=== PATIENT | male | born 1940 | race Caucasian/White ===

== ENCOUNTER → 2016-10-07 | Day surgery (SDC) | payer OTHER, BC ==
[2016-10-05 08:12] VITALS: BMI 27.0
[~2016-10-07] VITALS: Ht 182.9 cm; Wt 90.9 kg
[~2016-10-07] MED LIST: CARB25TA12 PO; ENTA200T PO; LIDOCAINE HCL 2% 2 ML VIAL (20MG/ML) ONE; MIDAZOLAM HCL 1 MG/ML 2ML VIAL ONE; ONDANSETRON INJ 2 MG/ML 2 ML VIAL ONE; PRAM3TAB PO; PROB1TAB16 PO; PROPOFOL IV EMULSION 10 MG/ML 20 ML VIAL IV ONE; RASA1TAB PO; SODIUM CHLORIDE 0.9% 500ML 500 ML IV ONE; TPRSR50 PO; WARF2.5T8 PO
[2016-10-07 12:29] VITALS: Ht 182.9 cm; Wt 90.9 kg
--- NOTE | 2016-10-07 13:06 | Endo History and Physical ---
History & Physical Date of Service: Oct 07, 2016. Chief Complaint: Hx polyps Referring Physician: Dr. Lan Nolasco History of Present Illness 76 yo CM who presents for colonoscopy secondary to history of polyps. Past Surgical History Hx Cardiac Surgery: No Hx Internal Defibrillator: No Hx Pacemaker: No Hx Abdominal Surgery: Yes (HERNIA REPAIR) Hx of Implantable Prosthesis: No Hx Post-Op Nausea and Vomiting: No Hx Cancer Surgery: Yes (BCC(MULTI) SCC(X1) REMOVALS) Hx Thoracic Surgery: No Hx Orthopedic: No Hx Urinary Tract Surgery: No Family History Colon CA Social History Smoking Status: Former Smoker Hx Substance Use: No Hx Alcohol Use: No Allergies Coded Allergies: No Known Allergies (Verified , 10/07/16) Current Medications Reported Home Medications Medications Dose Route/Sig Max Daily Dose Days Date Category Probiotic (Probiotic Product) 1 Tab Tab 2 Tabs PO QAM 10/05/16 Reported Metoprolol Succinate ER (Metoprolol Succinate) 50 Mg Tabcr 1 Tab PO DAILY PRN 10/05/16 Reported Mirapex Er (Pramipexole Dihydrochloride) 3 Mg Tab 1 Tab PO HS 10/05/16 Reported Azilect (Rasagiline Mesylate) 1 Mg Tab 1 Mg PO QAM 10/05/16 Reported Sinemet 25MG/100MG (Carbidopa/Levodopa) Tab 2.5 Tabs PO Q6H 10/05/16 Reported Comtan (Entacapone) 200 Mg Tab 200 Mg PO TID 10/05/16 Reported Jantoven (Warfarin Sodium) 2.5 Mg Tab 2.5 Mg PO QAM 10/05/16 Reported Vital Signs Weight (Kilograms): 90.91 Height (Feet): 6 Height (Inches): 0 Date Time Temp Pulse Resp B/P Pulse Ox O2 Delivery O2 Flow Rate FiO2 10/07/16 12:34 36.3 73 20 100/55 94 Room Air Physical Exam General Appearance: WD/WN, no apparent distress Respiratory/Chest: Auscultation: breath sounds normal Cardiovascular: Heart Auscultation: RRR Abdomen: Bowel Sounds: normal Inspection & Palpation: soft, non-distended, no tenderness, guarding & rebound Assessment and Plan Assessment: 76 yo CM who presents for colonoscopy secondary to history of polyps. Plan: Proceed with colonoscopy.
--- NOTE | 2016-10-07 13:34 | Discharge Instructions ---
Endoscopy Patient Instructions Date / Procedure(s) Performed Oct 07, 2016. Colonoscopy Allergy Information Coded Allergies: No Known Allergies (Verified , 10/07/16) Discharge Date / Findings Oct 07, 2016. Colon polyps Diverticulosis Internal hemorrhoids Medication Instructions Stopped Medication(s): Warfarin Restart Stopped Medication(s): OK to resume all medications today as prescribed. Reported Home Medications Medications Dose Route/Sig Max Daily Dose Days Date Category Probiotic (Probiotic Product) 1 Tab Tab 2 Tabs PO QAM 10/05/16 Reported Metoprolol Succinate ER (Metoprolol Succinate) 50 Mg Tabcr 1 Tab PO DAILY PRN 10/05/16 Reported Mirapex Er (Pramipexole Dihydrochloride) 3 Mg Tab 1 Tab PO HS 10/05/16 Reported Azilect (Rasagiline Mesylate) 1 Mg Tab 1 Mg PO QAM 10/05/16 Reported Sinemet 25MG/100MG (Carbidopa/Levodopa) Tab 2.5 Tabs PO Q6H 10/05/16 Reported Comtan (Entacapone) 200 Mg Tab 200 Mg PO TID 10/05/16 Reported Jantoven (Warfarin Sodium) 2.5 Mg Tab 2.5 Mg PO QAM 10/05/16 Reported Provider Instructions Activity Restrictions - No exercising or heavy lifting for 24 hours. - Do not drink alcohol the day of the procedure. - Do not drive a car or operate machinery until the day after the procedure. - Do not make any important decisions or sign important papers in 24 hours after the procedure. Following Day: - Return to full activity which may include returning to work/school. Diet Start your diet with liquids and light foods (jello, soup, juice, toast). Then eat your usual diet if not nauseated. Treatment For Common After Affects For mild abdominal pain, bloating, or excessive gas: - Rest - Eat lightly - Lie on right side Follow-Up Information Follow-up with Dr. Lan Nolasco as scheduled Anesthesia Information What You Should Know You have had a procedure that required some medicine to reduce anxiety and discomfort. This treatment is called moderate sedation. After receiving the treatment, you may be sleepy, but you will be able to breathe on your own. The effects of the treatment may last for several hours. Follow these instructions along with Activity/Diet recommendations noted above: * Do NOT do anything where dizziness or clumsiness would be dangerous. * Rest quietly at home today, then you can be up and about tomorrow. * Have a responsible person stay with you the rest of today. * You may have had an I.V. today. If so, you may take the dressing off later today. Recommendations Call your doctor if: * Trouble breathing * Continuous vomiting for more than 24 hours * Temperature above 101 degrees * Severe abdominal pain or bloating * Pain not relieved by pain medicine ordered * There is increased drainage or redness from any incision * A large amount of rectal bleeding greater than 2-3 tablespoons. (If you had a polyp/s removed or have hemorrhoids, a small amount of blood - from the rectum is to be expected.) * You have any unanswered questions or concerns. IN THE EVENT OF A SERIOUS EMERGENCY, GO TO THE NEAREST EMERGENCY ROOM Your discharge instructions were prepared by provider Elvin Neri. Patient Instructions Signature Page Efrem Perea Patient (or Guardian) Signature/Date: I have read and understand the instructions given to me by my caregivers. Caregiver/RN/Doctor Signature/Date: The above-named patient and/or guardian has received patient instructions on this date. + Original Patient Signature Page (only) stays with chart. Please make copy for patient.
--- NOTE | 2016-10-07 13:38 | GI REPORT ---
Procedure Date: 10/07/2016 1:03 PM Procedure: Colonoscopy Indications: High risk colon cancer surveillance: Personal history of colonic polyps, Family history of colon cancer in a first-degree relative Medicines: Monitored Anesthesia Care Complications: No immediate complications. Estimated Blood Loss: Estimated blood loss: none. Procedure: Pre-Anesthesia Assessment: - Prior to the procedure, a History and Physical was performed, and patient medications and allergies were reviewed. The patient's tolerance of previous anesthesia was also reviewed. The risks and benefits of the procedure and the sedation options and risks were discussed with the patient. All questions were answered, and informed consent was obtained. Prior Anticoagulants: The patient has taken Coumadin (warfarin), last dose was 1 day prior to procedure. ASA Grade Assessment: III - A patient with severe systemic disease. After reviewing the risks and benefits, the patient was deemed in satisfactory condition to undergo the procedure. After I obtained informed consent, the scope was passed under direct vision. Throughout the procedure, the patient's blood pressure, pulse, and oxygen saturations were monitored continuously. The scope was introduced through the anus and advanced to the cecum, identified by appendiceal orifice and ileocecal valve. The colonoscopy was performed without difficulty. The patient tolerated the procedure well. The quality of the bowel preparation was poor. The terminal ileum, ileocecal valve, appendiceal orifice, and rectum were photographed. Findings: Two sessile polyps were found in the ascending colon. The polyps were 4 to 6 mm in size. These polyps were removed with a hot snare. Resection was complete, but the polyp tissue was not retrieved. Multiple small-mouthed diverticula were found in the sigmoid colon. Non-bleeding internal hemorrhoids were found during retroflexion. The hemorrhoids were small. Impression: - Preparation of the colon was poor. - Two 4 to 6 mm polyps in the ascending colon, removed with a hot snare. Complete resection. Polyp tissue not retrieved. - Diverticulosis in the sigmoid colon. - Non-bleeding internal hemorrhoids. Recommendation: - Resume previous diet. - Continue present medications. - Repeat colonoscopy in 6 months because the bowel preparation was poor. - Return to primary care physician as previously scheduled. Elvin Neri DO 10/07/2016 1:36:50 PM This report has been signed electronically. Note Initiated On: 10/07/2016 1:03 PM
[2016-10-07 14:06] VITALS: BP 117/67; PULSE 78; O2SAT 95
--- NOTE | 2016-10-07 14:20 | Anesthesiology Progress Note ---
Anesthesia Post Op Note Date & Time Oct 07, 2016 at 14:20 Vital Signs Pain Intensity: 0 Vital Signs Past 12 Hours Date Time Temp Pulse Resp B/P Pulse Ox O2 Delivery O2 Flow Rate FiO2 10/07/16 14:06 78 20 117/67 95 Room Air 10/07/16 13:51 78 20 99/69 96 Room Air 10/07/16 13:36 86 20 112/77 96 Nasal Cannula 5 10/07/16 12:34 36.3 73 20 100/55 94 Room Air Notes Mental Status: alert / awake / arousable, participated in evaluation Pt Amnestic to Procedure: Yes Nausea / Vomiting: adequately controlled Pain: adequately controlled Airway Patency, RR, SpO2: stable & adequate BP & HR: stable & adequate Hydration State: stable & adequate Anesthetic Complications: no major complications apparent
== END | disposition home or self-care (01) ==
LOC: C.GI 12:05
PROVIDERS: ATTEND Internal Medicine
DX: Z12.11 Encounter for screening for malignant neoplasm of colon (principal); D12.2 Benign neoplasm of ascending colon; K57.30 Diverticulosis of large intestine without perforation or abscess without bleeding; K64.8 Other hemorrhoids; Z86.010 Personal history of colon polyps; G20 Parkinson's disease; I48.91 Unspecified atrial fibrillation; Z98.890 Other specified postprocedural states; Z87.891 Personal history of nicotine dependence; Z68.27 Body mass index [BMI] 27.0-27.9, adult; Z79.01 Long term (current) use of anticoagulants; Z80.0 Family history of malignant neoplasm of digestive organs; Z85.828 Personal history of other malignant neoplasm of skin

== ENCOUNTER → 2016-11-05 | Outpatient (CLI) | payer OTHER, BC ==
[~2016-11-05] MED LIST changes: -LIDOCAINE HCL 2% 2 ML VIAL (20MG/ML) ONE; -MIDAZOLAM HCL 1 MG/ML 2ML VIAL ONE; -ONDANSETRON INJ 2 MG/ML 2 ML VIAL ONE; -PROPOFOL IV EMULSION 10 MG/ML 20 ML VIAL IV ONE; -SODIUM CHLORIDE 0.9% 500ML 500 ML IV ONE
[2016-11-05 16:01] LABS: CREATININE 1.2 mg/dl (0.6-1.4)
--- NOTE | 2016-11-13 08:46 | CODING QUERY NO DIAGNOSIS ---
: 1940 TREATMENT RENDERED WITHOUT A DIAGNOSIS To promote full compliance with coding requirements relating to patient care, physician participation is requested in all cases of clinical information systems director uncertainty. Please assist us with providing a diagnosis/symptom for the test(s) below: A diagnosis/symptom was not documented on your Order. A valid diagnosis/symptom is required to bill all insurances. Please remember that we are unable to code a diagnosis of rule out, probable, possible, questionable, or suspected. Tests that require a diagnosis: DOS: 11/05/16 * UA DIAGNOSIS: * Creatinine DIAGNOSIS: Provider Signature: Date: Thank you Cierra Zamora Health Information Management Once completed, please kindly fax back to [phone] For questions please call [phone]
== END | disposition home or self-care (01) ==
LOC: C.LAB1850 13:33
PROVIDERS: ATTEND Internal Medicine Nephrology
DX: Z52.4 Kidney donor (principal)

== ENCOUNTER 2017-10-19 12:58 | Emergency (ER) | payer OTHER, BC ==
[~2017-10-19] VITALS: Ht 188 cm; Wt 95.2 kg
[2017-10-19 13:24] VITALS: TEMP 36.7; Ht 188 cm; Wt 95.2 kg
[2017-10-19] MEDS ORDERED: AMOXICILLIN/CLAVULANATE TAB 875 MG TAB PO ONE (14:15)
--- NOTE | 2017-10-19 14:21 | EMERGENCY ROOM VISIT NOTE ---
History Report prepared by Ebenezer: Elly Ross Under the Supervision of: Dr. Luis Cadena M.D. First contact with patient: 14:05 Chief Complaint: INFECTION Stated Complaint: INFECTED LACERATION LEFT LEG Nursing Triage Summary: Pt reports laceration LLE that he is concerned is infected. States lac 4 weeks ago. Increased redness and swelling. States was seen in [place] for it and it was sutured. History of Present Illness The patient is a 77 year old male who presents to the Emergency Room with complaints of a left lower extremity infection beginning today. The patient states that four weeks ago, he ran into the side of a table which caused a laceration of his left lower leg. The patient states that he got it sutured in [place]. He reports that today he has had swelling and drainage of his left lower extremity, but no odor or pain. The patient also denies having fevers and chills. He states that he is on Coumadin, and reports that he is not diabetic. Source of History: patient Onset: today Position: leg (left) Quality: other (infection ) Associated Symptoms: No fevers, No chills Note: additional symptoms: swelling and drainage of left lower extremity denies: odor and pain of the left lower extremity Review of Systems See HPI for pertinent positives & negatives. A total of 10 systems reviewed and were otherwise negative. Past Medical & Surgical Medical Problems: (1) Abdominal hernia Family History FH: colon cancer Social History Smoking Status: Former Smoker Marital Status: Current/Historical Medications Scheduled Amoxicillin & Pot Clavulanate (Augmentin 875-125 mg), 875 MG PO BID Carbidopa/Levodopa (Sinemet 25MG/100MG), 2.5 TABS PO Q6H Entacapone (Comtan), 200 MG PO TID Pramipexole Dihydrochloride (Mirapex Er), 1 TAB PO HS Probiotic Product (Probiotic), 2 TABS PO QAM Rasagiline Mesylate (Azilect), 1 MG PO QAM Warfarin Sod (Jantoven), 2.5 MG PO QAM Scheduled PRN Metoprolol Succinate (Metoprolol Succinate ER), 1 TAB PO DAILY PRN for TACHY Allergies Coded Allergies: No Known Allergies (Verified , 10/07/16) Physical Exam Vital Signs Date Time Temp Pulse Resp B/P (MAP) Pulse Ox O2 Delivery O2 Flow Rate FiO2 10/19/17 14:27 75 18 143/92 96 10/19/17 13:24 36.7 89 16 122/60 93 Room Air Physical Exam GENERAL: Patient is in no acute distress. HEENT: No acute trauma, normocephalic atraumatic, mucous membranes moist, no nasal congestion, no scleral icterus. NECK: No stridor, no adenopathy, no meningismus, trachea is midline. LUNGS: Clear to auscultation bilaterally, no wheeze, no rhonchi, breath sounds equal. HEART: Irregular with a normal rate, no murmurs. ABDOMEN: Soft, nontender, bowel sounds positive, no hernias, no peritonitis. EXTREMITIES: Mild bilateral pedal edema. Left lower extremity has healing laceration with some mild surrounding erythema. No warmth. Clear drainage noted. No evidence clinically for fluctuance. No signs of ascending infection. NEUROLOGIC: Oriented x 3, no acute motor or sensory deficits, no focal weakness. SKIN: No rash, no jaundice, no diaphoresis. Medical Decision & Procedures Medications Administered Medications (Trade) Dose Ordered Sig/Tasha Route Start Time Stop Time Status Last Admin Dose Admin Amoxicillin/ Clavulanate Potassium (Augmentin Tab) 875 mg ONE ONCE PO 10/19/17 14:15 10/19/17 14:16 DC 10/19/17 14:26 875 MG ED Course 1405: The patient was evaluated in room A12B. A complete history and physical exam was performed. 1415: Ordered Augmentin Tab 875 mg PO. 1420: Discussed discharge instructions: He verbalized understanding and agreement. The patient is ready for discharge. Medical Decision The patient is a 77 year old male who presents to the ED with complaints of a left lower extremity infection. Differential diagnoses considered include cellulitis, wound infection, abscess, and hematoma. The patient presents with some clear drainage and some mild erythema to a wound that he suffered about 4 weeks ago. He was concerned about the start of infection. He has not had fever or chills. He has no pain in the area. The patient has some mild erythema around the laceration, there is no pus like drainage. No warmth. No signs of abscess. The patient is not febrile or toxic. A culture of the clear drainage was sent, the results are pending. Given my concerns for the start of cellulitis, the patient was given oral Augmentin. He' ll be discharged on this twice a day. He will follow with his doctor this week. If he has fever, chills, if there is increasing redness or purulent drainage, he will return to the ER for reassessment. Medication Reconcilliation Current Medication List: was personally reviewed by me Blood Pressure Screening Patient's blood pressure: Normal blood pressure Impression Primary Impression: Left leg cellulitis Scribe Attestation The scribe's documentation has been prepared under my direction and personally reviewed by me in its entirety. I confirm that the note above accurately reflects all work, treatment, procedures, and medical decision making performed by me. Departure Information Dispostion Home / Self-Care Prescriptions Amoxicillin & Pot Clavulanate (Augmentin 875-125 mg) 1 Tab Tab 875 MG PO BID for 10 Days, #20 TAB Prov: Luis Cadean M.D. 10/19/17 Referrals Corwin Nolasco D.ORuth (PCP) Forms HOME CARE DOCUMENTATION FORM, IMPORTANT VISIT INFORMATION, WORK / SCHOOL INSTRUCTIONS Patient Instructions My [facility] Additional Instructions augmentin 2x per day for 10 days keep the area dressed and clean with soap and water return for worsening redness, fever, chills, worsening drainage see harrison waters this week for a recheck be sure to have the INR closely followed while on the antibiotics
[2017-10-19] MEDS ORDERED: AMOX875T PO (14:24)
[2017-10-19 14:27] VITALS: BP 143/92; PULSE 75; O2SAT 96
== END 2017-10-19 14:39 | disposition home or self-care (01) ==
LOC: C.EDB 13:00 → C.EDA 14:39
DX: L03.116 Cellulitis of left lower limb (principal); Z79.01 Long term (current) use of anticoagulants; S81.812D Laceration without foreign body, left lower leg, subsequent encounter; W22.8XXD Striking against or struck by other objects, subsequent encounter; Z79.899 Other long term (current) drug therapy

== ENCOUNTER → 2017-12-10 | Outpatient (CLI) | payer OTHER, BC ==
[~2017-12-10] MED LIST changes: -TPRSR50 PO
[2017-12-10 10:20] LABS: BASO % 0.3 %; BASO ABS # 0.02 K/uL (0-0.2); EOS % 2.6 %; EOS ABS # 0.16 K/uL (0-0.5); HEMATOCRIT 49.7 % (42-52); HEMOGLOBIN 16.5 g/dL (14.0-18.0); IG# 0.01 K/uL (0.00-0.02); LYMPH % 27.3 %; MEAN CELL VOLUME 93.2 fL (80-100); MEAN CORPUSCULAR HGB CONC 33.2 g/dl (32-36); MONO % 6.1 %; MONO ABS # 0.38 K/uL (0.11-0.59); NEUT % 63.5 %; NEUT ABS # 3.95 K/uL (1.4-6.5); PLATELET COUNT 168 K/uL (130-400); RED CELL DISTRIBUTION WIDTH CV 14.1 % (11.5-14.5); WHITE BLOOD COUNT 6.22 K/uL (4.8-10.8)
[2017-12-10 10:33] LABS: ALBUMIN 3.8 gm/dl (3.4-5.0); ALT/SGPT 8 U/L (12-78); AST/SGOT 17 U/L (15-37); BLOOD UREA NITROGEN 22 mg/dl (7-18); CALCIUM 8.5 mg/dl (8.5-10.1); CARBON DIOXIDE 30 mmol/L (21-32); CREATININE 1.15 mg/dl (0.60-1.40); GLUCOSE 87 mg/dl (70-99); POTASSIUM 4.2 mmol/L (3.5-5.1); SODIUM 142 mmol/L (136-145)
[2017-12-10 10:44] LABS: ALKALINE PHOSPHATASE 92 U/L (45-117); CHOLESTEROL 152 mg/dl (0-200); LDL CHOLESTEROL CALCULATED 93 mg/dl; TOTAL PROTEIN 7.2 gm/dl (6.4-8.2)
== END | disposition home or self-care (01) ==
LOC: C.LAB 09:13
PROVIDERS: ATTEND Internal Medicine
DX: I48.91 Unspecified atrial fibrillation (principal); W57.XXXA Bitten or stung by nonvenomous insect and other nonvenomous arthropods, initial encounter; G20 Parkinson's disease; R16.1 Splenomegaly, not elsewhere classified; N40.0 Benign prostatic hyperplasia without lower urinary tract symptoms; H91.90 Unspecified hearing loss, unspecified ear; S81.802A Unspecified open wound, left lower leg, initial encounter

== ENCOUNTER → 2018-01-20 | Outpatient (CLI) | payer OTHER, BC ==
[2018-01-20 17:50] LABS: URIC ACID 4.7 mg/dl (2.6-7.2)
--- NOTE | 2018-01-20 18:02 | DIAGNOSTIC IMAGING REPORT ---
CHEST 2 VIEWS ROUTINE CLINICAL HISTORY: 77 years-old Male presenting with R06.09 Dyspnea on [id number]. TECHNIQUE: PA and lateral views of the chest were obtained. COMPARISON: 03/02/2016. FINDINGS: Atherosclerosis of aortic arch. Cardiac silhouette enlarged. Lungs and pleural spaces clear. Osseous structures normal. Upper abdomen normal. IMPRESSION: 1. Cardiomegaly. No other convincing evidence of acute cardiopulmonary disease. Electronically signed by: Jeffery Werner M.D. 01/20/2018 6:01 PM Dictated Date/Time: 01/20/2018 6:00 PM
== END | disposition home or self-care (01) ==
LOC: C.RADBC 15:32
PROVIDERS: ATTEND Internal Medicine
DX: R06.09 Other forms of dyspnea (principal); M25.50 Pain in unspecified joint; M79.1 Myalgia; I73.00 Raynaud's syndrome without gangrene

== ENCOUNTER 2019-08-23 14:44 | Inpatient (IN) ==
[2019-08-23] MEDS ORDERED: SODIUM CHLORIDE 0.9% 1000ML 1,000 ML IV ONE (16:47)
--- NOTE | 2019-08-23 17:13 | Emergency Department Note ---
ED Visit Note Was seen with Dr. Ambrocio, please see his note for details. Resident Activity Tracking Resident Involvement: Resident Care Provided Care Provided: [facility]
[2019-08-23 17:14] LABS: Basophils # (auto) 0.01 K/uL (0-0.2); Basophils % (auto) 0.1 %; Eosinophils # (auto) 0.16 K/uL (0-0.5); Eosinophils % (auto) 2.3 %; Hematocrit (blood only) 46.2 % (42-52); Hemoglobin 15.5 g/dL (14.0-18.0); Immature Granulocytes # (auto) 0.02 K/uL (0.00-0.02); Immature Granulocytes % (auto) 0.3 %; Lymphocytes # (auto) 1.36 K/uL (1.2-3.4); Lymphocytes % (auto) 19.8 %; Mean Corpuscular Hemoglobin 31.3 pg (25-34); Mean Corpuscular Hgb Conc 33.5 g/dL (32-36); Mean Corpuscular Volume 93.3 fL (80-100); Mean Platelet Volume 10.3 fL (7.4-10.4); Monocytes # (auto) 0.52 K/uL (0.11-0.59); Monocytes % (auto) 7.6 %; Neutrophils % (auto) 69.9 %; Platelet Count 153 K/uL (130-400); RDW Coefficient of Variation 14.2 % (11.5-14.5); RDW Standard Deviation 48.1 fL (36.4-46.3); Red Blood Count 4.95 M/uL (4.7-6.1); White Blood Count 6.87 K/uL (4.8-10.8)
--- NOTE | 2019-08-23 17:16 | XRay Report ---
XR chest 1V portable CLINICAL HISTORY: weakness dyspnea COMPARISON STUDY: 08/18/2019 FINDINGS: Minimal parenchymal infiltrative process left lung base. This is combined with platelike at electasis. Mild cardiac enlargement. Lungs otherwise appear clear. IMPRESSION: Minimal interstitial infiltrate left lung base. Stable cardiac enlargement. The above report was generated using voice recognition software. It may contain grammatical, syntax or spelling errors. Electronically signed by: Jose Juan Lemus M.D. 08/23/2019 5:15 PM
[2019-08-23] MEDS ORDERED: PIPERACILLIN/TAZOBACTAM 4.5 GM/120 ML BAG IV ONE (17:24)
[2019-08-23] MEDS ORDERED: PIPERACILL/TAZOBAC CONSULT ACTIVE PRN ×2 (17:24→22:16)
--- NOTE | 2019-08-23 17:24 | Emergency Department Note ---
Entered by Batsheva Moreno acting as a scribe for History of Present Illness General Chief complaint: Hypotension Stated complaint: FAINT, BP LOW Time Seen by Provider: 08/23/19 16:07 Source: patient History of Present Illness Provider complaint: Near Syncope Onset (ago): day(s) 5 Pain Consistency: + other (Episodic) Maximum Pain Intensity: 0 Relieved By: + none Exacerbated By: + movement Associated symptoms: + denies other symptoms (Melena or hematochezia) and + weakness; no chest pain and no shortness of breath The patient is a 79 year old male who presents to the Emergency Room with complaints of episodic near syncope that began 5 days ago. The patient notes that he was at the ED on Wednesday for the same symptoms and was given a halter monitor. The patient states the symptoms are exacerbated by exertion, specifi nicanor going up stairs, and is not relieved by anything specific. The patient reports experiencing weakness but denies any chest pain or shortness of breath. The patient denies experiencing melena or hematochezia. Home Medications Home Medications Medication Instructions Recorded Confirmed Type pramipexole 3 mg tablet,extended 3 mg PO HS #90 tab 04/10/19 08/23/19 History release 24 hr levothyroxine 25 mcg tablet 25 mcg PO QAM #90 tab 05/02/19 08/23/19 History rasagiline 1 mg tablet 1 mg PO QAM #90 tab 05/02/19 08/23/19 History entacapone 200 mg tablet 200 mg PO TID #270 tab 06/29/19 08/23/19 History carbidopa-levodopa 1 tab PO TID 08/18/19 08/23/19 History ergocalciferol (vitamin D2) 50,000 units PO TU 08/18/19 08/23/19 History naproxen sodium [Aleve] 220 mg PO Q8H PRN 08/18/19 08/23/19 History rivaroxaban [Xarelto] 20 mg PO HS 08/18/19 08/23/19 History Allergies Allergy/AdvReac Type Severity Reaction Status Date / Time No Known Drug Allergies Allergy Verified 08/23/19 16:49 Past Med/Surg History Medical History Arthralgia of multiple joints (Acute) Atrial fibrillation (Chronic) BPH (benign prostatic hyperplasia) (Acute) Dyspnea on exertion (Acute) Elevated PSA (Chronic) Hypertension (Chronic) Hypothyroidism, adult (Chronic) Idiopathic polyneuropathy (Acute) Lymphedema (Acute) Moderate mitral regurgitation (Acute) Moderate tricuspid regurgitation (Acute) Parkinson's disease (Chronic) Peripheral edema (Acute) Raynaud's disease (Acute) Splenomegaly (Acute) Venous insufficiency (chronic) (peripheral) (Acute) Visual hallucination (Acute) Vitamin D deficiency (Acute) Family History Unknown Myocardial infarction Father Cardiac disorder Mother Colon cancer Social History Preferred Language: [place] marital status: Current Living Situation: Spouse current occupational status: retired Feels Safe at Home: Yes Smoking Status: Never smoker Review of Systems See HPI for pertinent positives & negatives. and A total of 10 systems reviewed and were otherwise negative Physical Exam Vital Signs Vital Signs - 24 hr 08/23/19 14:55 08/23/19 16:08 08/23/19 16:20 Temperature 36.6 C Temperature Source Oral Pulse Rate 86 77 78 Pulse Rate from SpO2 Sensor Respiratory Rate 16 19 24 Respiratory Effort / Characteristics Non-Labored Spontaneous Respiratory Depth Normal Respiratory Pattern Regular Blood Pressure 131/89 145/119 H Blood Pressure Mean 103 125 Blood Pressure Position Sitting Pulse Oximetry 93 94 Oxygen Delivery Method Room Air Room Air Sepsis Recent Fever Within 48 Hours No Sepsis New/Unexplained Change in Mental Status No Sepsis Action Taken by Nursing No Action Required 08/23/19 16:30 08/23/19 17:00 08/23/19 17:30 Temperature Temperature Source Pulse Rate 84 82 90 Pulse Rate from SpO2 Sensor 92 H Respiratory Rate 24 21 14 Respiratory Effort / Characteristics Respiratory Depth Respiratory Pattern Blood Pressure 160/115 H 152/93 H Blood Pressure Mean 124 107 Blood Pressure Position Pulse Oximetry 93 100 Oxygen Delivery Method Room Air Room Air Sepsis Recent Fever Within 48 Hours Sepsis New/Unexplained Change in Mental Status Sepsis Action Taken by Nursing 08/23/19 17:31 08/23/19 18:30 08/23/19 18:35 Temperature Temperature Source Pulse Rate 83 94 H 81 Pulse Rate from SpO2 Sensor 90 87 Respiratory Rate 16 24 16 Respiratory Effort / Characteristics Respiratory Depth Respiratory Pattern Blood Pressure 162/86 H 180/97 H Blood Pressure Mean 123 124 Blood Pressure Position Pulse Oximetry 95 99 Oxygen Delivery Method Room Air Room Air Sepsis Recent Fever Within 48 Hours Sepsis New/Unexplained Change in Mental Status Sepsis Action Taken by Nursing 08/23/19 18:36 08/23/19 18:37 08/23/19 19:00 Temperature Temperature Source Pulse Rate 87 84 85 Pulse Rate from SpO2 Sensor 87 86 92 H Respiratory Rate 17 12 21 Respiratory Effort / Characteristics Respiratory Depth Respiratory Pattern Blood Pressure 180/97 H Blood Pressure Mean 130 Blood Pressure Position Pulse Oximetry 100 99 97 Oxygen Delivery Method Room Air Room Air Room Air Sepsis Recent Fever Within 48 Hours Sepsis New/Unexplained Change in Mental Status Sepsis Action Taken by Nursing 08/23/19 19:01 08/23/19 19:04 08/23/19 19:08 Temperature Temperature Source Pulse Rate 97 H 89 92 H Pulse Rate from SpO2 Sensor 99 H 88 98 H Respiratory Rate 25 H 26 H 21 Respiratory Effort / Characteristics Respiratory Depth Respiratory Pattern Blood Pressure 219/129 H 203/127 H 193/130 H Blood Pressure Mean 151 150 153 Blood Pressure Position Pulse Oximetry 95 97 96 Oxygen Delivery Method Room Air Room Air Room Air Sepsis Recent Fever Within 48 Hours Sepsis New/Unexplained Change in Mental Status Sepsis Action Taken by Nursing 08/23/19 19:11 08/23/19 19:30 Temperature Temperature Source Pulse Rate 115 H 100 H Pulse Rate from SpO2 Sensor 101 H Respiratory Rate 22 24 Respiratory Effort / Characteristics Respiratory Depth Respiratory Pattern Blood Pressure 218/129 H 204/120 H Blood Pressure Mean 160 174 Blood Pressure Position Pulse Oximetry 97 Oxygen Delivery Method Room Air Sepsis Recent Fever Within 48 Hours Sepsis New/Unexplained Change in Mental Status Sepsis Action Taken by Nursing GENERAL: Awake, alert, cachexia in appearance, in no acute distress HENT: Normocephalic, atraumatic. Oropharynx unremarkable. EYES: Normal conjunctiva. Sclera non-icteric. NECK: Supple. No nuchal rigidity. FROM. No JVD. RESPIRATORY: Bilateral wheezing. CARDIAC: Regular rate, normal rhythm. Extremities warm and well perfused. Pulses equal. ABDOMEN: Soft, non-distended. No tenderness to palpation. No rebound or guarding. No masses. RECTAL: Deferred. MUSCULOSKELETAL: Chest examination reveals no tenderness. The back is symmetrical on inspection without obvious abnormality. There is no CVA tenderness to palpation. No joint edema. LOWER EXTREMITIES: Calves are equal size bilaterally and non-tender. No edema. No discoloration. NEURO: Normal sensorium. No sensory or motor deficits noted. SKIN: No rash or jaundice noted. Course Course 1600: Past medical records reviewed. The patient was evaluated in room B11B. A complete history and physical exam was performed. Administered Medications Ioversol (Optiray 320 125ml) 118 ml IV ONCE PRN PRN Reason: Interaction Checking Stop: 08/27/19 17:58 Last Admin: 08/23/19 18:02 Dose: 118 ml Documented by: [id number] Discontinued Medications Sodium Chloride (Nss 1000ml) 1,000 mls @ 999 mls/hr IV .Q1H1M ONE Stop: 08/23/19 17:47 Last Infusion: 08/23/19 18:12 Dose: 0 mls/hr Documented by: [id number] Admin: 08/23/19 17:11 Dose: 999 mls/hr Documented by: [id number] Piperacillin Sod/Tazobactam Sod (Zosyn) 4.5 gm in 120 mls @ 240 mls/hr IV NOW ONE Stop: 08/23/19 17:53 Last Infusion: 08/23/19 19:07 Dose: 0 mls/hr Documented by: [id number] Admin: 08/23/19 18:37 Dose: 240 mls/hr Documented by: [id number] Medical Decision Making Differential Diagnosis Differential Diagnosis includes but is not limited to dehydration, stroke, anemia, hypoglycemia, hyponatremia, hypernatremia, urinary tract infection, pneumonia, bronchitis, sepsis, gastroenteritis, additional abdominal pathology, metabolic abnormalities and infections. Medical Records Attestation: I reviewed the patient's medical records. Home Medications Current Medication List: was personally reviewed by me Laboratory Data Attestation: I reviewed the patient's lab results. Result diagrams: 08/23/19 17:04 08/23/19 17:04 Lab Results 08/23/19 08/23/19 08/23/19 Range/Units 17:04 17:04 17:08 WBC 6.87 (4.8-10.8) K/uL RBC 4.95 (4.7-6.1) M/uL Hgb 15.5 (14.0-18.0) g/dL Hct 46.2 (42-52) % MCV 93.3 (80-100) fL MCH 31.3 (25-34) pg MCHC 33.5 (32-36) g/dL RDW Std Deviation 48.1 H (36.4-46.3) fL RDW Coeff of Marcia 14.2 (11.5-14.5) % Plt Count 153 (130-400) K/uL MPV 10.3 (7.4-10.4) fL Immature Gran % (Auto) 0.3 % Neut % (Auto) 69.9 % Lymph % (Auto) 19.8 % [place] % (Auto) 7.6 % Eos % (Auto) 2.3 % Baso % (Auto) 0.1 % Immature Gran # (Auto) 0.02 (0.00-0.02) K/uL Neut # (Auto) 4.80 (1.4-6.5) K/uL Lymph # (Auto) 1.36 (1.2-3.4) K/uL [place] # (Auto) 0.52 (0.11-0.59) K/uL Eos # (Auto) 0.16 (0-0.5) K/uL Baso # (Auto) 0.01 (0-0.2) K/uL POC D-Dimer > 450 H* (0-450) ng/mlFEU Sodium 140 (136-145) mmol/L Potassium 4.1 (3.5-5.1) mmol/L Chloride 108 H (98-107) mmol/L Carbon Dioxide 28 (21-32) mmol/L Anion Gap 4.0 (3-11) BUN 22 H (7-18) mg/dl Creatinine 1.02 (0.6-1.4) mg/dl Est Cr Clr Drug Dosing 68.5 ml/min Est GFR ( Amer) 81.8 Est GFR (Non-Af Amer) 70.6 BUN/Creatinine Ratio 21.9 H (10-20) Glucose 85 (70-99) mg/dl Calcium 8.5 (8.5-10.1) mg/dl Total Bilirubin 1.0 (0.2-1) mg/dl AST 18 (15-37) U/L ALT 8 L (12-78) U/L Alkaline Phosphatase 88 (45-117) U/L NT-Pro-B Natriuret Pep 1385 (0-1800) pg/ml Total Protein 6.7 (6.4-8.2) gm/dl Albumin 3.5 (3.4-5.0) gm/dl Globulin 3.2 (2.5-4.0) gm/dl Albumin/Globulin Ratio 1.1 (0.9-2) Urine Color Urine Appearance (Clear) Urine pH (4.5-7.5) Ur Specific [place] (1.000-1.030) Urine Protein (Negative) Urine Glucose (UA) (Negative) Urine Ketones (Negative) Urine Blood (Negative) Urine Nitrite (Negative) Urine Bilirubin (Negative) Urine Urobilinogen (Negative) Ur Leukocyte Esterase (Negative) 08/23/19 Range/Units 18:55 WBC (4.8-10.8) K/uL RBC (4.7-6.1) M/uL Hgb (14.0-18.0) g/dL Hct (42-52) % MCV (80-100) fL MCH (25-34) pg MCHC (32-36) g/dL RDW Std Deviation (36.4-46.3) fL RDW Coeff of Marcia (11.5-14.5) % Plt Count (130-400) K/uL MPV (7.4-10.4) fL Immature Gran % (Auto) % Neut % (Auto) % Lymph % (Auto) % [place] % (Auto) % Eos % (Auto) % Baso % (Auto) % Immature Gran # (Auto) (0.00-0.02) K/uL Neut # (Auto) (1.4-6.5) K/uL Lymph # (Auto) (1.2-3.4) K/uL [place] # (Auto) (0.11-0.59) K/uL Eos # (Auto) (0-0.5) K/uL Baso # (Auto) (0-0.2) K/uL POC D-Dimer (0-450) ng/mlFEU Sodium (136-145) mmol/L Potassium (3.5-5.1) mmol/L Chloride (98-107) mmol/L Carbon Dioxide (21-32) mmol/L Anion Gap (3-11) BUN (7-18) mg/dl Creatinine (0.6-1.4) mg/dl Est Cr Clr Drug Dosing ml/min Est GFR ( Amer) Est GFR (Non-Af Amer) BUN/Creatinine Ratio (10-20) Glucose (70-99) mg/dl Calcium (8.5-10.1) mg/dl Total Bilirubin (0.2-1) mg/dl AST (15-37) U/L ALT (12-78) U/L Alkaline Phosphatase (45-117) U/L NT-Pro-B Natriuret Pep (0-1800) pg/ml Total Protein (6.4-8.2) gm/dl Albumin (3.4-5.0) gm/dl Globulin (2.5-4.0) gm/dl Albumin/Globulin Ratio (0.9-2) Urine Color Yellow Urine Appearance Clear (Clear) Urine pH 7.0 (4.5-7.5) Ur Specific [place] 1.021 (1.000-1.030) Urine Protein Negative (Negative) Urine Glucose (UA) Negative (Negative) Urine Ketones Negative (Negative) Urine Blood Negative (Negative) Urine Nitrite Negative (Negative) Urine Bilirubin Negative (Negative) Urine Urobilinogen Negative (Negative) Ur Leukocyte Esterase Negative (Negative) Imaging Data Radiologist's Impression: Radiology results as stated below per my review and the radiologist's interpretation: XR chest 1V portable CLINICAL HISTORY: weakness dyspnea COMPARISON STUDY: 08/18/2019 FINDINGS: Minimal parenchymal infiltrative process left lung base. This is combined with platelike atelectasis. Mild cardiac enlargement. Lungs otherwise appear clear. IMPRESSION: Minimal interstitial infiltrate left lung base. Stable cardiac enlargement. The above report was generated using voice recognition software. It may contain grammatical, syntax or spelling errors. Electronically signed by: Jose Juan Lemus M.D. 08/23/2019 5:[address] angio chest PE protocol CT DOSE: 542.30 mGy.cm HISTORY: Chest pain PE TECHNIQUE: Multiaxial CT images of the chest were performed following the intravenous administration of contrast to evaluate the pulmonary arteries. Maximal intensity projection images were also obtained. A dose lowering technique was utilized adhering to the principles of ALARA. COMPARISON STUDY: None. FINDINGS: Moderate atherosclerotic change and ectasia of the thoracic aorta. Moderate cardiac enlargement. Minimal pericardial effusion. Pulmonary vasculature enhances appropriately. No significant mediastinal or hilar adenopathy Mid and upper lungs are considered clear. There are interstitial infiltrates at the left and to a lesser extent right base. IMPRESSION: 1. No evidence of pulmonary embolus. 2. Minimal interstitial infiltrative change left and to a lesser extent right base. 3. Minimal pericardial effusion. The above report was generated using voice recognition software. It may contain grammatical, syntax or spelling errors. Electronically signed by: Jose Juan Lemus M.D. 08/23/2019 6:24 PM ECG Data Attestation: I personally reviewed and interpreted this ECG as follows: Indication: + syncope (Near) Rate (beats per minute): 81 Rhythm: + atrial fibrillation ECG Intervals/blocks: + Normal QT-c (QTC 455) ECG [place]: + Right axis deviation ECG ST segments: + Normal ST segments Blood Pressure Blood Pressure Findings: Elevated blood pressure Blood Pressure Disposition: further management by hospitalist [facility] Narrative This is a 79-year-old male who presents emergency department over concerns that the patient is hypotensive and has passed out twice in the past week. Using shared medical decision making with the patient decision was made to send the patient for chest x-ray which was concerning for pneumonia. He does have an elevation in his d-dimer therefore he was sent for CAT scan of the chest which confirmed the pneumonia. Change worsened as the patient's blood pressure here is very labile I did discuss the case with the hospitalist service who did agree to meet the patient. In the meantime the patient started on Zosyn as well as Levaquin. Impression & Plan Syncope, Hypoglycemia, Pneumonia Discharge Plan Visit Data Chief Complaint: Hypotension Stated Complaint: FAINT, BP LOW ED Provider: Tigre Ambrocio ED Midlevel Provider: Dudley Peters Discharge Problem: Syncope, Hypoglycemia, Pneumonia Forms Stand Alone Forms: My [facility] CodeEval Prescriptions Prescriptions: No Action pramipexole 3 mg tablet extended release 24 hr 3 mg PO HS Qty: 90 RF: 0 entacapone 200 mg tablet 200 mg PO TID Qty: 270 RF: 0 levothyroxine 25 mcg tablet 25 mcg PO QAM Qty: 90 RF: 0 rasagiline 1 mg tablet 1 mg PO QAM Qty: 90 RF: 0 naproxen sodium [Aleve] 220 mg Tablet 220 mg PO Q8H PRN (Reason: Pain) RF: 0 carbidopa-levodopa 25-250 mg tablet 1 tab PO TID RF: 0 ergocalciferol (vitamin D2) 50,000 unit capsule 50,000 units PO TU RF: 0 Xarelto 20 mg tablet 20 mg PO HS RF: 0 Discharge Problem: Syncope Qualifiers: Syncope type: unspecified Qualified Code(s): R55 - Syncope and collapse Pneumonia Qualifiers: Pneumonia type: due to unspecified organism Laterality: unspecified laterality Lung location: unspecified part of lung Qualified Code(s): J18.9 - Pneumonia, unspecified organism The scribe's documentation has been prepared under my direction and personally reviewed by me in its entirety. I confirm that the note above accurately reflects all work, treatment, procedures, and medical decision making performed by me.
[2019-08-23 17:33] LABS: Albumin Level 3.5 gm/dl (3.4-5.0); BUN Creatinine Ratio 21.9 (10-20); Calcium 8.5 mg/dl (8.5-10.1); Creatinine Clr Calc Pharmacy 68.5 ml/min; Est GFR (African American) 81.8; Est GFR (Non-African American) 70.6; Potassium 4.1 mmol/L (3.5-5.1)
[2019-08-23 17:38] LABS: Albumin Globulin Ratio 1.1 (0.9-2); Globulin 3.2 gm/dl (2.5-4.0); Total Protein 6.7 gm/dl (6.4-8.2)
[2019-08-23] MEDS ORDERED: OPTIRAY 320 125ml IV PRN (17:59)
--- NOTE | 2019-08-23 18:26 | CT Scan Report ---
CT angio chest PE protocol CT DOSE: 542.30 mGy.cm HISTORY: Chest pain PE TECHNIQUE: Multiaxial CT images of the chest were performed following the intravenous administration of contrast to evaluate the pulmonary arteries. Maximal intensity projection images were also obtaine d. A dose lowering technique was utilized adhering to the principles of ALARA. COMPARISON STUDY: None. FINDINGS: Moderate atherosclerotic change and ectasia of the thoracic aorta. Moderate cardiac enlarge ment. Minimal pericardial effusion. Pulmonary vasculature enhances appropriately. No significant mediastinal or hilar adenopathy Mid and upper lungs are considered clear. There are interstitial infiltrates at the left and to a les ser extent right base. IMPRESSION: 1. No evidence of pulmonary embolus. 2. Minimal interstitial infiltrative change left and to a lesser extent right base. 3. Minimal pericardial effusion. The above report was generated using voice recognition software. It may contain grammatical, syntax or spelling errors. Electronically signed by: Jose Juan Lemus M.D. 08/23/2019 6:24 PM
[2019-08-23 19:19] LABS: Appearance Urine Clear (Clear); Bilirubin Urine Negative (Negative); Blood Urine Negative (Negative); Color Urine Yellow; Glucose Urine UA Negative (Negative); Ketones Urine Negative (Negative); Leukocyte Esterase Urine Negative (Negative); Nitrite Urine Negative (Negative); Protein Urine Negative (Negative); Specific Gravity Urine 1.021 (1.000-1.030); Urobilinogen Urine Negative (Negative)
--- NOTE | 2019-08-23 20:53 | History & Physical Report ---
Date of Service August 23, 2019 Assessment & Plan (1) Syncope: Pt is a 79yo M PMH Parkinson disease, hypothyroid, BPH, HTN, permanent afib, chronic venous insufficiency, Raynaud's, who presents for evaluation after worsening symptoms of lightheadedness and syncope. Syncope Concern for autonomic insufficiency from Parkinson's disease versus early Parkinson's plus. Will order repeat echocardiogram, per outpatient cardiology recommendations. Await results from Holter monitor. Consider consulting cardiology. requested we place cardiology consult; will defer to day team. Will place neurology consult; appreciate recs. Patient follows with Dr. Correia. Consider head/neck MRA. Measure orthostatics. Consider further interventions such as tilt table testing, midodrine supplementation, etc. -Complete neurogenic syncope work-up. Abnormal CT/CXR finding -Symptoms not consistent with acute pneumonia. Patient is not coughing is afebrile, not acutely dyspneic, not hypoxic Blood cultures sent IV fluid hydration. We will convert Zosyn initiated in the ER to p.o. azithromycin. Continue to monitor symptoms. Parkinson's disease Continue home regimen of Carbidopa/levodopa, pramipexole, rasagiline, entacapone. Neurology consulted as above. reports things are overall going okay aside from mild bradykinesia and occasional drooling. PT OT eval and treat Hypothyroidism Continue home medication. TSH normal on arrival. Atrial fibrillation Chronic, permanent Continue Xarelto therapy Rate controlled. Raynauds disease Amlodipine DC'd several months ago due to lightheadedness. Code: Full Dispo: Admit to [facility] DVTP: Xarelto (2) Venous insufficiency (chronic) (peripheral): (3) Raynaud's disease: (4) Parkinson's disease: (5) Hypothyroidism, adult: (6) Elevated PSA: (7) Atrial fibrillation: History of Present Illness Chief Complaint: Near syncope Primary Care Provider: LAURA Willoughby Pt is a 79yo M PMH Parkinson disease, hypothyroid, BPH, HTN, permanent afib, chronic venous insufficiency, Raynaud's who presents with acute worsening of lightheadedness and near-syncopal episodes which have been worsening over the past few months. Patient had a syncopal episode 5 days ago and was evaluated in the ER. [place] it coming on, no injury noted. He followed up with his paper box maker, who recommended Holter monitor, which was turned in yesterday, per , and echocardiogram, which has not been performed yet. Patient notes these episodes seem to be worse with exertion as a compared to orthostatic in nature. Notes that he has been more fatigued in the last few days as well. Denies fever, chills, nausea, vomiting, chest pain. While patient does have ventricula r and valvular dysfunction (noted on echo 2018), concern for symptoms related to autonomic insufficiency and parkinson's vs early parkinson's plus. Patient has been off of his amlodipine for several months now, originally given for raynauds, secondary to these episodes of lightheadedness. Patient denies any signs of acute GI bleed. Work-up in the ER revealed a normal CBC, normal BMP, normal BNP of 1385, d-dimer greater than 450. CT angio was negative for acute pulmonary emboli. Chest x- ray revealed minimal interstitial infiltrate in the left lower lobe. Patient and myself not concerned for aspiration despite patient's occasional drooling from Parkinson's. Patient was afebrile and his vital signs were stable. Please note his blood pressure was relatively higher than his baseline. Allergies Allergy/AdvReac Type Severity Reaction Status Date / Time No Known Drug Allergies Allergy Verified 08/23/19 16:49 Home Medications Home Medications Medication Instructions Recorded Confirmed Type pramipexole 3 mg tablet,extended 3 mg PO HS #90 tab 04/10/19 08/23/19 History release 24 hr levothyroxine 25 mcg tablet 25 mcg PO QAM #90 tab 05/02/19 08/23/19 History rasagiline 1 mg tablet 1 mg PO QAM #90 tab 05/02/19 08/23/19 History entacapone 200 mg tablet 200 mg PO TID #270 tab 06/29/19 08/23/19 History Xarelto 20 mg PO HS 08/18/19 08/23/19 History carbidopa-levodopa 1 tab PO TID 08/18/19 08/23/19 History ergocalciferol (vitamin D2) 50,000 units PO TU 08/18/19 08/23/19 History naproxen sodium [Aleve] 220 mg PO Q8H PRN 12/06/19 12/11/19 History azithromycin [Zithromax] 250 mg PO QAM 4 Days #4 tab 08/24/19 Rx Past Med/Surg History Medical History Arthralgia of multiple joints (Acute) Atrial fibrillation (Chronic) BPH (benign prostatic hyperplasia) (Acute) Dyspnea on exertion (Acute) Elevated PSA (Chronic) Hypertension (Chronic) Hypothyroidism, adult (Chronic) Idiopathic polyneuropathy (Acute) Lymphedema (Acute) Moderate mitral regurgitation (Acute) Moderate tricuspid regurgitation (Acute) Parkinson's disease (Chronic) Peripheral edema (Acute) Raynaud's disease (Acute) Splenomegaly (Acute) Venous insufficiency (chronic) (peripheral) (Acute) Visual hallucination (Acute) Vitamin D deficiency (Acute) Family History Unknown Myocardial infarction Father Cardiac disorder Mother Colon cancer Social History Preferred Language: Fijian Communication Ability: Effective Hospice Rn Required: No Beliefs That Will Affect Care: None marital status: Current Living Situation: Spouse current occupational status: retired Feels Safe at Home: Yes Smoking Status: Never smoker Second Hand Exposure: No ; Hx Alcohol Use: Yes Alcohol type: beer Hx Substance Use: No Review of Systems Review of Systems: All systems reviewed & are unremarkable except as noted in HPI & below Constitutional: + fatigue, + weakness and + daytime sleepiness; no fever and no chills Eyes: no blind spots and no diplopia Respiratory: no cough and no dyspnea Cardiovascular: + lightheadedness, + syncope, + edema (chronic) and + Raynauds symptoms; no chest pain, no radiating jaw, neck or arm pain and no palpitations Gastrointestinal: no abdominal pain, no nausea, no vomiting and no change in bowel habits Genitourinary: + difficulty urinating, + urinary hesitancy and + post-void dribbling Neurologic: + gait abnormality, + falls, + generalized weakness and + abnormal movements Physical Exam Physical Exam: General: chronically ill-appearing male, in no significant distress. HEENT: No scleral icterus, PERRLA, neck supple. Atraumatic. Cardiovascular: Regular rate and irreg/irreg rhythm, faint holosystolic murmur. 1- 2+ pitting edema to shins bilaterally Pulmonary: Clear to auscultation bilaterally, normal work of breathing. Abdomen: Soft, nontender, nondistended, positive bowel sounds. Musculoskeletal: Atraumatic, no peripheral edema. Neurologic: Patient awake alert and oriented x 3, full strength in all 4 extremities. Cranial nerves 2 through 12 grossly intact. Skin: Warm, dry, no rash Results & Data Vital Signs (Past 12 Hours) Vital Signs Temp Pulse Resp BP Pulse Ox 08/23/19 20:47 91 H 15 142/86 H 95 08/23/19 20:30 91 H 18 92 08/23/19 20:01 112 H 17 230/217 H 96 08/23/19 20:00 110 H 17 96 08/23/19 19:30 100 H 24 204/120 H 97 08/23/19 19:11 115 H 22 218/129 H 08/23/19 19:08 92 H 21 193/130 H 96 08/23/19 19:04 89 26 H 203/127 H 97 08/23/19 19:01 97 H 25 H 219/129 H 95 08/23/19 19:00 85 21 97 08/23/19 18:37 84 12 180/97 H 99 08/23/19 18:36 87 17 100 08/23/19 18:35 81 16 180/97 H 99 08/23/19 18:30 94 H 24 08/23/19 17:31 83 16 162/86 H 95 08/23/19 17:30 90 14 100 08/23/19 17:00 82 21 152/93 H 08/23/19 16:30 84 24 160/115 H 93 08/23/19 16:20 78 24 08/23/19 16:08 77 19 145/119 H 94 08/23/19 14:55 97.9 F 86 16 131/89 93 Laboratory Results 08/23/19 08/23/19 08/23/19 Range/Units 18:55 17:08 17:04 WBC (4.8-10.8) K/uL RBC (4.7-6.1) M/uL Hgb (14.0-18.0) g/dL Hct (42-52) % MCV (80-100) fL MCH (25-34) pg MCHC (32-36) g/dL RDW Std Deviation (36.4-46.3) fL RDW Coeff of Marcia (11.5-14.5) % Plt Count (130-400) K/uL MPV (7.4-10.4) fL Immature Gran % (Auto) % Neut % (Auto) % Lymph % (Auto) % Brooks % (Auto) % Eos % (Auto) % Baso % (Auto) % Immature Gran # (Auto) (0.00-0.02) K/uL Neut # (Auto) (1.4-6.5) K/uL Lymph # (Auto) (1.2-3.4) K/uL Brooks # (Auto) (0.11-0.59) K/uL Eos # (Auto) (0-0.5) K/uL Baso # (Auto) (0-0.2) K/uL POC D-Dimer > 450 H* (0-450) ng/mlFEU Sodium 140 (136-145) mmol/L Potassium 4.1 (3.5-5.1) mmol/L Chloride 108 H (98-107) mmol/L Carbon Dioxide 28 (21-32) mmol/L Anion Gap 4.0 (3-11) BUN 22 H (7-18) mg/dl Creatinine 1.02 (0.6-1.4) mg/dl Est Cr Clr Drug Dosing 68.5 ml/min Est GFR ( Amer) 81.8 Est GFR (Non-Af Amer) 70.6 BUN/Creatinine Ratio 21.9 H (10-20) Glucose 85 (70-99) mg/dl Calcium 8.5 (8.5-10.1) mg/dl Total Bilirubin 1.0 (0.2-1) mg/dl AST 18 (15-37) U/L ALT 8 L (12-78) U/L Alkaline Phosphatase 88 (45-117) U/L NT-Pro-B Natriuret Pep 1385 (0-1800) pg/ml Total Protein 6.7 (6.4-8.2) gm/dl Albumin 3.5 (3.4-5.0) gm/dl Globulin 3.2 (2.5-4.0) gm/dl Albumin/Globulin Ratio 1.1 (0.9-2) Urine Color Yellow Urine Appearance Clear (Clear) Urine pH 7.0 (4.5-7.5) Ur Specific [place] 1.021 (1.000-1.030) Urine Protein Negative (Negative) Urine Glucose (UA) Negative (Negative) Urine Ketones Negative (Negative) Urine Blood Negative (Negative) Urine Nitrite Negative (Negative) Urine Bilirubin Negative (Negative) Urine Urobilinogen Negative (Negative) Ur Leukocyte Esterase Negative (Negative) 08/23/19 Range/Units 17:04 WBC 6.87 (4.8-10.8) K/uL RBC 4.95 (4.7-6.1) M/uL Hgb 15.5 (14.0-18.0) g/dL Hct 46.2 (42-52) % MCV 93.3 (80-100) fL MCH 31.3 (25-34) pg MCHC 33.5 (32-36) g/dL RDW Std Deviation 48.1 H (36.4-46.3) fL RDW Coeff of Marcia 14.2 (11.5-14.5) % Plt Count 153 (130-400) K/uL MPV 10.3 (7.4-10.4) fL Immature Gran % (Auto) 0.3 % Neut % (Auto) 69.9 % Lymph % (Auto) 19.8 % Brooks % (Auto) 7.6 % Eos % (Auto) 2.3 % Baso % (Auto) 0.1 % Immature Gran # (Auto) 0.02 (0.00-0.02) K/uL Neut # (Auto) 4.80 (1.4-6.5) K/uL Lymph # (Auto) 1.36 (1.2-3.4) K/uL Brooks # (Auto) 0.52 (0.11-0.59) K/uL Eos # (Auto) 0.16 (0-0.5) K/uL Baso # (Auto) 0.01 (0-0.2) K/uL POC D-Dimer (0-450) ng/mlFEU Sodium (136-145) mmol/L Potassium (3.5-5.1) mmol/L Chloride (98-107) mmol/L Carbon Dioxide (21-32) mmol/L Anion Gap (3-11) BUN (7-18) mg/dl Creatinine (0.6-1.4) mg/dl Est Cr Clr Drug Dosing ml/min Est GFR ( Amer) Est GFR (Non-Af Amer) BUN/Creatinine Ratio (10-20) Glucose (70-99) mg/dl Calcium (8.5-10.1) mg/dl Total Bilirubin (0.2-1) mg/dl AST (15-37) U/L ALT (12-78) U/L Alkaline Phosphatase (45-117) U/L NT-Pro-B Natriuret Pep (0-1800) pg/ml Total Protein (6.4-8.2) gm/dl Albumin (3.4-5.0) gm/dl Globulin (2.5-4.0) gm/dl Albumin/Globulin Ratio (0.9-2) Urine Color Urine Appearance (Clear) Urine pH (4.5-7.5) Ur Specific [place] (1.000-1.030) Urine Protein (Negative) Urine Glucose (UA) (Negative) Urine Ketones (Negative) Urine Blood (Negative) Urine Nitrite (Negative) Urine Bilirubin (Negative) Urine Urobilinogen (Negative) Ur Leukocyte Esterase (Negative) Diagnostic Findings CT angio chest PE protocol CT DOSE: 542.30 mGy.cm HISTORY: Chest pain PE TECHNIQUE: Multiaxial CT images of the chest were performed following the intravenous administration of contrast to evaluate the pulmonary arteries. Maximal intensity projection images were also obtained. A dose lowering technique was utilized adhering to the principles of ALARA. COMPARISON STUDY: None. FINDINGS: Moderate atherosclerotic change and ectasia of the thoracic aorta. Moderate cardiac enlargement. Minimal pericardial effusion. Pulmonary vasculature enhances appropriately. No significant mediastinal or hilar adenopathy Mid and upper lungs are considered clear. There are interstitial infiltrates at the left and to a lesser extent right base. IMPRESSION: 1. No evidence of pulmonary embolus. 2. Minimal interstitial infiltrative change left and to a lesser extent right base. 3. Minimal pericardial effusion. XR chest 1V portable CLINICAL HISTORY: weakness dyspnea COMPARISON STUDY: 08/18/2019 FINDINGS: Minimal parenchymal infiltrative process left lung base. This is combined with platelike atelectasis. Mild cardiac enlargement. Lungs otherwise appear clear. IMPRESSION: Minimal interstitial infiltrate left lung base. Stable cardiac enlargement. Code Status & VTE Plan Code Status Full VTE Prophylaxis Plan VTE Prophylaxis will be ordered: Yes Supervising Physician Co-Signing Physician Notes Attending addendum: I have physically seen this patient, have supervised the medical residents activities, and agree with the H&P unless as otherwise noted. Assessment and Plan: Syncope- The patient will be admitted to telemetry for serial cardiac enzymes, serial EKG's, cardiac rhythm monitoring and a 2-D echocardiogram with Dopplers. Consult cardiology. Results of Holter monitor. Consult neurology. Differential includes Parkinson related autonomic dysfunction, orthostatic hypotension, arrhythmia, seizure disorder, others. Consult PT/OT. Remainder of orders and notations as noted. Resident Activity Tracking Resident Involvement: Resident Care Provided Care Provided: Adult Hospital Medicine (1) Atrial fibrillation Atrial fibrillation type: permanent Qualified Code(s): I48.2 - Chronic atrial fibrillation (2) Syncope Syncope type: unspecified Qualified Code(s): R55 - Syncope and collapse
[2019-08-23] MEDS ORDERED: PRAMIPEXOLE DIHYDROCHLO 0.5 MG TAB PO SCH (22:00)
[2019-08-23] MEDS ORDERED: ALUMINUM/MAGNESIUM SUSP 30 ML UDC PO PRN (22:16)
[2019-08-23] MEDS ORDERED: MAGNESIUM HYDROXIDE SUSP 30 ML UDC PO PRN (22:16)
[2019-08-23] MEDS ORDERED: POLYETHYLENE (MIRALAX) 17 GM PACK PO PRN (22:16)
[2019-08-23] MEDS ORDERED: ACETAMINOPHEN 325 MG TAB PO PRN (22:16)
[2019-08-23] MEDS ORDERED: ONDANSETRON INJ 2 MG/ML 2 ML VIAL IV PRN (22:16)
[2019-08-23] MEDS: CARBIDOPA/LEVODOPA 25-250 1 EA TAB PO SCH (23:06)
[2019-08-23] MEDS: RIVAROXABAN 20 MG TAB PO SCH (23:07)
[2019-08-23] MEDS: ENTACAPONE 200 MG TAB PO SCH (23:07)
[2019-08-23] MEDS: SODIUM CHLORIDE 0.9% 1000ML 1,000 ML IV SCH (23:16)
[2019-08-24] MEDS ORDERED: PIPERACILLIN/TAZOBACTAM 3.375 GM in DEXTROSE 5% 100 ML IV SCH
[2019-08-24] MEDS ORDERED: LEVOTHYROXINE SODIUM 25 MCG TABLET PO SCH (06:30)
[2019-08-24 06:57] LABS: Basophils # (auto) 0.02 K/uL (0-0.2); Basophils % (auto) 0.3 %; Eosinophils # (auto) 0.19 K/uL (0-0.5); Eosinophils % (auto) 2.9 %; Hematocrit (blood only) 45.9 % (42-52); Immature Granulocytes # (auto) 0.01 K/uL (0.00-0.02); Immature Granulocytes % (auto) 0.2 %; Lymphocytes # (auto) 1.49 K/uL (1.2-3.4); Lymphocytes % (auto) 23.1 %; Mean Corpuscular Hemoglobin 30.7 pg (25-34); Mean Corpuscular Hgb Conc 32.7 g/dL (32-36); Mean Corpuscular Volume 93.9 fL (80-100); Monocytes # (auto) 0.41 K/uL (0.11-0.59); Monocytes % (auto) 6.3 %; Neutrophils # (auto) 4.34 K/uL (1.4-6.5); Neutrophils % (auto) 67.2 %; Platelet Count 164 K/uL (130-400); RDW Coefficient of Variation 14.1 % (11.5-14.5); RDW Standard Deviation 47.8 fL (36.4-46.3); Red Blood Count 4.89 M/uL (4.7-6.1); White Blood Count 6.46 K/uL (4.8-10.8)
[2019-08-24 07:35] LABS: BUN Creatinine Ratio 14.1 (10-20); Calcium 8.7 mg/dl (8.5-10.1); Creatinine Clr Calc Pharmacy 60.3 ml/min; Est GFR (Non-African American) 60.4; Potassium 4.2 mmol/L (3.5-5.1)
[2019-08-24] MEDS: CARBIDOPA/LEVODOPA 25-250 1 EA TAB PO SCH ×2 (08:14→14:55)
[2019-08-24] MEDS: ENTACAPONE 200 MG TAB PO SCH ×2 (08:14→14:55)
[2019-08-24] MEDS ORDERED: AZITHROMYCIN 250 MG TAB PO SCH (09:00)
--- NOTE | 2019-08-24 10:10 | Discharge Summary ---
Date of Service August 24, 2019 Admission HPI Per Admitting Provider Pt is a 79yo M PMH Parkinson disease, hypothyroid, BPH, HTN, permanent afib, chronic venous insufficiency, Raynaud's who presents with acute worsening of lightheadedness and near-syncopal episodes which have been worsening over the past few months. Patient had a syncopal episode 5 days ago and was evaluated in the ER. [place] it coming on, no injury noted. He followed up with his corporate licensed broker, who recommended Holter monitor, which was turned in yesterday, per , and echocardiogram, which has not been performed yet. Patient notes these episodes seem to be worse with exertion as a compared to orthostatic in nature. Notes that he has been more fatigued in the last few days as well. Denies fever, chills, nausea, vomiting, chest pain. While patient does have ventricular and valvular dysfunction (noted on echo 2018), concern for symptoms related to autonomic insufficiency and parkinson's vs early parkinson's plus. Patient has been off of his amlodipine for several months now, originally given for raynauds, secondary to these episodes of lightheadedness. Patient denies any signs of acute GI bleed. Work-up in the ER revealed a normal CBC, normal BMP, normal BNP of 1385, d-dimer greater than 450. CT angio was negative for acute pulmonary emboli. Chest x- ray revealed minimal interstitial infiltrate in the left lower lobe. Patient and myself not concerned for aspiration despite patient's occasional drooling from Parkinson's. Patient was afebrile and his vital signs were stable. Please note his blood pressure was relatively higher than his baseline. Principal Diagnosis Syncope; Pneumonia Discharge Exam Constitutional WD/WN, vitals as above cooperative and comfortable; no acute distress Eyes + anicteric sclerae and EOM intact bilaterally ENMT external ear and nose normal, oropharynx normal Neck normal visual inspection and trachea midline Respiratory no respiratory distress Auscultation: + crackles (mild bilateral bases; otherwise lungs clear to auscultation) Cardiovascular Rate/Rhythm: regular rate and + irregularly irregular Gastrointestinal (Abdomen) Percussion/Palpation: abdomen soft; abdomen nontender, no guarding and abdomen not rigid Musculoskeletal Head/Neck/Chest: normocephalic and head atraumatic Skin no rashes, warm and dry Neurologic moves all extremities and awake Psychiatric Orientation: alert and oriented x 3 Discharge Data Allergies Allergy/AdvReac Type Severity Reaction Status Date / Time No Known Drug Allergies Allergy Verified 08/23/19 16:49 Consultations 08/23/19 19:10 ED Decision to Admit Stat 08/23/19 22:16 Consult Case Management - Discharge Planning Routine 08/24/19 01:35 Consult Neurology Routine 08/24/19 08:08 Consult Cardiology Routine Ordered Studies 08/23/19 17:24 CT angio chest PE protocol Stat IMPRESSION: 1. No evidence of pulmonary embolus. 2. Minimal interstitial infiltrative change left and to a lesser extent right base. 3. Minimal pericardial effusion. 08/24/19 10:30 FL video swallow Routine 1. No aspiration identified. Hospital Course (1) Syncope: Pt is a 79yo M PMH Parkinson disease, hypothyroid, BPH, HTN, permanent afib, chronic venous insufficiency, Raynaud's, who presents for evaluation after worsening symptoms of lightheadedness and syncope on exertion. Syncope Concern for dysautonomia from Parkinson's disease versus not maintaining adequate hydration vs. pneumonia vs. poor cardiac output vs. orthostatic Repeat echocardiogram, mostly unchanged from prior except for improved EF 50- 55%. Await results from Holter monitor. Follows with [facility] Cardiology who will continue to work up patient as outpatient with possible stress echo. Neurology consulted. Patient follows with Dr. Correia. Had no recent medication changes for his Parkinsons. Orthostatic levels unremarkable. Was able to ambulate with PT without return of symptoms. -ED workup showed Minimal left lower infiltrate, received Zosyn in ED before being changed to Zithromax 250mg PO on admission, received one dose here and will continue 4 more days as outpatient. Possibly could improve with this treatment. -Recommended staying well hydrated, noted to only having a cup of milk for PO intake prior to events yesterday. Discussed keeping diary to stay hydrated with 60 ounces or maintaining clear urine, along with symptoms, which he noted his and him were going to start doing. He ate well AM and with IV fluids didn't have return of symptoms. Most likely multifactorial. (2) Near syncope: (3) Venous insufficiency (chronic) (peripheral): (4) Raynaud's disease: Amlodipine DC'd several months ago due to lightheadedness (5) Parkinson's disease: Continue home regimen of Carbidopa/levodopa, pramipexole, rasagiline, entacapone. There have been no new medication changes. Consideration for arrhythmias from Parkinson's medication and possible orthostatic hypotension. Also consideration that Parkinson's disease is causing autonomic dysfunction. Neurology consulted as above. reports things are overall going okay aside from mild bradykinesia and occasional drooling. He notes that his Parkinson's is localized to oral/lingual. He notes last swallow eval was about 11 years ago that was normal. - RESPITE PROVIDER eval ordered as pneumonia could be aspiration related from Parkinson's. PT OT eval and treat (6) Hypothyroidism, adult: Continue home medication. TSH normal on arrival. (7) Elevated PSA: (8) Atrial fibrillation: Chronic, permanent Continue Xarelto therapy Rate controlled. Code: Full Dispo: Admit to [facility] DVTP: Xarelto Total Time Total Time Spent Total Time Spent (In Minutes): 35 Total Time Includes: Examination of the Patient, Discharge Planning, Medication Reconciliation and Communication With Other Providers Discharge Plan Discharge Items Patient Disposition: Home - Self-Care Reason For Visit: NEAR SYNCOPE, DYSPNEA Discharge Diagnosis: Near Syncope, Pneumonia Activity: Resume your previous activity Non-emergency contact: Primary Care Provider Call non-emergency contact if: you have any medication questions and your symptoms worsen Follow-up/Referrals: Jeffery Daniel MD [Physician] - 08/30/19 11:00 am (Please, follow up at Dr. Jeffery Daniel's office with his associate, Roxanne Damico PA-C, on WednesdayAugust 30 at 11:00 am. *If you need to change this appointment, call the office at [phone].) Diet: Regular Addtl Attending Provider Instructions: There were signs of a pneumonia on your imaging with Minimal interstitial infiltrate left lung base on CXR; also on CT Chest with findings of Minimal interstitial infiltrative change left and to a lesser extent right base. You were started on an antibiotic to treat this called Azithromycin. This is a total treatment course of 5 days with a dose of 250mg. You were given one dose here, and we sent a prescription for the remainder, 4 days, take one pill = 250mg, for the next 4 days. The drug stays in your body for five additional days after last dose to give you a total treatment time of 10 days. Hopefully, treating this may help your symptoms. This prescription was sent electronically to your pharmacy and should be ready to pick pulling machine tender. We recommend staying well hydrated with clear fluids to help with your dizziness. Recommend drinking about 60 ounces of water per day. Also, you can use your urine as a tool for hydration. The darker your urine, the more dehydrated you are and the more you need to drink. Your urine should be clear when you urinate. This is an easy and inexpensive way to help with your dehydration. You can also try to keep a daily diary to record your fluid intake with return of any symptoms. Your swallowing study here was negative for aspiration. If you have return of symptoms that are concerning, call your Primary Care Physician's office or return to [facility] ED for evaluation or call 911 if you pass out/sustain injury. Please be careful going up/down steps. Take your time when going from sitting to standing or from laying down in bed to sitting to standing, to give your body time to compensate to send blood from your lower body to your brain to prevent possibly passing out. It was a pleasure taking care of you, I will make sure your Manager [employer] Database and Neurologist get copies of your discharge summary. Gentry Dey D.O. Pending Studies at Discharge: No Stand-Alone Forms: My [facility] Medications and DC Order Prescriptions: New azithromycin [Zithromax] 250 mg Tablet 250 mg PO QAM 4 Days Qty: 4 RF: 0 Continued pramipexole 3 mg tablet extended release 24 hr 3 mg PO HS Qty: 90 RF: 0 entacapone 200 mg tablet 200 mg PO TID Qty: 270 RF: 0 levothyroxine 25 mcg tablet 25 mcg PO QAM Qty: 90 RF: 0 rasagiline 1 mg tablet 1 mg PO QAM Qty: 90 RF: 0 naproxen sodium [Aleve] 220 mg Tablet 220 mg PO Q8H PRN (Reason: Pain) RF: 0 carbidopa-levodopa 25-250 mg tablet 1 tab PO TID RF: 0 ergocalciferol (vitamin D2) 50,000 unit capsule 50,000 units PO TU RF: 0 Xarelto 20 mg tablet 20 mg PO HS RF: 0 Discharge Orders: Discharge Order (Routine); Ordered 08/24/19 Ordered By: Reese Denson Admission Data Admit Date/Time: 08/23/19 20:38 Attending Provider: Preston Cortés Admit Provider: Maryann Verdugo Primary Care Provider: Gena Daniel I Other Providers: Lcuian Salas ; Valeria Durham ; Nikos Garsia Other Interventions: Discharge Summary Assessment (RN) Last Done: 08/24/19 16:06 Resident Activity Tracking Resident Involvement: Resident Care Provided Care Provided: Adult Hospital Medicine
--- NOTE | 2019-08-24 11:49 | Fluoroscopy Report ---
FL video swallow HISTORY: Aspiration r/o aspiration; Parkinson's disease TECHNIQUE: Video fluoroscopic evaluation of swallowing was performed in the AP and lateral projection s by the speech pathology staff. The patient is fed nectar-thick and thin liquid barium, a barium coa makeda wafer, and barium pudding. FLUOROSCOPY TIME: 1.3 minutes NUMBER OF FLUOROSCOPIC IMAGES: 467 COMPARISON STUDY: None. FINDINGS: There is normal hyoid excursion and epiglottic deflection. No significant penetration or as piration identified. Swallowing function is within normal limits. IMPRESSION: 1. No aspiration identified. 2. Please see the speech pathologist report for detailed findings and recommendations. The above report was generated using voice recognition software. It may contain grammatical, syntax or spelling errors. Electronically signed by: Jose Juan Lemus M.D. 08/24/2019 11:48 AM
[2019-08-24] MEDS: SODIUM CHLORIDE 0.9% 1000ML 1,000 ML IV SCH (12:00)
--- NOTE | 2019-08-24 15:23 | Neurology Consultation ---
Date of Consultation August 24, 2019 Assessment & Plan (1) Syncope: Efrem Perea is a 79 yo man w/ PMH of HTN, hypothyroidism, idiopathic polyneuropathy, Raynaud's phenomenon, Afib on xarelto, and Parkinson's disease whom neurology is consulted on to weigh in on possible dysautonomia. # Syncopal events in setting of Parkinson's disease: most likely multifactorial though believe that cardiac origin to be most likely given he reports events are only present with exertion and not just from sitting to standing (less likely pure dysautonomia from PD). He also noted that he has gone into RVR in the past and not felt any different, hence arrhythmia is still on the differential. Discussed with him wearing compression stockings and increased PO fluid intake to prevent orthostasis and continuining his workup with cardiology. - recommend keeping PD meds at their current doses (sinemet, entacapone, pramipexole, rasagiline) - could consider droxidopa or other medication for orthostatic hypotension if no cardiac cause identified, but will defer this to the outpatient setting when he sees Dr Correia again Thank you for this interesting consult. Please call or text with questions. (2) Parkinson's disease: History of Present Illness Attending Physician: Preston Cortés, History of Present Illness Efrem Perea is a 79 yo man w/ PMH of HTN, hypothyroidism, idiopathic polyneuropathy, Raynaud's phenomenon, Afib on xarelto, and Parkinson's disease whom neurology is consulted on to weigh in on possible dysautonomia. He follows with Dr Correia in outpatient neurology for his PD. He recently saw Dr Correia on 08/14/19 for his PD. At that time, he reported that he was doing well. He had minimal tremor and bradykinesia. He did report drooling that has been bothersome, occasional freezing episodes, wearing off phenomenon, Raynaud's and occasional lightheadedness without falls. No changes to medications were made at that time. He was seen in cardiology on 08/21/19 for a syncopal event that occurred on 08/18/19 when he was carrying [employer] decorations from his basement to his kitchen. He felt lightheaded and began to lower himself to the ground before passing out. No injuries and he quickly came to without any observed seizure activity. He reported recurrent lightheaded episodes in the setting of physical exertion. Of note, he had an echo in 2018 that was notable for EF 40-45%. He is also in chronic Afib. When in the ED for the above syncopal event, he was noted to be in Afib with rates in the 90s and to have hypotension (systolics in the 90s). CTH did not show any hemorrhage or new hypodensity. He reportedly noticed worsening of his presyncopal events after starting on amlodipine a few weeks ago for Raynaud's; norvasc was discontinued ~08/14 given this increase in lightheadedness. Cardiology recommended a 48 hr Holter monitor to r/o arrhythmia and repeat TTE. He was also advised to wear compression stockings and increased PO hydration. He re-presented to the ED on 08/23 for the same 08/18 episode, reporting ongoing generalized weakness. CXR showed questionable pneumonia. CTA chest showed no PE. He was started on antibiotics for possible pneumonia and admitted. He had repeat TTE performed that showed EF 50-55%, moderate LVH, severe biatrial dilation, moderate MR, moderate TR, mild pulmonary HTN, and mildly dilated RV. On examination this afternoon, he reports that he has only ever had 3 syncopal events, all in the setting of exertion. He denies having presyncope symptoms when going from sitting to standing, endorses only having them with exertion. He reports associated palpitations on some occurrences of symptoms but not consistently, and loss of vision with all episodes. He was not able to describe event further. Allergies Allergy/AdvReac Type Severity Reaction Status Date / Time No Known Drug Allergies Allergy Verified 08/23/19 16:49 Home Medications Home Medications Medication Instructions Recorded Confirmed Type pramipexole 3 mg tablet,extended 3 mg PO HS #90 tab 04/10/19 08/23/19 History release 24 hr levothyroxine 25 mcg tablet 25 mcg PO QAM #90 tab 05/02/19 08/23/19 History rasagiline 1 mg tablet 1 mg PO QAM #90 tab 05/02/19 08/23/19 History entacapone 200 mg tablet 200 mg PO TID #270 tab 06/29/19 08/23/19 History Xarelto 20 mg PO HS 08/18/19 08/23/19 History carbidopa-levodopa 1 tab PO TID 08/18/19 08/23/19 History ergocalciferol (vitamin D2) 50,000 units PO TU 08/18/19 08/23/19 History naproxen sodium [Aleve] 220 mg PO Q8H PRN 08/18/19 08/23/19 History azithromycin [Zithromax] 250 mg PO QAM 4 Days #4 tab 08/24/19 Rx Patient History Medical History Arthralgia of multiple joints (Acute) Atrial fibrillation (Chronic) BPH (benign prostatic hyperplasia) (Acute) Dyspnea on exertion (Acute) Elevated PSA (Chronic) Hypertension (Chronic) Hypothyroidism, adult (Chronic) Idiopathic polyneuropathy (Acute) Lymphedema (Acute) Moderate mitral regurgitation (Acute) Moderate tricuspid regurgitation (Acute) Parkinson's disease (Chronic) Peripheral edema (Acute) Raynaud's disease (Acute) Splenomegaly (Acute) Venous insufficiency (chronic) (peripheral) (Acute) Visual hallucination (Acute) Vitamin D deficiency (Acute) Family History Unknown Myocardial infarction Father Cardiac disorder Mother Colon cancer Social History Preferred Language: Montenegrin Communication Ability: Effective Protein Specialist Required: No Beliefs That Will Affect Care: None marital status: Current Living Situation: Spouse current occupational status: retired Feels Safe at Home: Yes Smoking Status: Never smoker Second Hand Exposure: No ; Hx Alcohol Use: Yes Alcohol type: beer Hx Substance Use: No Review of Systems Review of Systems: 14 point review of systems completed and negative except as in HPI. Physical Exam Physical Exam: General Exam: GEN: NAD, sitting in chair. HEENT: No conjunctival injection, no rhinorrhea. CV: RRR, no peripheral edema PULM: Nonlabored respirations on room air. Neuro Exam: MS: Awake and Alert. Oriented to person, place, and date. Speech fluent and appropriate, mild dysarthria, no paraphasic errors. Language intact including naming, comprehension, repetition. Cognition and memory grossly intact. Attention intact. No neglect. CN: Visual mccurdy full. No extinction to double simultaneous stimuli. Unable to visualize fundi on fundoscopic exam. PERRLA OU. EOMI without nystagmus. Facial sensation intact to LT. Facial muscles full and symmetric. Hearing intact to conversation. Uvula midline with symmetric palatal elevation. Shoulder shrug normal. Tongue midline. Minimal hypomimia. MOTOR: Normal bulk and tone. No pronator drift. BUE strength 5/5 at deltoids, biceps, triceps, wrist flexors and extensors, and hand grasp bilaterally. BLE strength 5/5 at iliopsoas, hamstrings, quadriceps, tibialis anterior, and gastrocnemius bilaterally. Mild right handed resting tremor. REFLEXES: 1+ at biceps, triceps, brachioradialis, trace patella and absent Achilles bilaterally. Toes mute bilaterally. SENSORY: Intact to LT without extinction to double simultaneous stimuli. Vibration and temperature intact throughout. COORDINATION: No dysmetria or ataxia on [id number] and [id number] bilaterally. Normal Andrew bilaterally. GAIT: Slightly stooped gait with normal arm swing. Normal Romberg. Results & Data Vital Signs (Past 12 Hours) Vital Signs Temp Pulse Resp BP Pulse Ox 08/24/19 15:11 36.7 C 87 16 113/74 97 08/24/19 07:37 36.6 C 67 16 145/98 H 94 PG Care Time/CCT Total # of Minutes Spent Total Time Spent with Patient: Total time spent is greater than 50% in coordination of care (as documented) at patient's floor/unit and/or counseling patient: (1) Syncope Syncope type: unspecified Qualified Code(s): R55 - Syncope and collapse
[2019-08-24] MEDS: RIVAROXABAN 20 MG TAB PO SCH (18:02)
--- NOTE | 2019-08-24 18:06 | Billing Data ---
Date of Service August 24, 2019 Coding Level of Care Code D/C Day Management <30 mins
--- NOTE | 2019-08-25 08:01 | Cardiology Consultation ---
Date of Consultation August 24, 2019 Assessment & Plan (1) Near syncope: The etiology of the patient's symptoms are unclear. The fact that there exertional is curious. Curiously, he has not been on telemetry recently to see if he has some associated bradycardia or high rates. I think the best evaluation could be performed with ambulation or exercise testing since this seems to trigger his symptoms. His possible that he has chronotropic incompetence or possibly even rapid ventricular rates contributing to his symptoms. There is also some concern regarding autonomic dysfunction in the setting of parkinsonism. I would recommend ambulation or exercise testing in order to evaluate his symptoms. This needs to be performed on telemetry or monitoring. (2) Atrial fibrillation: Permanent. Not currently on telemetry. On appropriate anticoagulation. History of Present Illness Reason for Consultation: syncope Requesting Physician: Jarett Attending Physician: Preston Cortés DO History of Present Illness This is a late entry for consult performed on 08/24/2019. The patient is a 79-year-old gentleman with a history of permanent atrial fibrillation and prior history of reduced LV systolic function who has been e xperiencing symptoms of exertional intolerance, dizziness and syncope. Patient was evaluated in the outpatient setting on 08/21/2019. At that time he did report syncopal episode associated with exertion. More recently she has been experiencing symptoms of presyncope with activity such as at ascending stairs. At rest he feels generally well. His symptoms are not exclusively related to changes in position such as getting up from I seated position. He has not been aware of significant palpitations. He denies any associated chest pain. Does have some element of mild dyspnea with activity. Allergies Allergy/AdvReac Type Severity Reaction Status Date / Time No Known Drug Allergies Allergy Verified 08/23/19 16:49 Home Medications Home Medications Medication Instructions Recorded Confirmed Type pramipexole 3 mg tablet,extended 3 mg PO HS #90 tab 04/10/19 08/23/19 History release 24 hr levothyroxine 25 mcg tablet 25 mcg PO QAM #90 tab 05/02/19 08/23/19 History rasagiline 1 mg tablet 1 mg PO QAM #90 tab 05/02/19 08/23/19 History entacapone 200 mg tablet 200 mg PO TID #270 tab 06/29/19 08/23/19 History Xarelto 20 mg PO HS 08/18/19 08/23/19 History carbidopa-levodopa 1 tab PO TID 08/18/19 08/23/19 History ergocalciferol (vitamin D2) 50,000 units PO TU 08/18/19 08/23/19 History naproxen sodium [Aleve] 220 mg PO Q8H PRN 08/18/19 08/23/19 History Patient History Medical History Arthralgia of multiple joints (Acute) Atrial fibrillation (Chronic) BPH (benign prostatic hyperplasia) (Acute) Dyspnea on exertion (Acute) Elevated PSA (Chronic) Hypertension (Chronic) Hypothyroidism, adult (Chronic) Idiopathic polyneuropathy (Acute) Lymphedema (Acute) Moderate mitral regurgitation (Acute) Moderate tricuspid regurgitation (Acute) Parkinson's disease (Chronic) Peripheral edema (Acute) Raynaud's disease (Acute) Splenomegaly (Acute) Venous insufficiency (chronic) (peripheral) (Acute) Visual hallucination (Acute) Vitamin D deficiency (Acute) Family History Unknown Myocardial infarction Father Cardiac disorder Mother Colon cancer Social History Preferred Language: Malaysian Communication Ability: Effective Medical Record Specialist Required: No Beliefs That Will Affect Care: None marital status: Current Living Situation: Spouse current occupational status: retired Feels Safe at Home: Yes Smoking Status: Never smoker Second Hand Exposure: No ; Hx Alcohol Use: Yes Alcohol type: beer Hx Substance Use: No Review of Systems Review of Systems: All systems reviewed & are unremarkable except as noted in HPI & below Physical Exam Physical Exam: Repeat BP is 164/100 left arm sitting, no decrease with standing. GENERAL: Patient in no acute distress. HEENT: Head is atraumatic, normocephalic. EOM's intact. Facies symmetric. No perioral cyanosis. NECK: No JVD. JVP is at the level of the clavicle sitting upright. Carotid upstrokes are + 2 bilaterally. No bruits are noted. CHEST/LUNGS: Clear to auscultation throughout all lung mccurdy. No wheezes, rales, or crackles. CVS: S1 and S2 are irregularly irregular with an apical rate of 84 bpm and a grade 1/6 apical holosystolic murmur. No obvious diastolic murmurs, gallops, or rubs. PMI is nondisplaced. No lifts, heaves, or thrills. No abdominal aortic or renal bruits. ABDOMINAL EXAM: Bowel sounds are present. No masses, organomegaly, or tenderness. EXTREMITIES: No clubbing or cyanosis. +1 Pretibial edema bilaterally. Intact radial pulses bilaterally. NEUROLOGIC EXAM: Patient is awake, alert, and oriented. Pleasant and cooperative. Answers questions appropriately. Mild resting tremor noted. Generalized bradykinesis. Results & Data Diagnostic Findings Echocardiogram performed 08/24/2019 revealed normal LV systolic function. No regional wall motion abnormalities. Moderate concentric LVH. Severe biatrial dilation. Moderate mitral regurgitation. Mild pulmonary hypertension. ECG Additional Comments: EKG obtained at the time admission revealed atrial fibrillation with controlled ventricular rate PG Care Time/CCT Total # of Minutes Spent Total Time Spent with Patient: Total time spent is greater than 50% in coordination of care (as documented) at patient's floor/unit and/or counseling patient: (1) Atrial fibrillation Atrial fibrillation type: permanent Qualified Code(s): I48.2 - Chronic atrial fibrillation
[2019-08-25] MEDS ORDERED: AZITHROMYCIN 250 MG TAB PO SCH (09:00)
--- NOTE | 2019-08-26 05:29 | Billing Data ---
Date of Service August 26, 2019 Coding Level of Care Code 44852 Initial Inpt Care Lvl 3
== END 2019-08-24 18:05 | disposition home or self-care (01) | DRG 300 ==
LOC: ED 14:44 → SUATTDRO 20:38 → 2N 20:38

== ENCOUNTER 2020-03-05 20:39 | Inpatient (IN) ==
[2020-03-05] MEDS: SODIUM CHLORIDE 0.9% 1000ML 1,000 ML IV SCH (23:42)
[2020-03-05 23:50] LABS: Basophils # (auto) 0.01 K/uL (0-0.2); Basophils % (auto) 0.1 %; Eosinophils # (auto) 0.11 K/uL (0-0.5); Hematocrit (blood only) 42.8 % (42-52); Immature Granulocytes # (auto) 0.01 K/uL (0.00-0.02); Immature Granulocytes % (auto) 0.1 %; Lymphocytes # (auto) 1.46 K/uL (1.2-3.4); Lymphocytes % (auto) 12.6 %; Mean Corpuscular Hemoglobin 30.8 pg (25-34); Mean Corpuscular Hgb Conc 32.7 g/dL (32-36); Mean Corpuscular Volume 94.3 fL (80-100); Mean Platelet Volume 10.5 fL (7.4-10.4); Monocytes # (auto) 0.67 K/uL (0.11-0.59); Monocytes % (auto) 5.8 %; Neutrophils # (auto) 9.29 K/uL (1.4-6.5); Neutrophils % (auto) 80.4 %; Platelet Count 160 K/uL (130-400); RDW Coefficient of Variation 14.5 % (11.5-14.5); RDW Standard Deviation 50.1 fL (36.4-46.3); Red Blood Count 4.54 M/uL (4.7-6.1); White Blood Count 11.55 K/uL (4.8-10.8)
[2020-03-06 00:08] LABS: Alanine Aminotransferase 12 U/L (12-78); Aspartate Aminotransferase 12 U/L (15-37); BUN Creatinine Ratio 26.8 (10-20); Blood Urea Nitrogen 36 mg/dl (7-18); Calcium 8.3 mg/dl (8.5-10.1); Carbon Dioxide 30 mmol/L (21-32); Chloride 107 mmol/L (98-107); Est GFR (African American) 59.3; Est GFR (Non-African American) 51.2; Glucose 99 mg/dl (70-99); Sodium 142 mmol/L (136-145)
[2020-03-06 00:13] LABS: Albumin Globulin Ratio 0.9 (0.9-2); Alkaline Phosphatase 140 U/L (45-117); Creatine Kinase 100 U/L (39-308); Globulin 3.4 gm/dl (2.5-4.0); Total Protein 6.4 gm/dl (6.4-8.2); Troponin I < 0.015 ng/ml (0-0.045)
[2020-03-06 00:17] LABS: Appearance Urine Clear (Clear); Bilirubin Urine Negative (Negative); Blood Urine Negative (Negative); Color Urine Dark Yellow; Glucose Urine UA Negative (Negative); Ketones Urine Trace (Negative); Leukocyte Esterase Urine Negative (Negative); Nitrite Urine Negative (Negative); Protein Urine 1+ (Negative); RBC Urine Automated 0-4 /hpf (0-4); Specific Gravity Urine 1.027 (1.000-1.030); Urobilinogen Urine Negative (Negative)
[2020-03-06 00:33] LABS: Cast Urine Automated >30 /lpf (0-5); Mucus Urine Present (None Prsent)
[2020-03-06 00:35] LABS: Bacteria Urine Automated 1+ (Negative)
--- NOTE | 2020-03-06 02:20 | Emergency Department Note ---
History of Present Illness General Chief complaint: Weakness Stated complaint: WEAK,FAINT,SOB Source: patient Mode of arrival: ambulatory Limitations: no limitations History of Present Illness Provider complaint: Recurrent near syncopal episodes This patient is a 79-year-old male who presents to the emergency department with complaints of recurrent near syncopal events. Patient states this has been going on for several weeks to months. He has been evaluated by cardiology and does suffer from Parkinson's disease. The patient follows with Dr. Correia. Patient states he was in [place], [place] at their summer home. He had significant weakness and recurrent near syncope/falls and presented to the emergency department. Patient states he was there for "most of the day" and did receive IV hydration. He states he does not believe anything else was found. Patient has a history of atrial fibrillation and is on chronic anticoagulation. He does not believe he had a recent head CT. He currently denies any fevers, chills, chest pain or shortness of breath. He states this is "not orthostasis." Home Medications Home Medications Medication Instructions Recorded Confirmed Type pramipexole 3 mg tablet,extended 3 mg PO HS #90 tab 09/04/19 03/06/20 Rx release 24 hr rasagiline 1 mg tablet 1 mg PO DAILY #90 tab 09/04/19 03/06/20 Rx entacapone 200 mg tablet 200 mg PO Q8H #270 tab 10/25/19 03/06/20 Rx digoxin 125 mcg (0.125 mg) tablet 125 mcg PO DAILY #90 tab 11/15/19 03/06/20 Rx levothyroxine 25 mcg tablet 25 mcg PO QAM #90 tab 01/30/20 03/06/20 Rx rivaroxaban 20 mg tablet 20 mg PO HS #90 tab 02/13/20 03/06/20 Rx sertraline 50 mg tablet 50 mg PO DAILY #30 tab 02/13/20 03/06/20 Rx atenolol 25 mg PO HS 03/06/20 03/06/20 History carbidopa-levodopa 1 tab PO QID 03/06/20 03/06/20 History cholecalciferol (vitamin D3) 50 mcg PO DAILY 03/06/20 03/06/20 History [Vitamin D3] Allergies Allergy/AdvReac Type Severity Reaction Status Date / Time No Known Allergies Allergy Verified 03/06/20 00:17 Past Med/Surg History Medical History (Updated 03/07/20 @ 21:43 by Britney Estrada MD) Arthralgia of multiple joints (Acute) Atrial fibrillation (Chronic) BPH (benign prostatic hyperplasia) (Acute) Delusion Dyspnea on exertion (Acute) Elevated PSA (Chronic) Hypertension (Chronic) Hypothyroidism, adult (Chronic) Idiopathic polyneuropathy (Acute) Lymphedema (Acute) Moderate mitral regurgitation (Acute) Moderate tricuspid regurgitation (Acute) Near syncope Parkinson's disease (Chronic) Parkinson's disease dementia Peripheral edema (Acute) Pneumonia (Inactive) Pseudobulbar affect Rapid atrial fibrillation (Resolved) Raynaud's disease (Acute) Septic bursitis of elbow Splenomegaly (Acute) Syncope (Inactive) Venous insufficiency (chronic) (peripheral) (Acute) Visual hallucination (Acute) Vitamin D deficiency (Acute) Surgical History H/O inguinal hernia repair History of surgical removal of skin lesion 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 S/P tonsillectomy and adenoidectomy Family History Unknown Myocardial infarction Father Cardiac disorder Mother Colon cancer Denies family history of Ovarian cancer Prostate cancer Breast cancer Social History Preferred Language: [place] Communication Ability: Effective 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 and A total of 10 systems reviewed and were otherwise negative Physical Exam Vital Signs Vital Signs - 24 hr 03/06/20 22:09 03/06/20 23:46 03/07/20 03:57 Temperature 36.8 C 36.6 C Temperature Source Oral Oral Pulse Rate [Left Finger] 76 79 Respiratory Rate 18 17 Respiratory Effort / Characteristics Non-Labored Spontaneous Respiratory Depth Normal Respiratory Pattern Regular Blood Pressure [Left Arm] 147/102 H 110/72 Blood Pressure [Right Arm] Blood Pressure Mean [Left Arm] 117 84 Blood Pressure Mean [Right Arm] Blood Pressure Position [Left Arm] Sitting Lying Blood Pressure Position [Right Arm] Pulse Oximetry 98 97 Oxygen Delivery Method Room Air Room Air Room Air 03/07/20 07:15 03/07/20 10:00 03/07/20 10:58 Temperature 36.5 C 36.6 C Temperature Source Oral Oral Pulse Rate [Left Finger] 79 80 Respiratory Rate 20 20 Respiratory Effort / Characteristics Non-Labored Respiratory Depth Normal Respiratory Pattern Regular Blood Pressure [Left Arm] Blood Pressure [Right Arm] 130/85 157/82 H Blood Pressure Mean [Left Arm] Blood Pressure Mean [Right Arm] 100 107 Blood Pressure Position [Left Arm] Blood Pressure Position [Right Arm] Lying Pulse Oximetry 98 91 Oxygen Delivery Method Room Air Room Air 03/07/20 15:04 Temperature 36.9 C Temperature Source Oral Pulse Rate [Left Finger] 82 Respiratory Rate 20 Respiratory Effort / Characteristics Respiratory Depth Respiratory Pattern Blood Pressure [Left Arm] Blood Pressure [Right Arm] 166/97 H Blood Pressure Mean [Left Arm] Blood Pressure Mean [Right Arm] 120 Blood Pressure Position [Left Arm] Blood Pressure Position [Right Arm] Pulse Oximetry 94 Oxygen Delivery Method Course Administered Medications Amiodarone HCl (Cordarone) 400 mg PO BIDM [facility] Stop: 04/06/20 07:59 Last Admin: 03/07/20 16:37 Dose: 400 mg Documented by: [id number] Admin: 03/07/20 08:33 Dose: 400 mg Documented by: [id number] Carbidopa/Levodopa (Sinemet 25/250mg) 1 tab PO QID [facility] Stop: 04/05/20 08:59 Last Admin: 03/07/20 21:18 Dose: 1 tab Documented by: [id number] Admin: 03/07/20 16:37 Dose: 1 tab Documented by: [id number] Admin: 03/07/20 14:21 Dose: 1 tab Documented by: [id number] Admin: 03/07/20 08:34 Dose: 1 tab Documented by: [id number] Admin: 03/06/20 21:56 Dose: 1 tab Documented by: [id number] Admin: 03/06/20 17:16 Dose: 1 tab Documented by: [id number] Admin: 03/06/20 13:22 Dose: 1 tab Documented by: [id number] Admin: 03/06/20 08:35 Dose: 1 tab Documented by: [id number] Entacapone (Comtan) 200 mg PO Q8 [facility] Stop: 04/05/20 07:59 Last Admin: 03/07/20 21:18 Dose: 200 mg Documented by: [id number] Admin: 03/07/20 14:21 Dose: 200 mg Documented by: [id number] Admin: 03/07/20 06:38 Dose: 200 mg Documented by: [id number] Admin: 03/06/20 21:56 Dose: 200 mg Documented by: [id number] Admin: 03/06/20 13:22 Dose: 200 mg Documented by: [id number] Admin: 03/06/20 08:34 Dose: 200 mg Documented by: [id number] Sodium Chloride (Nss 1000ml) 1,000 mls @ 125 mls/hr IV .Q8H [facility] Stop: 04/04/20 22:44 Last Admin: 03/07/20 14:42 Dose: 125 mls/hr Documented by: [id number] Infusion: 03/07/20 14:39 Dose: 125 mls/hr Documented by: [id number] Admin: 03/07/20 06:39 Dose: 125 mls/hr Documented by: [id number] Infusion: 03/07/20 06:39 Dose: 125 mls/hr Documented by: [id number] Admin: 03/07/20 00:23 Dose: 125 mls/hr Documented by: [id number] Infusion: 03/07/20 00:23 Dose: 125 mls/hr Documented by: [id number] Admin: 03/06/20 16:26 Dose: 125 mls/hr Documented by: [id number] Infusion: 03/06/20 16:26 Dose: 0 mls/hr Documented by: [id number] Admin: 03/06/20 08:33 Dose: 125 mls/hr Documented by: [id number] Infusion: 03/06/20 07:42 Dose: 125 mls/hr Documented by: [id number] Admin: 03/05/20 23:42 Dose: 125 mls/hr Documented by: [id number] Ceftriaxone Sodium 2,000 mg/ (Dextrose) 70 mls @ 100 mls/hr IV DAILY@1600 [facility]; Protocol Stop: 03/13/20 15:59 Last Infusion: 03/07/20 17:17 Dose: 0 mls/hr Documented by: [id number] Admin: 03/07/20 16:35 Dose: 100 mls/hr Documented by: [id number] Infusion: 03/06/20 17:15 Dose: 0 mls/hr Documented by: [id number] Admin: 03/06/20 16:23 Dose: 100 mls/hr Documented by: [id number] Levothyroxine Sodium (Synthroid) 25 mcg PO DAILYBB [facility] Stop: 04/05/20 06:44 Last Admin: 03/07/20 06:38 Dose: 25 mcg Documented by: [id number] Admin: 03/06/20 08:33 Dose: 25 mcg Documented by: [id number] Miscellaneous (Order Awaiting Action) 1 ea N/A QS [facility] Stop: 04/05/20 07:59 Last Admin: 03/07/20 16:31 Dose: Not Given Documented by: [id number] Admin: 03/07/20 08:34 Dose: Not Given Documented by: [id number] Admin: 03/06/20 20:51 Dose: Not Given Documented by: [id number] Admin: 03/06/20 16:32 Dose: Not Given Documented by: [id number] Admin: 03/06/20 08:36 Dose: Not Given Documented by: [id number] Pramipexole Dihydrochloride (Mirapex) 3 mg PO [facility] Stop: 04/05/20 20:59 Last Admin: 03/07/20 21:18 Dose: 3 mg Documented by: [id number] Admin: 03/06/20 23:03 Dose: 3 mg Documented by: [id number] Rivaroxaban (Xarelto) 20 mg PO QDD [facility] Stop: 04/05/20 16:29 Last Admin: 03/07/20 16:37 Dose: 20 mg Documented by: [id number] Admin: 03/06/20 16:23 Dose: 20 mg Documented by: [id number] Vitamin D (Vitamin D3) 2,000 units PO DAILY [facility] Stop: 04/05/20 08:59 Last Admin: 03/07/20 08:33 Dose: 2,000 units Documented by: [id number] Admin: 03/06/20 08:35 Dose: 2,000 units Documented by: [id number] Discontinued Medications Amiodarone HCl (Cordarone) 400 mg PO NOW ONE Stop: 03/06/20 18:18 Last Admin: 03/06/20 19:20 Dose: 400 mg Documented by: [id number] Digoxin (Lanoxin) 0.125 mg PO DAILY@1600 [facility] Stop: 04/05/20 15:59 Last Admin: 03/06/20 16:00 Dose: Not Given Documented by: [id number] Piperacillin Sod/Tazobactam (Sod 3.375 gm/ Dextrose) 100 ml in 115 mls @ 230 mls/hr IV ONE ONE Stop: 03/06/20 07:59 Last Infusion: 03/06/20 09:09 Dose: 0 mls/hr Documented by: [id number] Admin: 03/06/20 08:39 Dose: 230 mls/hr Documented by: [id number] Lactated Ringer's (Lr) 1,000 mls @ 125 mls/hr IV .Q8H [facility] Stop: 03/06/20 22:34 Last Admin: 03/06/20 15:12 Dose: Not Given Documented by: [id number] Vancomycin HCl 2,000 mg/ (Sodium Chloride) 540 mls @ 200 mls/hr IV ONE ONE Stop: 03/06/20 10:11 Last Infusion: 03/06/20 11:15 Dose: 0 mls/hr Documented by: [id number] Admin: 03/06/20 08:33 Dose: 200 mls/hr Documented by: [id number] Potassium Phosphate 21 mmol/ (Sodium Chloride) 507 mls @ 88 mls/hr IV ONE ONE Stop: 03/06/20 17:30 Last Infusion: 03/06/20 20:12 Dose: 0 mls/hr Documented by: [id number] Infusion: 03/06/20 17:15 Dose: 88 mls/hr Documented by: [id number] Infusion: 03/06/20 16:25 Dose: 0 mls/hr Documented by: [id number] Admin: 03/06/20 11:45 Dose: 88 mls/hr Documented by: [id number] Pramipexole Dihydrochloride (Mirapex) 3 mg PO HS [facility] Stop: 04/05/20 20:59 Last Admin: 03/06/20 22:57 Dose: Not Given Documented by: [id number] Medical Decision Making Differential Diagnosis Differential includes Parkinson's decline, medication adverse effect, acute coronary syndrome, myocardial infarction, CVA, TIA, anemia, infection, pneumonia, UTI, pyelonephritis, poor nutrition, dehydration, electrolyte disturbance,hypoglycemia. Medical Records Attestation: I reviewed the patient's medical records. Home Medications Current Medication List: was personally reviewed by me Laboratory Data Attestation: I reviewed the patient's lab results. Result diagrams: 03/07/20 06:24 03/07/20 06:24 Lab Results 03/05/20 03/05/20 03/05/20 Range/Units 23:40 23:40 23:40 WBC 11.55 H (4.8-10.8) K/uL RBC 4.54 L (4.7-6.1) M/uL Hgb 14.0 (14.0-18.0) g/dL Hct 42.8 (42-52) % MCV 94.3 (80-100) fL MCH 30.8 (25-34) pg MCHC 32.7 (32-36) g/dL RDW Std Deviation 50.1 H (36.4-46.3) fL RDW Coeff of Marcia 14.5 (11.5-14.5) % Plt Count 160 (130-400) K/uL MPV 10.5 H (7.4-10.4) fL Immature Gran % (Auto) 0.1 % Neut % (Auto) 80.4 % Lymph % (Auto) 12.6 % Towns % (Auto) 5.8 % Eos % (Auto) 1.0 % Baso % (Auto) 0.1 % Neut # (Auto) 9.29 H (1.4-6.5) K/uL Lymph # (Auto) 1.46 (1.2-3.4) K/uL Towns # (Auto) 0.67 H (0.11-0.59) K/uL Eos # (Auto) 0.11 (0-0.5) K/uL Baso # (Auto) 0.01 (0-0.2) K/uL Immature Gran # (Auto) 0.01 (0.00-0.02) K/uL Sodium 142 (136-145) mmol/L Potassium 4.0 (3.5-5.1) mmol/L Chloride 107 (98-107) mmol/L Carbon Dioxide 30 (21-32) mmol/L Anion Gap 5.0 (3-11) BUN 36 H (7-18) mg/dl Creatinine 1.33 (0.6-1.4) mg/dl Est Cr Clr Drug Dosing Not Reportable Est GFR ( Amer) 59.3 Est GFR (Non-Af Amer) 51.2 BUN/Creatinine Ratio 26.8 H (10-20) Glucose 99 (70-99) mg/dl POC Glucose (70-99) mg/dl Calcium 8.3 L (8.5-10.1) mg/dl Phosphorus (2.5-4.9) mg/dl Magnesium (1.8-2.4) mg/dl Total Bilirubin 1.0 (0.2-1) mg/dl AST 12 L (15-37) U/L ALT 12 (12-78) U/L Alkaline Phosphatase 140 H (45-117) U/L Total Creatine Kinase 100 (39-308) U/L Troponin I < 0.015 (0-0.045) ng/ml Total Protein 6.4 (6.4-8.2) gm/dl Albumin 3.0 L (3.4-5.0) gm/dl Globulin 3.4 (2.5-4.0) gm/dl Albumin/Globulin Ratio 0.9 (0.9-2) Urine Color Dark Yellow Urine Appearance Clear (Clear) Urine pH 5.0 (4.5-7.5) Ur Specific [place] 1.027 (1.000-1.030) Urine Protein 1+ H (Negative) Urine Glucose (UA) Negative (Negative) Urine Ketones Trace H (Negative) Urine Blood Negative (Negative) Urine Nitrite Negative (Negative) Urine Bilirubin Negative (Negative) Urine Urobilinogen Negative (Negative) Ur Leukocyte Esterase Negative (Negative) Urine WBC (Auto) 1-5 (0-5) /hpf Urine RBC (Auto) 0-4 (0-4) /hpf U Hyaline Cast (Auto) >30 H (0-5) /lpf U Epithel Cells (Auto) 10-20 H (0-5) /lpf Urine Bacteria (Auto) 1+ H (Negative) Urine Mucus Present A (None Prsent) Digoxin (0.8-2.0) ng/ml 03/05/20 03/06/20 03/06/20 Range/Units 23:48 10:38 10:38 WBC (4.8-10.8) K/uL RBC (4.7-6.1) M/uL Hgb (14.0-18.0) g/dL Hct (42-52) % MCV (80-100) fL MCH (25-34) pg MCHC (32-36) g/dL RDW Std Deviation (36.4-46.3) fL RDW Coeff of Marcia (11.5-14.5) % Plt Count (130-400) K/uL MPV (7.4-10.4) fL Immature Gran % (Auto) % Neut % (Auto) % Lymph % (Auto) % Towns % (Auto) % Eos % (Auto) % Baso % (Auto) % Neut # (Auto) (1.4-6.5) K/uL Lymph # (Auto) (1.2-3.4) K/uL Towns # (Auto) (0.11-0.59) K/uL Eos # (Auto) (0-0.5) K/uL Baso # (Auto) (0-0.2) K/uL Immature Gran # (Auto) (0.00-0.02) K/uL Sodium 141 (136-145) mmol/L Potassium 4.6 (3.5-5.1) mmol/L Chloride 109 H (98-107) mmol/L Carbon Dioxide 30 (21-32) mmol/L Anion Gap 2.0 L (3-11) BUN 28 H (7-18) mg/dl Creatinine 1.09 (0.6-1.4) mg/dl Est Cr Clr Drug Dosing 62.3 Est GFR ( Amer) 75.5 Est GFR (Non-Af Amer) 65.1 BUN/Creatinine Ratio 25.5 H (10-20) Glucose 79 (70-99) mg/dl POC Glucose 121 H (70-99) mg/dl Calcium 8.6 (8.5-10.1) mg/dl Phosphorus 1.9 L (2.5-4.9) mg/dl Magnesium 2.1 (1.8-2.4) mg/dl Total Bilirubin (0.2-1) mg/dl AST (15-37) U/L ALT (12-78) U/L Alkaline Phosphatase (45-117) U/L Total Creatine Kinase (39-308) U/L Troponin I (0-0.045) ng/ml Total Protein (6.4-8.2) gm/dl Albumin (3.4-5.0) gm/dl Globulin (2.5-4.0) gm/dl Albumin/Globulin Ratio (0.9-2) Urine Color Urine Appearance (Clear) Urine pH (4.5-7.5) Ur Specific [place] (1.000-1.030) Urine Protein (Negative) Urine Glucose (UA) (Negative) Urine Ketones (Negative) Urine Blood (Negative) Urine Nitrite (Negative) Urine Bilirubin (Negative) Urine Urobilinogen (Negative) Ur Leukocyte Esterase (Negative) Urine WBC (Auto) (0-5) /hpf Urine RBC (Auto) (0-4) /hpf U Hyaline Cast (Auto) (0-5) /lpf U Epithel Cells (Auto) (0-5) /lpf Urine Bacteria (Auto) (Negative) Urine Mucus (None Prsent) Digoxin 0.5 L (0.8-2.0) ng/ml 03/06/20 03/06/20 03/07/20 Range/Units 10:38 10:38 06:24 WBC 10.00 7.55 (4.8-10.8) K/uL RBC 4.96 4.17 L (4.7-6.1) M/uL Hgb 15.5 12.8 L (14.0-18.0) g/dL Hct 47.2 39.3 L (42-52) % MCV 95.2 94.2 (80-100) fL MCH 31.3 30.7 (25-34) pg MCHC 32.8 32.6 (32-36) g/dL RDW Std Deviation 50.4 H 49.2 H (36.4-46.3) fL RDW Coeff of Marcia 14.4 14.4 (11.5-14.5) % Plt Count 161 133 (130-400) K/uL MPV 10.5 H 10.4 (7.4-10.4) fL Immature Gran % (Auto) 0.3 0.1 % Neut % (Auto) 82.3 75.4 % Lymph % (Auto) 10.3 16.0 % Towns % (Auto) 5.9 6.4 % Eos % (Auto) 1.0 2.0 % Baso % (Auto) 0.2 0.1 % Neut # (Auto) 8.23 H 5.69 (1.4-6.5) K/uL Lymph # (Auto) 1.03 L 1.21 (1.2-3.4) K/uL Towns # (Auto) 0.59 0.48 (0.11-0.59) K/uL Eos # (Auto) 0.10 0.15 (0-0.5) K/uL Baso # (Auto) 0.02 0.01 (0-0.2) K/uL Immature Gran # (Auto) 0.03 H 0.01 (0.00-0.02) K/uL Sodium (136-145) mmol/L Potassium (3.5-5.1) mmol/L Chloride (98-107) mmol/L Carbon Dioxide (21-32) mmol/L Anion Gap (3-11) BUN (7-18) mg/dl Creatinine (0.6-1.4) mg/dl Est Cr Clr Drug Dosing Est GFR ( Amer) Est GFR (Non-Af Amer) BUN/Creatinine Ratio (10-20) Glucose (70-99) mg/dl POC Glucose (70-99) mg/dl Calcium (8.5-10.1) mg/dl Phosphorus Cancelled (2.5-4.9) mg/dl Magnesium Cancelled (1.8-2.4) mg/dl Total Bilirubin (0.2-1) mg/dl AST (15-37) U/L ALT (12-78) U/L Alkaline Phosphatase (45-117) U/L Total Creatine Kinase (39-308) U/L Troponin I (0-0.045) ng/ml Total Protein (6.4-8.2) gm/dl Albumin (3.4-5.0) gm/dl Globulin (2.5-4.0) gm/dl Albumin/Globulin Ratio (0.9-2) Urine Color Urine Appearance (Clear) Urine pH (4.5-7.5) Ur Specific [place] (1.000-1.030) Urine Protein (Negative) Urine Glucose (UA) (Negative) Urine Ketones (Negative) Urine Blood (Negative) Urine Nitrite (Negative) Urine Bilirubin (Negative) Urine Urobilinogen (Negative) Ur Leukocyte Esterase (Negative) Urine WBC (Auto) (0-5) /hpf Urine RBC (Auto) (0-4) /hpf U Hyaline Cast (Auto) (0-5) /lpf U Epithel Cells (Auto) (0-5) /lpf Urine Bacteria (Auto) (Negative) Urine Mucus (None Prsent) Digoxin (0.8-2.0) ng/ml 03/07/ Range/Units 06:24 WBC (4.8-10.8) K/uL RBC (4.7-6.1) M/uL Hgb (14.0-18.0) g/dL Hct (42-52) % MCV (80-100) fL MCH (25-34) pg MCHC (32-36) g/dL RDW Std Deviation (36.4-46.3) fL RDW Coeff of Marcia (11.5-14.5) % Plt Count (130-400) K/uL MPV (7.4-10.4) fL Immature Gran % (Auto) % Neut % (Auto) % Lymph % (Auto) % Towns % (Auto) % Eos % (Auto) % Baso % (Auto) % Neut # (Auto) (1.4-6.5) K/uL Lymph # (Auto) (1.2-3.4) K/uL Towns # (Auto) (0.11-0.59) K/uL Eos # (Auto) (0-0.5) K/uL Baso # (Auto) (0-0.2) K/uL Immature Gran # (Auto) (0.00-0.02) K/uL Sodium 142 (136-145) mmol/L Potassium 4.4 (3.5-5.1) mmol/L Chloride 111 H (98-107) mmol/L Carbon Dioxide 29 (21-32) mmol/L Anion Gap 2.0 L (3-11) BUN 24 H (7-18) mg/dl Creatinine 0.98 (0.6-1.4) mg/dl Est Cr Clr Drug Dosing 69.3 Est GFR ( Amer) 85.8 Est GFR (Non-Af Amer) 74.1 BUN/Creatinine Ratio 24.8 H (10-20) Glucose 86 (70-99) mg/dl POC Glucose (70-99) mg/dl Calcium 8.0 L (8.5-10.1) mg/dl Phosphorus (2.5-4.9) mg/dl Magnesium (1.8-2.4) mg/dl Total Bilirubin (0.2-1) mg/dl AST (15-37) U/L ALT (12-78) U/L Alkaline Phosphatase (45-117) U/L Total Creatine Kinase (39-308) U/L Troponin I (0-0.045) ng/ml Total Protein (6.4-8.2) gm/dl Albumin (3.4-5.0) gm/dl Globulin (2.5-4.0) gm/dl Albumin/Globulin Ratio (0.9-2) Urine Color Urine Appearance (Clear) Urine pH (4.5-7.5) Ur Specific [place] (1.000-1.030) Urine Protein (Negative) Urine Glucose (UA) (Negative) Urine Ketones (Negative) Urine Blood (Negative) Urine Nitrite (Negative) Urine Bilirubin (Negative) Urine Urobilinogen (Negative) Ur Leukocyte Esterase (Negative) Urine WBC (Auto) (0-5) /hpf Urine RBC (Auto) (0-4) /hpf U Hyaline Cast (Auto) (0-5) /lpf U Epithel Cells (Auto) (0-5) /lpf Urine Bacteria (Auto) (Negative) Urine Mucus (None Prsent) Digoxin (0.8-2.0) ng/ml Imaging Data Attestation: I personally reviewed and interpreted this imaging study as follows: My Impression: Chest x-ray to my interpretation reveals mild cardiomegaly, no evidence of focal lung consolidation or failure. Radiologist's Impression: Head CT: No acute intracranial findings. No change from August 18, 2019. Radiologist Bob Knott MD ECG Data Attestation: I personally reviewed and interpreted this ECG as follows: Indication: + syncope Rate (beats per minute): 87 Rhythm: + atrial fibrillation ECG Intervals/blocks: + Normal QT-c ECG Coward: + Left axis deviation ECG ST segments: + Normal ST segments ECG Findings: no PACs and no PVCs Blood Pressure Blood Pressure Findings: Low blood pressure Blood Pressure Disposition: further management by hospitalist ROBERT Ocasio This patient was evaluated and appeared to be in no significant distress. IV access was obtained and laboratory work was drawn. An order for cardiac monitoring was placed and the patient is found to be in an atrial fibrillation at [address] is negative for acute intracranial pathology. Laboratory work is fairly reassuring with the exception of a mild leukocytosis. Patient's urinalysis is contaminated and likely negative for infection. He did receive IV hydration in the emergency department. The patient has now been in the emergency department twice within the last week and has had no signs of improvement. Patient will be evaluated by the hospitalist service for further evaluation and management. Patient is aware of this plan and agrees. Impression & Plan Parkinson disease, Weakness Discharge Plan Visit Data *Final* Discharge Date/Time: 03/06/20 05:38 Chief Complaint: Weakness Stated Complaint: WEAK,FAINT,SOB ED Provider: Britney Estarda Discharge Problem: Parkinson disease, Weakness Patient Disposition: Admitted As Inpatient Discharge Instructions Interventions: ED Discharge Assessment Last Done: 03/06/20 05:38
--- NOTE | 2020-03-06 03:46 | History & Physical Report ---
Date of Service March 06, 2020 Assessment & Plan Admission and Anticipated Discharge Date Admission Date: 79 yo M pMHx. of Parkinson's, Raynauds, HTN, BPH, A. fib presenting with 7-10 days of symptoms of worsening fainting, dizzy, weakness, fatigue and loss of appetite Syncope concerning for dysautonomia potentially due to Parkinson's vs. medication side effects. Shy Drager possible but unable to obtain MRI due to implantable device. Less likely Serotonin syndrome but will hold Sertraline for now. - nl. electrolytes - cardiology consulted - neurology consulted - ordered dig level - f/u environmental monitoring specialist results - held Sertraline - holding Atenolol due to concern for low BP - IVF 125 ml/hr Erythematous left leg w/ tracking up inner leg to the groin; concerning for cellulitis, lymphangitis and less likely DVT given pt. on anticoagulation - WBC 11.55, HR 100, BP 144/87 - ordered blood cultures - ordered Vancomycin and Zosyn - f/u doppler of lower extremity Atrial fibrillation - continue rivaroxaban - continue Digoxin Parkinson's - continue Carbidopa-levodopa, entacapone, pramipexol abnormal UA, contaminated - symptoms of difficulty urinating w/o dysuria (hx. 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 They include syncope, dizziness, weakness, confusion, increased sleep, fatigue and loss of appetite, and night sweats. He had gone to [facility] ER in [facility] Wednesday for fainting 2X. Mr. Perea was concerned that he may have Serotonin syndrome. Interrogation of his Medtronic LINQ 02/15 shows: -- A-Fib. -- Brief episodes of RVR at times with rates up to > 200 bpm. -- 396 episodes of tachycardia (HR >155 bpm) -- One cardiac pause lasting 3 seconds -- asymptomatic. -- Symptom of Lightheadedness on the one described occasion correlated with atrial fibrillation at a rate of 188 bpm. -- He has multiple episodes of RVR at similar rates that are completely asymptomatic. His Digoxin level was drawn 02/15/2020 and was subtherapeutic at 0.3 ng/ml -- he had only been taking 62.5 mcg. Patient was advised to increase Digoxin to 125 mcg daily which will hopefully improve his rate control. Neurology last saw him on 02/12 "Patient feels his balance has been getting a little bit worse over the last 6 months. He tries to be very cautious it is not falling. He denies any headaches or pain. His is present for this to way video visit and she helps add to the history. He will take naps during the day most days. He has occasional tremor in his left lower extremity. He has some lightheadedness with standing and walking but he is not fainting. His memory is slowly getting a little bit worse particularly with short-term memory. His long-term memory is more stable. He has hallucinations seeing small people, from time to time during the day. These do not bother him that much. He tried Nuplazid but this made the hallucinations worse. He then stop that 2 weeks ago and is back to his regular baseline. He also has a significant paranoia about things going on in the neighborhood particularly against him. He can't seem to shake this and the medication did not help this either." Allergies Allergy/AdvReac Type Severity Reaction Status Date / Time No Known Allergies Allergy Verified 03/06/20 00:17 Home Medications Home Medications Medication Instructions Recorded Confirmed Type pramipexole 3 mg tablet,extended 3 mg PO HS #90 tab 09/04/19 03/06/20 Rx release 24 hr rasagiline 1 mg tablet 1 mg PO DAILY #90 tab 09/04/19 03/06/20 Rx entacapone 200 mg tablet 200 mg PO Q8H #270 tab 10/25/19 03/06/20 Rx digoxin 125 mcg (0.125 mg) tablet 125 mcg PO DAILY #90 tab 11/15/19 03/06/20 Rx levothyroxine 25 mcg tablet 25 mcg PO QAM #90 tab 01/30/20 03/06/20 Rx rivaroxaban 20 mg tablet 20 mg PO HS #90 tab 02/13/20 03/06/20 Rx sertraline 50 mg tablet 50 mg PO DAILY #30 tab 02/13/20 03/06/20 Rx atenolol 25 mg PO HS 03/06/20 03/06/20 History carbidopa-levodopa 1 tab PO QID 03/06/20 03/06/20 History cholecalciferol (vitamin D3) 50 mcg PO DAILY 03/06/20 03/06/20 History [Vitamin D3] Past Med/Surg History Medical History (Updated 03/06/20 @ 13:25 by Bradley Michel MD) Arthralgia of multiple joints (Acute) Atrial fibrillation (Chronic) BPH (benign prostatic hyperplasia) (Acute) Delusion Dyspnea on exertion (Acute) Elevated PSA (Chronic) Hypertension (Chronic) Hypothyroidism, adult (Chronic) Idiopathic polyneuropathy (Acute) Lymphedema (Acute) Moderate mitral regurgitation (Acute) Moderate tricuspid regurgitation (Acute) Near syncope Parkinson's disease (Chronic) Parkinson's disease dementia Peripheral edema (Acute) Pneumonia (Inactive) Pseudobulbar affect Rapid atrial fibrillation (Resolved) Raynaud's disease (Acute) Septic bursitis of elbow Splenomegaly (Acute) Syncope (Inactive) Venous insufficiency (chronic) (peripheral) (Acute) Visual hallucination (Acute) Vitamin D deficiency (Acute) Surgical History H/O inguinal hernia repair History of surgical removal of skin lesion 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 S/P tonsillectomy and adenoidectomy Family History Unknown Myocardial infarction Father Cardiac disorder Mother Colon cancer Denies family history of Ovarian cancer Prostate cancer Breast cancer Social History Preferred Language: Hungarian Communication Ability: Effective 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 Beliefs That Will Affect Care: None marital status: Current Living Situation: Spouse current occupational status: retired Other Information That Helps Us Care for You: No Feels Safe at Home: Yes Safety Concerns: Feels Safe At This Time Smoking Status: Never smoker Second Hand Exposure: No ; Hx Alcohol Use: Yes Alcohol type: beer Hx Substance Use: No Review of Systems Review of Systems: Constitutional: deneis fevers or chills, weight change admits night sweats Head: admits fall on face 2 weeks prior, denies focal weakness Cardiac: denies chest pain, palpitations, PND, TATE Pulm: denies cough or shortness of breath GI: denies diarrhea admits constipation : denies dysuria, urgency, admits trouble urinating in the morning and evening Physical Exam Constitutional: no acute distress and not ill appearing Eyes: PERRL, conjunctivae normal, anicteric sclerae ENMT: external ear and nose normal, oropharynx normal Neck: normal visual inspection Respiratory: normal respiratory effort, lungs clear to auscultation Cardiovascular: RRR, no murmur, no edema Gastrointestinal (Abdomen): normal bowel sounds, soft, nontender, no hep atosplenomegaly Skin: - left lower leg with erythema, warmth, and tracking up the medial thigh to the groin Neurologic: CN's II-XI intact bilaterally (left sided eyelid and corner of the mouth droop, ) Psychiatric: A+Ox3, euthymic affect Results & Data Results & Data ([facility]) Vital Signs (Past 12 Hours) Vital Signs Temp Pulse Resp BP Pulse Ox 03/06/20 03:00 103 H 24 146/86 H 95 03/06/20 02:31 98 H 24 130/77 95 03/06/20 02:01 91 H 21 108/75 95 03/06/20 01:30 96 H 21 116/64 95 03/06/20 00:30 95 H 23 115/70 95 03/06/20 00:00 99 H 22 114/78 94 03/05/20 23:44 88 24 119/80 93 03/05/20 23:31 110 H 25 H 03/05/20 20:55 36.9 C 84 18 105/[address] head: no acute intracranial findings CBC Results Results Complete Blood Count Results: RBC 4.96 M/uL (4.7-6.1) 03/06/20 WBC 10.00 K/uL (4.8-10.8) 03/06/20 Hgb 15.5 g/dL (14.0-18.0) 03/06/20 Hct 47.2 % (42-52) 03/06/20 Plt Count 161 K/uL (130-400) 03/06/20 Chemistry (BMP) Results BMP Results: Sodium 141 mmol/L (136-145) 03/06/20 Potassium 4.6 mmol/L (3.5-5.1) 03/06/20 Chloride 109 mmol/L (98-107) H 03/06/20 BUN 28 mg/dl (7-18) H 03/06/20 Creatinine 1.09 mg/dl (0.6-1.4) 03/06/20 Glucose 79 mg/dl (70-99) 03/06/20 Code Status & VTE Plan VTE Prophylaxis Plan VTE Prophylaxis will be ordered: Yes Supervising Physician Co-Signing Physician Notes Attending addendum: I have physically seen this patient, have supervised the medical residents activities, and agree with the H&P unless as otherwise noted. Assessment and Plan: Multiple episodes of syncope- Has been worked up in the outpatient setting. He has had a permanent loop recorder placed. Concerns regarding dysautonomia associate with his Parkinson's. He has been holding his atenolol due to low blood pressure He and his feel he has been worsened since taking sertraline over the past 2 weeks, and will for now be held. NSS 25 mils per hour Consult neurology Consult cardiology Parkinson's- Continue carbidopa/levodopa, entacapone and pramipexole Atrial fibrillation- Continue Xarelto. Continue digoxin if level is normal Remaining orders and notations as noted
[2020-03-06] MEDS ORDERED: VANCOMYCIN HCL 1,250 MG in SODIUM CHLORIDE 0.9% 500 ML IV SCH (06:35)
[2020-03-06] MEDS ORDERED: ACETAMINOPHEN 325 MG TAB PO PRN (06:35)
[2020-03-06] MEDS ORDERED: ALUMINUM/MAGNESIUM SUSP 30 ML UDC PO PRN (06:35)
[2020-03-06] MEDS ORDERED: ONDANSETRON INJ 2 MG/ML 2 ML VIAL IV PRN (06:35)
[2020-03-06] MEDS ORDERED: MAGNESIUM HYDROXIDE SUSP 30 ML UDC PO PRN (06:35)
[2020-03-06] MEDS ORDERED: PIPERACILL/TAZOBAC CONSULT ACTIVE PRN (06:35)
[2020-03-06] MEDS ORDERED: LACTATED RINGER'S 1,000 ML IV SCH (06:35)
[2020-03-06] MEDS ORDERED: POLYETHYLENE (MIRALAX) 17 GM PACK PO PRN (06:35)
--- NOTE | 2020-03-06 07:17 | CT Scan Report ---
CT head/brain wo con CT DOSE: 691.05 mGy.cm HISTORY: Mental status change weakness, near syncope TECHNIQUE: Multiaxial CT images of the head were performed without the use of intravenous contrast. A dose lowering technique was utilized adhering to the principles of ALARA. Comparison: 08/18/2019 Findings: The paranasal sinuses and mastoid air cells are clear. The calvarium and skull base are int act. The ventricles and sulci are within normal limits. There is no mass, hematoma, midline shift, or acute infarct. Impression: No acute intracranial abnormality. ACT 112: Negative or not required by law. The above report was generated using voice recognition software. It may contain grammatical, syntax or spelling errors. Electronically signed by: Jose Juan Lemus M.D. 03/06/2020 7:16 AM
[2020-03-06] MEDS ORDERED: VANCOMYCIN CONSULT ACTIVE PRN (07:29)
[2020-03-06] MEDS ORDERED: PIPERACILLIN/TAZOBACTAM 3.375 GM in DEXTROSE 5% 100 ML/100 ML BAG IV ONE (07:30)
[2020-03-06] MEDS ORDERED: VANCOMYCIN HCL 2,000 MG in SODIUM CHLORIDE 0.9% 500 ML IV ONE (07:30)
--- NOTE | 2020-03-06 07:57 | XRay Report ---
XR chest 1V portable HISTORY: syncope COMPARISON: Chest 08/23/2019. FINDINGS: No pneumothorax. No pleural effusions. The cardiac silhouette remains mildly enlarged. No n ew focal lung consolidations to suggest pneumonia. No evidence for pulmonary edema. A few bibasilar l inear densities favor subsegmental atelectasis. Old, healed right lower rib fractures. IMPRESSION: Stable mild cardiomegaly. No acute process within the chest. ACT 112: Negative or not required by law. Electronically signed by: Stephan Peace M.D. 03/06/2020 7:55 AM
[2020-03-06] MEDS: SODIUM CHLORIDE 0.9% 1000ML 1,000 ML IV SCH ×2 (08:33→16:26)
[2020-03-06] MEDS: LEVOTHYROXINE SODIUM 25 MCG TABLET PO SCH (08:33)
[2020-03-06] MEDS: ENTACAPONE 200 MG TAB PO SCH ×3 (08:34→21:56)
[2020-03-06] MEDS: CHOLECALCIFEROL 1,000 UNITS 25 MCG TAB PO SCH (08:35)
[2020-03-06] MEDS: CARBIDOPA/LEVODOPA 25-250 1 EA TAB PO SCH ×4 (08:35→21:56)
[2020-03-06] MEDS: [UNRECOGNIZED DRUG - REMARK] SCH ×3 (08:36→20:51)
--- NOTE | 2020-03-06 09:54 | Ultrasound Report ---
US venous doppler LE BI CLINICAL HISTORY: Leg pain and redness. Bilateral leg swelling COMPARISON STUDY: 03/01/2018 FINDINGS: Real-time and color flow Doppler imaging were performed. Flow was seen within the femoral, popliteal and calf veins with no intraluminal thrombus demonstrated. The saphenous vein is patent. IMPRESSION: No evidence of lower extremity DVT. ACT 112: Negative or not required by law. Electronically signed by: Mustapha Blanc M.D. 03/06/2020 9:53 AM
--- NOTE | 2020-03-06 10:26 | Hospitalist Progress Note ---
Date of Service March 06, 2020 Assessment & Plan (1) Cellulitis: Efrem Garcia is a 79y/o M w/ PMH significant for Parkinson's, Raynauds, HTN, BPH, A. fib Cellulitis vs Lymphadenitis: - tracking erythema from LLE to inner thigh, no evidence of abscess; demarcated on admission - discontinued Vancomycin and Zosyn; started Ceftriaxone 2g daily - likely exacerbated known syncopal episodes with h/o of Parkinson's - Neurology consulted: recent weakness likely exacerbated by suspected cellulitis; resume home Sinemet, rasagiline, and pramipexole - Cardiology consulted: recommended addition of amiodarone for rate control, with elimination of atenolol for limited hypotensive effects - continue to observe cellulitis, if concerns for worsening infection then would re-escalate abx - continue to observe for retraction from original outlined infection A. fib: - permanent A. fib, was previously instructed to take a higher level of Digoxin given previously low Dig level, but stopped taking the higher dose after one dose - Digoxin level: 0.5 - Cardiology consulted: restart digoxin, hold atenolol, with addition of amiodarone to limit potential orthostatic effects Diet: regular DVT ppx: continue Xarelto Code: DNR/DNI Admission and Anticipated Discharge Date Admission Date: March 06, 2020 Supervising Physician Co-Signing Physician Notes I personally examined the patient and verified all monsivais points of history and exam, discussed case, and agree with decision making with Dr Michel. feeling better. leg doing better / less red and painful, and otherwise just generally feels better overall vitals noted nad heent nc at mmm breathing unlabored no accessory muscles good effort skin no rashes no pallor or icterus neuro somewhat shaky, slightly forced staccato voice. LLE distal venous stasis changes, streaking red/warm/tender up medial thigh no fluctuance cellulitis/lymphangitis - improved quickly - will try to streamline abx for now and follow -- can re-escalate if any worsening, but would facilitate easier transition to PO abx if continues to do well syncope - likely parkinsons mediated (autonomic insufficiency most likely) but really worsened/exacerbated by above -- hopefully treating above will help; outpt f/u on parkinsons afib - work on better rate control, anticoagulated w xarelto. doubt this played a role in his event otherwise as above Subjective Doing well this morning, thinks he has had a portion of the leg redness and swellling for a long period of time, but the tracking up his thigh is definitely new over the last several days. States that despite being started on a higher dose of digoxin when last seen by cardiology, he only took one dose of this higher amount, and when he didn't like how it made him feel went back to taking the lower dose, before actually stopping taking the medication over the last couple days as he continued to feel worse. Denies fevers, chills, sweats, changes in vision, changes in color of vision. Review of Systems Review of Systems: All systems reviewed & are unremarkable except as noted in Subjective Physical Exam Constitutional: WD/WN, vitals as above Eyes: PERRL, conjunctivae normal, anicteric sclerae ENMT: external ear and nose normal, oropharynx normal Respiratory: normal respiratory effort, lungs clear to auscultation Cardiovascular: Rate/Rhythm: regular rate and + irregularly irregular Heart Sounds: no gallop, no murmur and no cardiac rub Extremities: no pedal edema Gastrointestinal (Abdomen): normal bowel sounds, soft, nontender, no hepatosplenomegaly Musculoskeletal: no cyanosis or clubbing, extremities motor strength 5/5 Skin: + rash (predominant over LLE with tracking up into groin), + induration and + erythema (crossing line of demarcation over anterior knee) Neurologic: patellar DTR's 2+ bilat, sensation intact Psychiatric: A+Ox3, euthymic affect Lymphatic: no lymphadenopathy Results & Data Results & Data ([facility]) Vital Signs (Past 12 Hours) Vital Signs Temp Pulse Pulse Resp BP BP Pulse Ox 03/06/20 06:44 36.6 C 87 20 152/82 H 97 03/06/20 06:01 89 24 137/81 03/06/20 05:30 100 H 21 144/87 H 95 03/06/20 05:00 101 H 24 125/70 95 03/06/20 04:31 103 H 24 127/90 95 03/06/20 04:00 84 20 134/80 96 03/06/20 03:31 90 24 129/86 96 03/06/20 03:00 103 H 24 146/86 H 95 03/06/20 02:31 98 H 24 130/77 95 06/24/20 02:01 91 H 21 108/75 95 03/06/20 01:30 96 H 21 116/64 95 03/06/20 00:30 95 H 23 115/70 95 03/06/20 00:00 99 H 22 114/78 94 03/05/20 23:44 88 24 119/80 93 03/05/20 23:31 110 H 25 H Laboratory Results 03/06/20 03/06/20 03/06/20 Range/Units 10:38 10:38 10:38 WBC 10.00 (4.8-10.8) K/uL RBC 4.96 (4.7-6.1) M/uL Hgb 15.5 (14.0-18.0) g/dL Hct 47.2 (42-52) % MCV 95.2 (80-100) fL MCH 31.3 (25-34) pg MCHC 32.8 (32-36) g/dL RDW Std Deviation 50.4 H (36.4-46.3) fL RDW Coeff of Marcia 14.4 (11.5-14.5) % Plt Count 161 (130-400) K/uL MPV 10.5 H (7.4-10.4) fL Immature Gran % (Auto) 0.3 % Neut % (Auto) 82.3 % Lymph % (Auto) 10.3 % [place] % (Auto) 5.9 % Eos % (Auto) 1.0 % Baso % (Auto) 0.2 % Neut # (Auto) 8.23 H (1.4-6.5) K/uL Lymph # (Auto) 1.03 L (1.2-3.4) K/uL [place] # (Auto) 0.59 (0.11-0.59) K/uL Eos # (Auto) 0.10 (0-0.5) K/uL Baso # (Auto) 0.02 (0-0.2) K/uL Immature Gran # (Auto) 0.03 H (0.00-0.02) K/uL Sodium 141 (136-145) mmol/L Potassium 4.6 (3.5-5.1) mmol/L Chloride 109 H (98-107) mmol/L Carbon Dioxide 30 (21-32) mmol/L Anion Gap 2.0 L (3-11) BUN 28 H (7-18) mg/dl Creatinine 1.09 (0.6-1.4) mg/dl Est Cr Clr Drug Dosing 62.3 Est GFR ( Amer) 75.5 Est GFR (Non-Af Amer) 65.1 BUN/Creatinine Ratio 25.5 H (10-20) Glucose 79 (70-99) mg/dl POC Glucose (70-99) mg/dl Calcium 8.6 (8.5-10.1) mg/dl Phosphorus Cancelled 1.9 L (2.5-4.9) mg/dl Magnesium Cancelled 2.1 (1.8-2.4) mg/dl Total Bilirubin (0.2-1) mg/dl AST (15-37) U/L ALT (12-78) U/L Alkaline Phosphatase (45-117) U/L Total Creatine Kinase (39-308) U/L Troponin I (0-0.045) ng/ml Total Protein (6.4-8.2) gm/dl Albumin (3.4-5.0) gm/dl Globulin (2.5-4.0) gm/dl Albumin/Globulin Ratio (0.9-2) Urine Color Urine Appearance (Clear) Urine pH (4.5-7.5) Ur Specific Gans (1.000-1.030) Urine Protein (Negative) Urine Glucose (UA) (Negative) Urine Ketones (Negative) Urine Blood (Negative) Urine Nitrite (Negative) Urine Bilirubin (Negative) Urine Urobilinogen (Negative) Ur Leukocyte Esterase (Negative) Urine WBC (Auto) (0-5) /hpf Urine RBC (Auto) (0-4) /hpf U Hyaline Cast (Auto) (0-5) /lpf U Epithel Cells (Auto) (0-5) /lpf Urine Bacteria (Auto) (Negative) Urine Mucus (None Prsent) Digoxin 03/06/20 03/05/20 03/05/20 Range/Units 10:38 23:48 23:40 WBC (4.8-10.8) K/uL RBC (4.7-6.1) M/uL Hgb (14.0-18.0) g/dL Hct (42-52) % MCV (80-100) fL MCH (25-34) pg MCHC (32-36) g/dL RDW Std Deviation (36.4-46.3) fL RDW Coeff of Marcia (11.5-14.5) % Plt Count (130-400) K/uL MPV (7.4-10.4) fL Immature Gran % (Auto) % Neut % (Auto) % Lymph % (Auto) % [place] % (Auto) % Eos % (Auto) % Baso % (Auto) % Neut # (Auto) (1.4-6.5) K/uL Lymph # (Auto) (1.2-3.4) K/uL [place] # (Auto) (0.11-0.59) K/uL Eos # (Auto) (0-0.5) K/uL Baso # (Auto) (0-0.2) K/uL Immature Gran # (Auto) (0.00-0.02) K/uL Sodium (136-145) mmol/L Potassium (3.5-5.1) mmol/L Chloride (98-107) mmol/L Carbon Dioxide (21-32) mmol/L Anion Gap (3-11) BUN (7-18) mg/dl Creatinine (0.6-1.4) mg/dl Est Cr Clr Drug Dosing Est GFR ( Amer) Est GFR (Non-Af Amer) BUN/Creatinine Ratio (10-20) Glucose (70-99) mg/dl POC Glucose 121 H (70-99) mg/dl Calcium (8.5-10.1) mg/dl Phosphorus (2.5-4.9) mg/dl Magnesium (1.8-2.4) mg/dl Total Bilirubin (0.2-1) mg/dl AST (15-37) U/L ALT (12-78) U/L Alkaline Phosphatase (45-117) U/L Total Creatine Kinase (39-308) U/L Troponin I (0-0.045) ng/ml Total Protein (6.4-8.2) gm/dl Albumin (3.4-5.0) gm/dl Globulin (2.5-4.0) gm/dl Albumin/Globulin Ratio (0.9-2) Urine Color Dark Yellow Urine Appearance Clear (Clear) Urine pH 5.0 (4.5-7.5) Ur Specific Gans 1.027 (1.000-1.030) Urine Protein 1+ H (Negative) Urine Glucose (UA) Negative (Negative) Urine Ketones Trace H (Negative) Urine Blood Negative (Negative) Urine Nitrite Negative (Negative) Urine Bilirubin Negative (Negative) Urine Urobilinogen Negative (Negative) Ur Leukocyte Esterase Negative (Negative) Urine WBC (Auto) 1-5 (0-5) /hpf Urine RBC (Auto) 0-4 (0-4) /hpf U Hyaline Cast (Auto) >30 H (0-5) /lpf U Epithel Cells (Auto) 10-20 H (0-5) /lpf Urine Bacteria (Auto) 1+ H (Negative) Urine Mucus Present A (None Prsent) Digoxin Pending 03/05/20 03/05/20 Range/Units 23:40 23:40 WBC 11.55 H (4.8-10.8) K/uL RBC 4.54 L (4.7-6.1) M/uL Hgb 14.0 (14.0-18.0) g/dL Hct 42.8 (42-52) % MCV 94.3 (80-100) fL MCH 30.8 (25-34) pg MCHC 32.7 (32-36) g/dL RDW Std Deviation 50.1 H (36.4-46.3) fL RDW Coeff of Marcia 14.5 (11.5-14.5) % Plt Count 160 (130-400) K/uL MPV 10.5 H (7.4-10.4) fL Immature Gran % (Auto) 0.1 % Neut % (Auto) 80.4 % Lymph % (Auto) 12.6 % [place] % (Auto) 5.8 % Eos % (Auto) 1.0 % Baso % (Auto) 0.1 % Neut # (Auto) 9.29 H (1.4-6.5) K/uL Lymph # (Auto) 1.46 (1.2-3.4) K/uL [place] # (Auto) 0.67 H (0.11-0.59) K/uL Eos # (Auto) 0.11 (0-0.5) K/uL Baso # (Auto) 0.01 (0-0.2) K/uL Immature Gran # (Auto) 0.01 (0.00-0.02) K/uL Sodium 142 (136-145) mmol/L Potassium 4.0 (3.5-5.1) mmol/L Chloride 107 (98-107) mmol/L Carbon Dioxide 30 (21-32) mmol/L Anion Gap 5.0 (3-11) BUN 36 H (7-18) mg/dl Creatinine 1.33 (0.6-1.4) mg/dl Est Cr Clr Drug Dosing Not Reportable Est GFR ( Amer) 59.3 Est GFR (Non-Af Amer) 51.2 BUN/Creatinine Ratio 26.8 H (10-20) Glucose 99 (70-99) mg/dl POC Glucose (70-99) mg/dl Calcium 8.3 L (8.5-10.1) mg/dl Phosphorus (2.5-4.9) mg/dl Magnesium (1.8-2.4) mg/dl Total Bilirubin 1.0 (0.2-1) mg/dl AST 12 L (15-37) U/L ALT 12 (12-78) U/L Alkaline Phosphatase 140 H (45-117) U/L Total Creatine Kinase 100 (39-308) U/L Troponin I < 0.015 (0-0.045) ng/ml Total Protein 6.4 (6.4-8.2) gm/dl Albumin 3.0 L (3.4-5.0) gm/dl Globulin 3.4 (2.5-4.0) gm/dl Albumin/Globulin Ratio 0.9 (0.9-2) Urine Color Urine Appearance (Clear) Urine pH (4.5-7.5) Ur Specific Gans (1.000-1.030) Urine Protein (Negative) Urine Glucose (UA) (Negative) Urine Ketones (Negative) Urine Blood (Negative) Urine Nitrite (Negative) Urine Bilirubin (Negative) Urine Urobilinogen (Negative) Ur Leukocyte Esterase (Negative) Urine WBC (Auto) (0-5) /hpf Urine RBC (Auto) (0-4) /hpf U Hyaline Cast (Auto) (0-5) /lpf U Epithel Cells (Auto) (0-5) /lpf Urine Bacteria (Auto) (Negative) Urine Mucus (None Prsent) Digoxin Medications Administered Current Inpatient Medications Acetaminophen (Tylenol) 650 mg PO Q4H PRN PRN Reason: pain/fever Stop: 04/05/20 06:34 Al Hydrox/Mg Hydrox/Simethicone (Maalox) 30 ml PO Q6H PRN PRN Reason: Dyspepsia Stop: 04/05/20 06:34 Carbidopa/Levodopa (Sinemet 25/250mg) 1 tab PO QID [facility] Stop: 04/05/20 08:59 Last Admin: 03/06/20 08:35 Dose: 1 tab Documented by: Digoxin (Lanoxin) 0.125 mg PO DAILY@1600 [facility] Stop: 04/05/20 15:59 Entacapone (Comtan) 200 mg PO Q8 [facility] Stop: 04/05/20 07:59 Last Admin: 03/06/20 08:34 Dose: 200 mg Documented by: Sodium Chloride (Nss 1000ml) 1,000 mls @ 125 mls/hr IV .Q8H [facility] Stop: 04/04/20 22:44 Last Admin: 03/06/20 08:33 Dose: 125 mls/hr Documented by: Levothyroxine Sodium (Synthroid) 25 mcg PO DAILYBB [facility] Stop: 04/05/20 06:44 Last Admin: 03/06/20 08:33 Dose: 25 mcg Documented by: Magnesium Hydroxide (Milk Of Magnesia) 30 ml PO Q6H PRN PRN Reason: Constipation Stop: 04/05/20 06:34 Miscellaneous (Order Awaiting Action) 1 ea N/A QS [facility] Stop: 04/05/20 07:59 Last Admin: 03/06/20 08:36 Dose: Not Given Documented by: Miscellaneous Information (Consult) 1 ea N/A UD PRN PRN Reason: Consult Stop: 04/05/20 07:28 Ondansetron HCl (Zofran) 4 mg IV Q6H PRN PRN Reason: Nausea Stop: 04/05/20 06:34 Polyethylene Glycol (Miralax Powder Packet) 17 gm PO DAILY PRN PRN Reason: Constipation Stop: 04/05/20 06:34 Pramipexole Dihydrochloride (Mirapex) 3 mg PO HS [facility] Stop: 04/05/20 20:59 Rivaroxaban (Xarelto) 20 mg PO QDD [facility] Stop: 04/05/20 16:29 Vitamin D (Vitamin D3) 2,000 units PO DAILY [facility] Stop: 04/05/20 08:59 Last Admin: 03/06/20 08:35 Dose: 2,000 units Documented by: Resident Activity Tracking Resident Involvement: Resident Care Provided Care Provided: Adult Hospital Medicine
[2020-03-06 11:06] LABS: Basophils # (auto) 0.02 K/uL (0-0.2); Basophils % (auto) 0.2 %; Hematocrit (blood only) 47.2 % (42-52); Hemoglobin 15.5 g/dL (14.0-18.0); Immature Granulocytes # (auto) 0.03 K/uL (0.00-0.02); Immature Granulocytes % (auto) 0.3 %; Lymphocytes # (auto) 1.03 K/uL (1.2-3.4); Lymphocytes % (auto) 10.3 %; Mean Corpuscular Hemoglobin 31.3 pg (25-34); Mean Corpuscular Hgb Conc 32.8 g/dL (32-36); Mean Corpuscular Volume 95.2 fL (80-100); Mean Platelet Volume 10.5 fL (7.4-10.4); Monocytes # (auto) 0.59 K/uL (0.11-0.59); Monocytes % (auto) 5.9 %; Neutrophils # (auto) 8.23 K/uL (1.4-6.5); Neutrophils % (auto) 82.3 %; Platelet Count 161 K/uL (130-400); RDW Coefficient of Variation 14.4 % (11.5-14.5); RDW Standard Deviation 50.4 fL (36.4-46.3); Red Blood Count 4.96 M/uL (4.7-6.1)
[2020-03-06 11:23] LABS: BUN Creatinine Ratio 25.5 (10-20); Calcium 8.6 mg/dl (8.5-10.1); Creatinine Clr Calc Pharmacy 62.3 ml/min; Est GFR (African American) 75.5; Est GFR (Non-African American) 65.1; Magnesium 2.1 mg/dl (1.8-2.4); Phosphorus 1.9 mg/dl (2.5-4.9); Potassium 4.6 mmol/L (3.5-5.1)
--- NOTE | 2020-03-06 11:30 | Cardiology Consultation ---
Date of Consultation March 06, 2020 Assessment & Plan (1) Atrial fibrillation: He has permanent atrial fibrillation. He is on appropriate anticoagulation. He appears to have an adequate rate control currently. Prior outpatient monitoring suggested generally adequate rate control, and he was recently advised to increase digoxin. Reportedly he was taking atenolol but according to the patient he is actually not been taking this medication. There have been some concerns in the past regarding hypotension or orthostatic hypotension and standard rate control agents such as diltiazem and beta-blockers have been avoided. How his atrial fibrillation and associated high rates are related to his symptoms is unclear. He certainly has frequent high atrial rates even at rest. While he generally had good rate control throughout this hospitalization, simply sitting in his wheelchair during our conversation he had heart rates as high as 190 beats per minute. However, he did not report any symptoms of dizziness, lightheadedness or presyncope at this time. I think the best option for him in the immediate term is better rate control. This could be accomplished with amiodarone. On this is a less attractive agent for most patients, he would likely provide adequate rate control without any associated concerns of hypotension. I think it is at least worth trying to see if we can get adequate rate control and then reassessing that therapy once that has been accomplished. At that point we will be able to associate any improvement in his symptoms with better rate control. (2) Near syncope: Patient does not report actual loss of consciousness but clearly has paroxysmal weakness and loss of postural tone almost exclusively associated with activity. No specific arrhythmia has been correlated with these episodes. He does have frequent high ventricular rates associated with this atrial fibrillation, but these rates are high during periods of rest as well as activity. He does not report symptoms at rest. He does not report daily sym ptoms although clearly has elevated ventricular rates every day. It is possible that with activity and high ventricular rates in the setting of his underlying neurologic disease he develops significant weakness or poor cardiac output. As such, I think we need to simply concentrate on adequate rate control to see if this affects his symptoms. We can employ amiodarone as noted above in order to avoid any concerns regarding hypotension with other agents. If his symptoms are ameliorated with improved rate control we can consider alternative treatments such as ablate and pace if necessary. (3) Moderate mitral regurgitation: History of Present Illness Reason for Consultation: Dizziness, weakness, syncope Requesting Physician: Lorraine Attending Physician: Preston Cortés DO History of Present Illness The patient is a 79-year-old gentleman with a history of Parkinson's disease and permanent atrial fibrillation who has been suffering from occasional episodes of dizziness and reported syncope. Patient was admitted to the hospital in August of 2019 after suffering episodes of syncope. The etiology of his episodes was unclear at that time and he did undergo implantation of a loop recorder in order to identify any associated arrhythmias. The patient has continued to have symptoms over the course of the past few months and recently seems to have developed more frequent and more significant episodes. In fact, he was at his vacation home in [place] when he sought medical attention at a local hospital for recurring symptoms. By his report no specific therapy or diagnosis was made other than an assumption that he was dehydrated and perhaps had an element of orthostatic hypotension. He voluntarily left the hospital and proceeded back to [facility] in order to see his usual physicians regarding this problem. The episodes in general involve a sense of dizziness and presyncope. The symptoms developed quite rapidly and often times the patient is unable to perform any intervention or therapy prior to losing postural tone. Patient feels that the episodes are almost exclusively related to activity. He occasionally has an element of mild dizziness associated with changing positions but the episodes themselves seem to happen more commonly with exertion not simply changing positions. The degree of exertion also seems to make a difference. With mild activity he is relatively asymptomatic. In fact, he has been able to work in his wood shop at home for extended periods without symptoms of this nature. This activity can involved prolonged periods of standing and mild exertion. However, at ascending stairs or more extreme forms of exertion often times precipitate the symptoms. Patient states that he almost immediately becomes weak and needs to sit down or lie down. If he is not able to do this safely he will generally fall down. He is fairly emphatic regarding the fact that he does not lose consciousness entirely. His mentation is off very briefly and he is quite weak for a few minutes but generally speaking is able to regain his footing and resume his activity after an episode of this nature. He feels that these episodes are happening with less and less exertion. During today's interview he claims to be feeling well. He did not report symptoms of dizziness lightheadedness sitting in his wheelchair. Allergies Allergy/AdvReac Type Severity Reaction Status Date / Time No Known Allergies Allergy Verified 03/10/20 20:00 Home Medications Home Medications Medication Instructions Recorded Confirmed Type pramipexole 3 mg tablet,extended 3 mg PO HS #90 tab 09/04/19 03/10/20 Rx release 24 hr rasagiline 1 mg tablet 1 mg PO DAILY #90 tab 09/04/19 03/10/20 Rx entacapone 200 mg tablet 200 mg PO Q8H #270 tab 10/25/19 03/10/20 Rx levothyroxine 25 mcg tablet 25 mcg PO QAM #90 tab 01/30/20 03/10/20 Rx rivaroxaban 20 mg tablet 20 mg PO HS #90 tab 02/13/20 03/10/20 Rx carbidopa-levodopa 1 tab PO QID 03/06/20 03/10/20 History cholecalciferol (vitamin D3) 50 mcg PO DAILY 03/06/20 03/10/20 History [Vitamin D3] amiodarone 400 mg PO BIDM 12 Days #48 tab 03/08/20 03/10/20 Rx Patient History Medical History Arthralgia of multiple joints (Acute) Atrial fibrillation (Chronic) BPH (benign prostatic hyperplasia) (Acute) Delusion Dyspnea on exertion (Acute) Elevated PSA (Chronic) Hypertension (Chronic) Hypothyroidism, adult (Chronic) Idiopathic polyneuropathy (Acute) Lymphedema (Acute) Moderate mitral regurgitation (Acute) Moderate tricuspid regurgitation (Acute) Near syncope Parkinson's disease (Chronic) Parkinson's disease dementia Peripheral edema (Acute) Pneumonia (Inactive) Pseudobulbar affect Rapid atrial fibrillation (Resolved) Raynaud's disease (Acute) Septic bursitis of elbow Splenomegaly (Acute) Syncope (Inactive) Venous insufficiency (chronic) (peripheral) (Acute) Visual hallucination (Acute) Vitamin D deficiency (Acute) Surgical History H/O inguinal hernia repair History of surgical removal of skin lesion 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 S/P tonsillectomy and adenoidectomy Family History Unknown Myocardial infarction Father Cardiac disorder Mother Colon cancer Denies family history of Ovarian cancer Prostate cancer Breast cancer Social History Preferred Language: Tongan Communication Ability: Effective Community Health Nurse Staff Required: No Beliefs That Will Affect Care: None marital status: Current Living Situation: Spouse current occupational status: retired Feels Safe at Home: Yes Smoking Status: Former smoker Second Hand Exposure: No ; Hx Alcohol Use: Yes Alcohol type: beer Hx Substance Use: No Review of Systems Review of Systems: All systems reviewed & are unremarkable except as noted in HPI & below No reports of fevers or chills. Some discomfort in the left lower extremity and notable erythema over a few weeks. He denies any eating or drinking problems. No change in his bowel or bladder habits. He has an occasional sense of palpitation when lying in bed at night but generally not at other times. Physical Exam Physical Exam: The patient is alert and oriented. Mood and affect appeared normal. He answered all questions appropriately. In wheelchair. HEENT: Pupils are equal and reactive to light and accommodation. Extraocular movements are intact. The sclerae are anicteric. Neuro: Cranial nerves intact (incomplete. Wearing a mask.) Neck: Patient's neck is supple. He has palpable carotid pulses bilaterally without bruits on auscultation. There is no evidence of jugular venous distention. The thyroid is not enlarged. Lungs: Clear to auscultation bilaterally. He has good air movement without use of accessory muscles. No rales wheezes or rhonchi. Cardiac: Heart demonstrates an irregular rate and rhythm. Normal S1 and S2. No murmurs on examination. Pulses: The patient has palpable radial pulses bilaterally that are equal in intensity Extremities: There was no evidence of hypoperfusion. There is no cyanosis or clubbing. Mild edema involving the left lower extremity. Skin: He has an erythematous rash on the left pretibial area. Some minor e xcoriations as well. Results & Data ([facility]) Vital Signs (Past 12 Hours) Vital Signs Temp Pulse Pulse Resp BP BP Pulse Ox 03/06/20 11:10 36.6 C 87 18 134/74 92 03/06/20 06:44 36.6 C 87 20 152/82 H 97 03/06/20 06:01 89 24 137/81 03/06/20 05:30 100 H 21 144/87 H 95 03/06/20 05:00 101 H 24 125/70 95 03/06/20 04:31 103 H 24 127/90 95 03/06/20 04:00 84 20 134/80 96 03/06/20 03:31 90 24 129/86 96 03/06/20 03:00 103 H 24 146/86 H 95 03/06/20 02:31 98 H 24 130/77 95 03/06/20 02:01 91 H 21 108/75 95 03/06/20 01:30 96 H 21 116/64 95 03/06/20 00:30 95 H 23 115/70 95 03/06/20 00:00 99 H 22 114/78 94 03/05/20 23:44 88 24 119/80 93 03/05/20 23:31 110 H 25 H Laboratory Results Abnormal Lab Results 03/05/20 03/05/20 03/05/20 23:40 23:40 23:40 WBC 11.55 H RBC 4.54 L Hgb 14.0 Hct 42.8 MCV 94.3 MCH 30.8 MCHC 32.7 RDW Std Deviation 50.1 H RDW Coeff of Marcia 14.5 Plt Count 160 MPV 10.5 H Immature Gran % (Auto) 0.1 Neut % (Auto) 80.4 Lymph % (Auto) 12.6 [place] % (Auto) 5.8 Eos % (Auto) 1.0 Baso % (Auto) 0.1 Neut # (Auto) 9.29 H Lymph # (Auto) 1.46 [place] # (Auto) 0.67 H Eos # (Auto) 0.11 Baso # (Auto) 0.01 Immature Gran # (Auto) 0.01 Sodium 142 Potassium 4.0 Chloride 107 Carbon Dioxide 30 Anion Gap 5.0 BUN 36 H Creatinine 1.33 Est Cr Clr Drug Dosing Not Reportable Est GFR ( Amer) 59.3 Est GFR (Non-Af Amer) 51.2 BUN/Creatinine Ratio 26.8 H Glucose 99 POC Glucose Calcium 8.3 L Phosphorus Magnesium Total Bilirubin 1.0 AST 12 L ALT 12 Alkaline Phosphatase 140 H Total Creatine Kinase 100 Troponin I < 0.015 Total Protein 6.4 Albumin 3.0 L Globulin 3.4 Albumin/Globulin Ratio 0.9 Urine Color Dark Yellow Urine Appearance Clear Urine pH 5.0 Ur Specific Pinson 1.027 Urine Protein 1+ H Urine Glucose (UA) Negative Urine Ketones Trace H Urine Blood Negative Urine Nitrite Negative Urine Bilirubin Negative Urine Urobilinogen Negative Ur Leukocyte Esterase Negative Urine WBC (Auto) 1-5 Urine RBC (Auto) 0-4 U Hyaline Cast (Auto) >30 H U Epithel Cells (Auto) 10-20 H Urine Bacteria (Auto) 1+ H Urine Mucus Present A 03/05/20 03/06/20 03/06/20 23:48 10:38 10:38 WBC 10.00 RBC 4.96 Hgb 15.5 Hct 47.2 MCV 95.2 MCH 31.3 MCHC 32.8 RDW Std Deviation 50.4 H RDW Coeff of Marcia 14.4 Plt Count 161 MPV 10.5 H Immature Gran % (Auto) 0.3 Neut % (Auto) 82.3 Lymph % (Auto) 10.3 [place] % (Auto) 5.9 Eos % (Auto) 1.0 Baso % (Auto) 0.2 Neut # (Auto) 8.23 H Lymph # (Auto) 1.03 L [place] # (Auto) 0.59 Eos # (Auto) 0.10 Baso # (Auto) 0.02 Immature Gran # (Auto) 0.03 H Sodium 141 Potassium 4.6 Chloride 109 H Carbon Dioxide 30 Anion Gap 2.0 L BUN 28 H Creatinine 1.09 Est Cr Clr Drug Dosing 62.3 Est GFR ( Amer) 75.5 Est GFR (Non-Af Amer) 65.1 BUN/Creatinine Ratio 25.5 H Glucose 79 POC Glucose 121 H Calcium 8.6 Phosphorus 1.9 L Magnesium 2.1 Total Bilirubin AST ALT Alkaline Phosphatase Total Creatine Kinase Troponin I Total Protein Albumin Globulin Albumin/Globulin Ratio Urine Color Urine Appearance Urine pH Ur Specific [place] Urine Protein Urine Glucose (UA) Urine Ketones Urine Blood Urine Nitrite Urine Bilirubin Urine Urobilinogen Ur Leukocyte Esterase Urine WBC (Auto) Urine RBC (Auto) U Hyaline Cast (Auto) U Epithel Cells (Auto) Urine Bacteria (Auto) Urine Mucus 03/06/20 10:38 WBC RBC Hgb Hct MCV MCH MCHC RDW Std Deviation RDW Coeff of Marcia Plt Count MPV Immature Gran % (Auto) Neut % (Auto) Lymph % (Auto) [place] % (Auto) Eos % (Auto) Baso % (Auto) Neut # (Auto) Lymph # (Auto) [place] # (Auto) Eos # (Auto) Baso # (Auto) Immature Gran # (Auto) Sodium Potassium Chloride Carbon Dioxide Anion Gap BUN Creatinine Est Cr Clr Drug Dosing Est GFR ( Amer) Est GFR (Non-Af Amer) BUN/Creatinine Ratio Glucose POC Glucose Calcium Phosphorus Cancelled Magnesium Cancelled Total Bilirubin AST ALT Alkaline Phosphatase Total Creatine Kinase Troponin I Total Protein Albumin Globulin Albumin/Globulin Ratio Urine Color Urine Appearance Urine pH Ur Specific [place] Urine Protein Urine Glucose (UA) Urine Ketones Urine Blood Urine Nitrite Urine Bilirubin Urine Urobilinogen Ur Leukocyte Esterase Urine WBC (Auto) Urine RBC (Auto) U Hyaline Cast (Auto) U Epithel Cells (Auto) Urine Bacteria (Auto) Urine Mucus Diagnostic Findings Chest x-ray obtained at admission did not reveal any acute cardiopulmonary findings Head CT did not demonstrate any acute findings EKG demonstrated atrial fibrillation and controlled ventricular rates Echocardiogram performed 08/24/2019 revealed low-normal systolic function with an estimated ejection fraction of 50-55 percent. Moderate LVH. Severe biatrial dilation. Moderate mitral regurgitation moderate tricuspid regurgitation. Holter monitor performed 08/21/2019 revealed overall controlled ventricular rates with periods of high ventricular rates intermittently. No significant pauses or episodes of bradycardia. No symptoms reported. PG Care Time/CCT Total # of Minutes Spent Total Time Spent with Patient: Total time spent is greater than 50% in coordination of care (as documented) at patient's floor/unit and/or counseling patient: Coding Level of Care Code 81128 Initial Inpt Care Lvl 3 Diagnoses Atrial fibrillation I48.2 Atrial fibrillation type: permanent Near syncope R55 Moderate mitral regurgitation I34.0 (1) Atrial fibrillation Atrial fibrillation type: permanent Qualified Code(s): I48.2 - Chronic atrial fibrillation
[2020-03-06] MEDS ORDERED: POTASSIUM PHOS 3 MMOL/1 ML INFUSION IV STA (11:37)
[2020-03-06] MEDS ORDERED: POTASSIUM PHOSPHATE 21 MMOL in SODIUM CHLORIDE 0.9% 500 ML IV ONE (11:45)
[2020-03-06] MEDS ORDERED: VANCOMYCIN HCL 1,250 MG in SODIUM CHLORIDE 0.9% 250 ML IV SCH ×2 (12:00→20:00)
--- NOTE | 2020-03-06 12:02 | Pharmacy Report ---
Pharmacy Abx Initial Consult - Date of Service March 06, 2020 - Pharmacy Dosing Scope Date of Consult: 03/06/2020 Consultation requested by: Dr. Peters Pharmacy is consulted to initiate Vancomycin IV dosing therapy, order appropriate labs and adjust drug dose/frequency. - Subjective The patient is a 79 year old M admitted on 03/06/20 03:30. - Objective Height: 6 ft Weight: 85.5 kg Vital Signs (Past 12hrs): Vital Signs Temp Pulse Pulse Resp BP BP Pulse Ox 03/06/20 11:10 36.6 C 87 18 134/74 92 03/06/20 06:44 36.6 C 87 20 152/82 H 97 03/06/20 06:01 89 24 137/81 03/06/20 05:30 100 H 21 144/87 H 95 03/06/20 05:00 101 H 24 125/70 95 03/06/20 04:31 103 H 24 127/90 95 03/06/20 04:00 84 20 134/80 96 03/06/20 03:31 90 24 129/86 96 03/06/20 03:00 103 H 24 146/86 H 95 03/06/20 02:31 98 H 24 130/77 95 03/06/20 02:01 91 H 21 108/75 95 03/06/20 01:30 96 H 21 116/64 95 03/06/20 00:30 95 H 23 115/70 95 03/06/20 00:00 99 H 22 114/78 94 Lab Results (24hrs): Laboratory Tests (24 Hours) 03/06/20 03/06/20 03/05/20 10:38 10:38 23:40 WBC 10.00 Neut # (Auto) 8.23 H Creatinine 1.09 1.33 Est Cr Clr Drug Dosing 62.3 Not Reportable Total Creatine Kinase 100 03/05/20 23:40 WBC 11.55 H Neut # (Auto) 9.29 H Creatinine Est Cr Clr Drug Dosing Total Creatine Kinase Micro Results: 03/06/20 10:51 Aerobic Blood Culture - Pending Blood Anaerobic Blood Culture - Pending 03/06/20 10:38 Aerobic Blood Culture - Pending Blood Anaerobic Blood Culture - Pending 03/05/20 23:40 Urine Culture - Pending Urine,Clean Catch - Risk Factors for Resistance * None - Assessment & Plan Assessment 79 year old M admitted secondary to worsening syncope, dizziness, weakness, confusion * PMHx significant for Parkinson's, neuropathy, chronic venous stasis * Presented to ER in [place] on Wednesday for syncope x 2. Concerned he may have serotonin syndrome. * LLE found to be erythematous, concerning for cellulitis. Doppler is negative for acute DVT. * WBCs 10k, Renal fxn at baseline, afebrile, cultures pending Plan Vancomycin for treatment of LLE Cellulitis Vancomycin IV * Patient meets criteria for vancomycin AUC dosing nomogram * AUC/ADRIEN is the preferred PK/PD target for vancomycin * Target AUC/ADRIEN = 400-600 * AUC guided dosing is effective and associated with decreased risk of nephrotoxicity * Vancomycin 1250 mg IV every 12 hours. Will monitor trough to assure AUC/ADRIEN is 400-600 Pharmacy will continue to follow and will adjust dose/frequency as necessary. Thank you.
--- NOTE | 2020-03-06 13:24 | Electrocardiogram Report ---
Test Reason : Blood Pressure : / mmHG Vent. Rate : 087 BPM Atrial Rate : 119 BPM P-R Int : 000 ms QRS Dur : 090 ms QT Int : 326 ms P-R-T Axes : 000 -60 033 degrees QTc Int : 392 ms Atrial fibrillation Left axis deviation Abnormal ECG When compared with ECG of 23-AUG-2019 16:03, Questionable change in QRS axis QT has shortened Confirmed by Humberto Mead ([id number]) on 03/06/2020 1:23:54 PM Referred By: REFERRED SELF Confirmed By:Humberto Mead
--- NOTE | 2020-03-06 14:32 | Neurology Consultation ---
Date of Consultation March 06, 2020 Assessment & Plan (1) Parkinson's disease: Efrem Perea is a 79 yo man w/ PMH of Parkinson's disease complicated by sialorrhea/dysautonomia/pseudobulbar affect/visual hallucinations, A. fib on Xarelto, hypertension, hypothyroidism, idiopathic polyneuropathy, moderate mitral regurgitation, moderate tricuspid regurgitation, splenomegaly, and Raynaud's disease who presents to [facility] after recurrent syncopal events. # Parkinson's disease complicated by sialorrhea/pseudobulbar affect/visual hallucinations and likely dysautonomia: Given his presentation and the fact that he has had Parkinson's disease for about 20 years, it is highly likely that he now has dysautonomia related to advanced PD. Recent weakness is likely exacerbated by suspected cellulitis. Will defer to primary team for treatment as needed. -From a cardiology standpoint, would see if he would be able to come off his atenolol to see if that helps with blood pressure control at all -I would recommend continuing his home Sinemet, rasagiline and pramipexole for now, but he should talk with Dr. Correia about whether weaning off 1 of these would be useful as they all can hypothetically cause orthostasis -Discussed with him about increasing fluid intake with goal of 64 to 80 ounces daily. Should also tried to have mild salt intake with each meal. -Once cellulitis is resolved, would recommend trying compression stockings and/or abdominal binder -PT should evaluate for the use of having a wheeled walker at home for safety -Can have outpatient dysautonomia testing to confirm suspected diagnosis -Could consider starting droxidopa 100 mg tid and check for supine hypertension -See if he can have follow-up with HOLDEN Parks in March to discuss this further Thank you for this interesting consult. Plan of care discussed with primary team. Please call or text with questions. (2) Visual hallucination: (3) Pseudobulbar affect: (4) Sialorrhea: (5) Near syncope: (6) Cellulitis: History of Present Illness Attending Physician: Preston Cortés DO History of Present Illness Efrem Perea is a 79 yo man w/ PMH of Parkinson's disease complicated by sialorrhea/dysautonomia/pseudobulbar affect/visual hallucinations, A. fib on Xarelto, hypertension, hypothyroidism, idiopathic polyneuropathy, moderate mitral regurgitation, moderate tricuspid regurgitation, splenomegaly, and Raynaud's disease who presents to [facility] after recurrent syncopal events. In the ED, he reported that he recently returned from his summer home in [facility]. While there he had been seen in the ED for weakness and recurrent syncope associated with falls. He was given IV fluids and discharged home. Recurrent syncope events continued to happen, prompting presentation to the ED. In the ED, he was afebrile, BP 105/53, heart rate 84, respiratory rate 18, satting 96% on room air. Labs notable for WBC 11.55, hemoglobin 14.0, platelets 160, BUN elevated at 36, creatinine 1.33, glucose 99, electrolytes within normal, LFTs within normal, CK 100, troponin negative, UA shows 1+ bacteria and 1+ proteins but is likely contaminated there is no nitrites or leuko-esterase. He did note having a rash on his left leg that has progressed since last week and now looks like cellulitis. He denied any urinary symptoms. EKG showed him in persistent A. fib. CT head independently reviewed and showed no hemorrhage or hypodensity, +SVID and generalized atrophy. He had lower extremity Dopplers that did not show any evidence of DVT. He follows with Dr. Correia as an outpatient and recently saw him on February 13, 2020. At that time, he was started on sertraline for ongoing mood issues after not being able to tolerate Nuplazid for ongoing hallucinations. No other recent changes to his Parkinson's medications. He reports that he has had these episodes for at least several months and has had only about 6 4 episodes where he falls to the floor since September. He reports that they only occur with exertion when he is standing, he will feel lightheaded briefly, followed by loss of muscle tone and falling to the floor. He denies true loss of consciousness and reports that he retains vision and cognition throughout the entire event that lasts only seconds. Denies any tongue biting, loss of bowel or bladder or convulsive movements with episodes. Does not feel like he is being pushed to the ground. He has already completed [facility] Parkinson's program and does know how to fall safely by lowering himself to the ground if he is able to. He is worried about possibly falling and breaking a bone or injuring himself in the future. He has also been seen by his wood lather's Dr. Marija HATCH (Michael Rae) this month for these episodes and does have a [employer] Linq device that shows brief episodes of RVR greater than 200 with 396 episodes of overt tachycardia noted (symptom of lightheadedness with associated only on one occasion house Brenda vargas with RVR up to 188 bpm). They believe that he may have dysautonomia related to Parkinson's contributing to his falls. Allergies Allergy/AdvReac Type Severity Reaction Status Date / Time No Known Allergies Allergy Verified 03/06/20 00:17 Home Medications Home Medications Medication Instructions Recorded Confirmed Type pramipexole 3 mg tablet,extended 3 mg PO HS #90 tab 09/04/19 03/06/20 Rx release 24 hr rasagiline 1 mg tablet 1 mg PO DAILY #90 tab 09/04/19 03/06/20 Rx entacapone 200 mg tablet 200 mg PO Q8H #270 tab 10/25/19 03/06/20 Rx digoxin 125 mcg (0.125 mg) tablet 125 mcg PO DAILY #90 tab 11/15/19 03/06/20 Rx levothyroxine 25 mcg tablet 25 mcg PO QAM #90 tab 01/30/20 03/06/20 Rx rivaroxaban 20 mg tablet 20 mg PO HS #90 tab 02/13/20 03/06/20 Rx sertraline 50 mg tablet 50 mg PO DAILY #30 tab 02/13/20 03/06/20 Rx atenolol 25 mg PO HS 03/06/20 03/06/20 History carbidopa-levodopa 1 tab PO QID 03/06/20 03/06/20 History cholecalciferol (vitamin D3) 50 mcg PO DAILY 03/06/20 03/06/20 History [Vitamin D3] Patient History Medical History (Updated 03/06/20 @ 13:25 by Bradley Michel MD) Arthralgia of multiple joints (Acute) Atrial fibrillation (Chronic) BPH (benign prostatic hyperplasia) (Acute) Delusion Dyspnea on exertion (Acute) Elevated PSA (Chronic) Hypertension (Chronic) Hypothyroidism, adult (Chronic) Idiopathic polyneuropathy (Acute) Lymphedema (Acute) Moderate mitral regurgitation (Acute) Moderate tricuspid regurgitation (Acute) Near syncope Parkinson's disease (Chronic) Parkinson's disease dementia Peripheral edema (Acute) Pneumonia (Inactive) Pseudobulbar affect Rapid atrial fibrillation (Resolved) Raynaud's disease (Acute) Septic bursitis of elbow Splenomegaly (Acute) Syncope (Inactive) Venous insufficiency (chronic) (peripheral) (Acute) Visual hallucination (Acute) Vitamin D deficiency (Acute) Surgical History H/O inguinal hernia repair History of surgical removal of skin lesion 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 S/P tonsillectomy and adenoidectomy Family History Unknown Myocardial infarction Father Cardiac disorder Mother Colon cancer Denies family history of Ovarian cancer Prostate cancer Breast cancer Social History Preferred Language: Arabic Communication Ability: Effective 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 Exam (Neuro) Physical Exam: General Exam: GEN: NAD, sitting in chair. HEENT: No conjunctival injection, no rhinorrhea. CV: RRR, no peripheral edema PULM: Nonlabored respirations on room air. Neuro Exam: MS: Awake and Alert. Oriented to person, place, and date. Speech fluent and appropriate with minimal dysarthria, no paraphasic errors. Language intact including naming, comprehension, repetition. Cognition and memory grossly intact. Attention intact. No neglect. CN: Visual mccurdy full. No extinction to double simultaneous stimuli. Unable to visualize optic discs well on fundoscopic exam. PERRLA OU. EOMI without nystagmus. Facial sensation intact to LT. Facial muscles full and symmetric. Hearing intact to conversation. Uvula midline with symmetric palatal elevation. Shoulder shrug normal. Tongue midline. +hypomimia. MOTOR: Normal bulk and tone. No pronator drift. BUE strength 5/5 at deltoids, biceps, triceps, wrist flexors and extensors, and hand grasp bilaterally. BLE strength 5-/5 at iliopsoas, hamstrings, quadriceps, tibialis anterior, and gastrocnemius bilaterally. Mild bradykinesia present. No resting tremor noted. REFLEXES: 1+ at biceps, triceps, brachioradialis, 1+ patella and absent Achilles bilaterally. Flexor plantar responses bilaterally. SENSORY: Intact to LT without extinction to double simultaneous stimuli. Vibration intact throughout (diminished mildly in BLEs up to the knees). COORDINATION: No dysmetria or ataxia on [id number] bilaterally. Normal Andrew bilaterally. GAIT: deferred given physical status/recurrent falls [facility]) Vital Signs (Past 12 Hours) Vital Signs Temp Pulse Pulse Resp BP BP Pulse Ox 03/06/20 11:10 36.6 C 87 18 134/74 92 03/06/20 06:44 36.6 C 87 20 152/82 H 97 03/06/20 06:01 89 24 137/81 03/06/20 05:30 100 H 21 144/87 H 95 03/06/20 05:00 101 H 24 125/70 95 03/06/20 04:31 103 H 24 127/90 95 03/06/20 04:00 84 20 134/80 96 03/06/20 03:31 90 24 129/86 96 03/06/20 03:00 103 H 24 146/86 H 95 03/06/20 02:31 98 H 24 130/77 95 PG Care Time/CCT Total # of Minutes Spent Total Time Spent with Patient: Total time spent is greater than 50% in coordination of care (as documented) at patient's floor/unit and/or counseling patient: Coding Level of Care Code 22251 Initial Inpt Care Lvl 3 Diagnoses Parkinson's disease G20 Visual hallucination R44.1 Pseudobulbar affect F48.2 Sialorrhea K11.7 Near syncope R55 Cellulitis L03.90
[2020-03-06] MEDS ORDERED: DIGOXIN 0.125 MG TAB PO SCH (16:00)
[2020-03-06] MEDS: cefTRIAXone SODIUM 2,000 MG in DEXTROSE 5% 50 ML IV SCH (16:23)
[2020-03-06] MEDS: RIVAROXABAN 20 MG TAB PO SCH (16:23)
--- NOTE | 2020-03-06 16:28 | Billing Data ---
Date of Service March 06, 2020 Coding Level of Care Code 57078 Subseq Hosp Care Lvl 3
--- NOTE | 2020-03-06 16:29 | Billing Data ---
Date of Service March 06, 2020 Coding Level of Care Code 46189 Subseq Obs Care Lvl 3 Comment obs - should be 226, disregard 233, thanks
[2020-03-06] MEDS ORDERED: AMIODARONE 200 MG TAB PO ONE (18:17)
[2020-03-06] MEDS ORDERED: PRAMIPEXOLE DIHYDROCHLORIDE 1 MG TAB PO SCH (21:00)
[2020-03-06] MEDS: PRAMIPEXOLE DIHYDROCHLO 0.5 MG TAB PO SCH (23:03)
[2020-03-07] MEDS: SODIUM CHLORIDE 0.9% 1000ML 1,000 ML IV SCH ×4 (00:23→22:47)
--- NOTE | 2020-03-07 01:40 | Billing Data ---
Date of Service March 07, 2020 Coding Level of Care Code 29422 Initial Inpt Care Lvl 3
[2020-03-07 06:35] LABS: Basophils # (auto) 0.01 K/uL (0-0.2); Basophils % (auto) 0.1 %; Eosinophils # (auto) 0.15 K/uL (0-0.5); Hematocrit (blood only) 39.3 % (42-52); Hemoglobin 12.8 g/dL (14.0-18.0); Immature Granulocytes # (auto) 0.01 K/uL (0.00-0.02); Immature Granulocytes % (auto) 0.1 %; Lymphocytes # (auto) 1.21 K/uL (1.2-3.4); Mean Corpuscular Hemoglobin 30.7 pg (25-34); Mean Corpuscular Hgb Conc 32.6 g/dL (32-36); Mean Corpuscular Volume 94.2 fL (80-100); Mean Platelet Volume 10.4 fL (7.4-10.4); Monocytes # (auto) 0.48 K/uL (0.11-0.59); Monocytes % (auto) 6.4 %; Neutrophils # (auto) 5.69 K/uL (1.4-6.5); Neutrophils % (auto) 75.4 %; Platelet Count 133 K/uL (130-400); RDW Coefficient of Variation 14.4 % (11.5-14.5); RDW Standard Deviation 49.2 fL (36.4-46.3); Red Blood Count 4.17 M/uL (4.7-6.1); White Blood Count 7.55 K/uL (4.8-10.8)
[2020-03-07] MEDS: ENTACAPONE 200 MG TAB PO SCH ×3 (06:38→21:18)
[2020-03-07] MEDS: LEVOTHYROXINE SODIUM 25 MCG TABLET PO SCH (06:38)
[2020-03-07 07:12] LABS: BUN Creatinine Ratio 24.8 (10-20); Creatinine Clr Calc Pharmacy 69.3 ml/min; Est GFR (African American) 85.8; Est GFR (Non-African American) 74.1; Potassium 4.4 mmol/L (3.5-5.1)
[2020-03-07] MEDS: CHOLECALCIFEROL 1,000 UNITS 25 MCG TAB PO SCH (08:33)
[2020-03-07] MEDS: AMIODARONE 200 MG TAB PO SCH ×2 (08:33→16:37)
[2020-03-07] MEDS: CARBIDOPA/LEVODOPA 25-250 1 EA TAB PO SCH ×4 (08:34→21:18)
[2020-03-07] MEDS: [UNRECOGNIZED DRUG - REMARK] SCH ×3 (08:34→21:48)
--- NOTE | 2020-03-07 11:59 | Cardiology Progress Note ---
Date of Service March 07, 2020 Assessment & Plan (1) Atrial fibrillation: He has permanent atrial fibrillation. On permanent anticoagulation. His overall rate control appears better today. Perhaps because his infection is responding to treatment. I think we will continue with our strategy for improved rate control with amiodarone. Given the appearance of this telemetry today do not believe he will require digoxin in addition to amiodarone. I would continue his usual amiodarone load with 400 mg twice daily for 10 days then reduce to 200 mg daily. We will see how this improves his overall rate control by monitoring his heart rate through his implanted device. (2) Near syncope: No symptoms today. Heart rates are better controlled although the did go up with activity. There is an unclear association between his tachycardia and symptoms. Hopefully with improved rate control will have a better understanding whether this contributes to his symptoms. (3) Moderate mitral regurgitation: Admission and Anticipated Discharge Date Admission Date: March 06, 2020 Subjective This morning the patient claims to feeling better than yesterday. He reported being ambulatory around his room with assistance and did not have his typical symptoms of presyncope or dizziness. No current sense of palpitations. Review of Systems Review of Systems: For HPI. No pain in the leg. Physical Exam Physical Exam: The patient is alert and oriented. Mood and affect appeared normal. He answered all questions appropriately. In wheelchair. HEENT: Pupils are equal and reactive to light and accommodation. Extraocular movements are intact. The sclerae are anicteric. Neuro: Cranial nerves intact Lungs: Clear to auscultation bilaterally. He has good air movement without use of accessory muscles. No rales wheezes or rhonchi. Cardiac: Heart demonstrates an irregular rate and rhythm. Normal S1 and S2. No murmurs on examination. Pulses: The patient has palpable radial pulses bilaterally that are equal in intensity Skin: Some mild edema and erythema in the left pretibial area. Improved from yesterday. Results & Data ([facility]) Vital Signs (Past 12 Hours) Vital Signs Temp Pulse Resp BP BP Pulse Ox 03/07/20 10:58 36.6 C 80 20 157/82 H 91 03/07/20 07:15 36.5 C 79 20 130/85 98 03/07/20 03:57 36.6 C 79 17 110/72 97 Laboratory Results Abnormal Lab Results 03/07/20 03/07/20 06:24 06:24 WBC 7.55 RBC 4.17 L Hgb 12.8 L Hct 39.3 L MCV 94.2 MCH 30.7 MCHC 32.6 RDW Std Deviation 49.2 H RDW Coeff of Marcia 14.4 Plt Count 133 MPV 10.4 Immature Gran % (Auto) 0.1 Neut % (Auto) 75.4 Lymph % (Auto) 16.0 [place] % (Auto) 6.4 Eos % (Auto) 2.0 Baso % (Auto) 0.1 Neut # (Auto) 5.69 Lymph # (Auto) 1.21 [place] # (Auto) 0.48 Eos # (Auto) 0.15 Baso # (Auto) 0.01 Immature Gran # (Auto) 0.01 Sodium 142 Potassium 4.4 Chloride 111 H Carbon Dioxide 29 Anion Gap 2.0 L BUN 24 H Creatinine 0.98 Est Cr Clr Drug Dosing 69.3 Est GFR ( Amer) 85.8 Est GFR (Non-Af Amer) 74.1 BUN/Creatinine Ratio 24.8 H Glucose 86 Calcium 8.0 L PG Care Time/CCT Total # of Minutes Spent Total Time Spent with Patient: Total time spent is greater than 50% in coordination of care (as documented) at patient's floor/unit and/or counseling patient: Coding Level of Care Code 36750 Subseq Hosp Care Lvl 3 Diagnoses Atrial fibrillation I48.2 Atrial fibrillation type: permanent Near syncope R55 Moderate mitral regurgitation I34.0 (1) Atrial fibrillation Atrial fibrillation type: permanent Qualified Code(s): I48.2 - Chronic atrial fibrillation
--- NOTE | 2020-03-07 12:34 | Hospitalist Progress Note ---
Date of Service March 07, 2020 Assessment & Plan (1) Cellulitis: Efrem Garcia is a 79y/o M w/ PMH significant for Parkinson's, Raynauds, HTN, BPH, A. fib Cellulitis vs Lymphadenitis: - tracking erythema from LLE to inner thigh, no evidence of abscess; demarcated on admission - discontinued Vancomycin and Zosyn; started Ceftriaxone 2g daily - likely exacerbated known syncopal episodes with h/o of Parkinson's - Neurology consulted: recent weakness likely exacerbated by suspected cellulitis; resume home Sinemet, rasagiline, and pramipexole - Cardiology consulted: stop digoxin and Atenolol; continue Amiodarone 400mg BID - continue to observe for retraction from original outlined infection A. fib: - permanent A. fib, was previously instructed to take a higher level of Digoxin given previously low Dig level, but stopped taking the higher dose after one dose - Digoxin level: 0.5 - Cardiology consulted: stop digoxin and Atenolol; continue Amiodarone 400mg BID Diet: regular DVT ppx: continue Xarelto Code: DNR/DNI Admission and Anticipated Discharge Date Admission Date: March 06, 2020 Supervising Physician Co-Signing Physician Notes I personally examined the patient and verified all monsivais points of history and exam, discussed case, and agree with decision making with Dr Michel. feeling better. leg doing better / redness and pain almost all resolved, and otherwise just generally feels better overall vitals noted nad heent nc at mmm breathing unlabored no accessory muscles good effort skin no rashes no pallor or icterus neuro less shaky and voice more smooth and even. LLE distal venous stasis changes, but area of erythema and tenderness has essentially resolved. cellulitis/lymphangitis - improved quickly - and continues to do well on rocephin. probably home tomorrow syncope - likely was parkinsons mediated (autonomic insufficiency most likely) but really worsened/exacerbated by above -- hopefully treating above will help; outpt f/u on parkinsons afib - working on better rate control, anticoagulated w xarelto. doubt this played a role in his event otherwise as above Subjective Feels considerably better this AM, has had some improvement in the redness and tenderness over leg. Review of Systems Review of Systems: All systems reviewed & are unremarkable except as noted in Subjective Physical Exam Constitutional: WD/WN, vitals as above Eyes: PERRL, conjunctivae normal, anicteric sclerae ENMT: external ear and nose normal, oropharynx normal Respiratory: normal respiratory effort, lungs clear to auscultation Cardiovascular: Rate/Rhythm: regular rate and + irregularly irregular Heart Sounds: no gallop, no murmur and no cardiac rub Extremities: no pedal edema Gastrointestinal (Abdomen): normal bowel sounds, soft, nontender, no hepatosplenomegaly Musculoskeletal: no cyanosis or clubbing, extremities motor strength 5/5 Skin: + rash (predominant over LLE with tracking up into groin), + induration and + erythema (retracting from previous line of demarcation) Neurologic: patellar DTR's 2+ bilat, sensation intact Psychiatric: A+Ox3, euthymic affect Lymphatic: no lymphadenopathy Results & Data Results & Data ([facility]) Vital Signs (Past 12 Hours) Vital Signs Temp Pulse Resp BP BP Pulse Ox 03/07/20 10:58 36.6 C 80 20 157/82 H 91 03/07/20 07:15 36.5 C 79 20 130/85 98 03/07/20 03:57 36.6 C 79 17 110/72 97 Laboratory Results 03/07/20 03/07/20 Range/Units 06:24 06:24 WBC 7.55 (4.8-10.8) K/uL RBC 4.17 L (4.7-6.1) M/uL Hgb 12.8 L (14.0-18.0) g/dL Hct 39.3 L (42-52) % MCV 94.2 (80-100) fL MCH 30.7 (25-34) pg MCHC 32.6 (32-36) g/dL RDW Std Deviation 49.2 H (36.4-46.3) fL RDW Coeff of Marcia 14.4 (11.5-14.5) % Plt Count 133 (130-400) K/uL MPV 10.4 (7.4-10.4) fL Immature Gran % (Auto) 0.1 % Neut % (Auto) 75.4 % Lymph % (Auto) 16.0 % [place] % (Auto) 6.4 % Eos % (Auto) 2.0 % Baso % (Auto) 0.1 % Neut # (Auto) 5.69 (1.4-6.5) K/uL Lymph # (Auto) 1.21 (1.2-3.4) K/uL [place] # (Auto) 0.48 (0.11-0.59) K/uL Eos # (Auto) 0.15 (0-0.5) K/uL Baso # (Auto) 0.01 (0-0.2) K/uL Immature Gran # (Auto) 0.01 (0.00-0.02) K/uL Sodium 142 (136-145) mmol/L Potassium 4.4 (3.5-5.1) mmol/L Chloride 111 H (98-107) mmol/L Carbon Dioxide 29 (21-32) mmol/L Anion Gap 2.0 L (3-11) BUN 24 H (7-18) mg/dl Creatinine 0.98 (0.6-1.4) mg/dl Est Cr Clr Drug Dosing 69.3 ml/min Est GFR ( Amer) 85.8 Est GFR (Non-Af Amer) 74.1 BUN/Creatinine Ratio 24.8 H (10-20) Glucose 86 (70-99) mg/dl Calcium 8.0 L (8.5-10.1) mg/dl Medications Administered Current Inpatient Medications Acetaminophen (Tylenol) 650 mg PO Q4H PRN PRN Reason: pain/fever Stop: 04/05/20 06:34 Al Hydrox/Mg Hydrox/Simethicone (Maalox) 30 ml PO Q6H PRN PRN Reason: Dyspepsia Stop: 04/05/20 06:34 Amiodarone HCl (Cordarone) 400 mg PO BIDM [facility] Stop: 04/06/20 07:59 Last Admin: 03/07/20 08:33 Dose: 400 mg Documented by: Carbidopa/Levodopa (Sinemet 25/250mg) 1 tab PO QID [facility] Stop: 04/05/20 08:59 Last Admin: 03/07/20 08:34 Dose: 1 tab Documented by: Digoxin (Lanoxin) 0.125 mg PO DAILY@1600 [facility] Stop: 04/05/20 15:59 Last Admin: 03/06/20 16:00 Dose: Not Given Documented by: Entacapone (Comtan) 200 mg PO Q8 [facility] Stop: 04/05/20 07:59 Last Admin: 03/07/20 06:38 Dose: 200 mg Documented by: Sodium Chloride (Nss 1000ml) 1,000 mls @ 125 mls/hr IV .Q8H [facility]HA Stop: 04/04/20 22:44 Last Admin: 03/07/20 06:39 Dose: 125 mls/hr Documented by: Ceftriaxone Sodium 2,000 mg/ (Dextrose) 70 mls @ 100 mls/hr IV DAILY@1600 [facility]HA; Protocol Stop: 03/13/20 15:59 Last Infusion: 03/06/20 17:15 Dose: Infused Documented by: Levothyroxine Sodium (Synthroid) 25 mcg PO DAILYBB [facility] Stop: 04/05/20 06:44 Last Admin: 03/07/20 06:38 Dose: 25 mcg Documented by: Magnesium Hydroxide (Milk Of Magnesia) 30 ml PO Q6H PRN PRN Reason: Constipation Stop: 04/05/20 06:34 Miscellaneous (Order Awaiting Action) 1 ea N/A QS [facility] Stop: 04/05/20 07:59 Last Admin: 03/07/20 08:34 Dose: Not Given Documented by: Ondansetron HCl (Zofran) 4 mg IV Q6H PRN PRN Reason: Nausea Stop: 04/05/20 06:34 Polyethylene Glycol (Miralax Powder Packet) 17 gm PO DAILY PRN PRN Reason: Constipation Stop: 04/05/20 06:34 Pramipexole Dihydrochloride (Mirapex) 3 mg PO HS [facility] Stop: 04/05/20 20:59 Last Admin: 03/06/20 23:03 Dose: 3 mg Documented by: Rivaroxaban (Xarelto) 20 mg PO QDD [facility] Stop: 04/05/20 16:29 Last Admin: 03/06/20 16:23 Dose: 20 mg Documented by: Vitamin D (Vitamin D3) 2,000 units PO DAILY [facility] Stop: 04/05/20 08:59 Last Admin: 03/07/20 08:33 Dose: 2,000 units Documented by: Resident Activity Tracking Resident Involvement: Resident Care Provided Care Provided: Adult [facility]
--- NOTE | 2020-03-07 15:24 | Neurology Progress Note ---
Date of Service March 07, 2020 Assessment & Plan (1) Parkinson's disease: Efrem Perea is a 79 yo man w/ PMH of Parkinson's disease complicated by sialorrhea/dysautonomia/pseudobulbar affect/visual hallucinations, A. fib on Xarelto, hypertension, hypothyroidism, idiopathic polyneuropathy, moderate mitral regurgitation, moderate tricuspid regurgitation, splenomegaly, and Raynaud's disease who presents to [facility] after recurrent syncopal events. # Parkinson's disease complicated by sialorrhea/pseudobulbar affect/visual hallucinations and likely dysautonomia: Given his presentation and the fact that he has had Parkinson's disease for about 20 years, it is highly likely that he now has dysautonomia related to advanced PD. Recent weakness is likely exacerbated by suspected cellulitis. Will defer to primary team for treatment of cellulitis. - has changed from atenolol/digoxin to amiodarone for rate control per cardiology recs -Continue his home Sinemet, rasagiline and pramipexole for now, he should talk with Dr. Correia about whether weaning off 1 of these would be useful as they all can hypothetically cause orthostasis (could consider coming off of rasagiline +/- pramipexole and trial nourianz instead) -Discussed with him about increasing fluid intake with goal of 64 to 80 ounces daily. Should also tried to have mild salt intake with each meal. -Once cellulitis is resolved, would recommend trying compression stockings and/or abdominal binder -PT should evaluate for the use of having a wheeled walker at home for safety -Can have outpatient dysautonomia testing to confirm suspected diagnosis -Recommend starting droxidopa 100 mg tid while admitted and checking for supine hypertension (would elevate head of bed if supine HTN is noted) -See if he can have follow-up with HOLDEN Parks in March to discuss this further Thank you for this interesting consult. Plan of care discussed with primary team. Please call or text with questions. (2) Visual hallucination: (3) Pseudobulbar affect: (4) Sialorrhea: (5) Near syncope: (6) Cellulitis: Admission and Anticipated Discharge Date Admission Date: March 06, 2020 Subjective NAEs overnight. Little bit more confused this afternoon than it was yesterday but otherwise denies any complaints at this time. Being transitioned to amiodarone for rate control. Review of Systems Review of Systems: 14 point review of systems completed and negative except as in HPI. Results & Data ([facility]) Vital Signs (Past 12 Hours) Vital Signs Temp Pulse Resp BP BP Pulse Ox 03/07/20 15:04 36.9 C 82 20 166/97 H 94 03/07/20 10:58 36.6 C 80 20 157/82 H 91 03/07/20 07:15 36.5 C 79 20 130/85 98 03/07/20 03:57 36.6 C 79 17 110/72 97 Exam (Neuro) Physical Exam: General Exam: GEN: NAD, sitting in chair. HEENT: No conjunctival injection, no rhinorrhea. CV: RRR, no peripheral edema PULM: Nonlabored respirations on room air. Neuro Exam: MS: Awake and Alert. Oriented to person, place, and date. Speech fluent and appropriate with minimal dysarthria, no paraphasic errors. Language intact including naming, comprehension, repetition. Cognition and memory grossly intact. Attention intact. No neglect. CN: Visual mccurdy full. No extinction to double simultaneous stimuli. Unable to visualize optic discs well on fundoscopic exam. PERRLA OU. EOMI without nystagmus. Facial sensation intact to LT. Facial muscles full and symmetric. Hearing intact to conversation. Uvula midline with symmetric palatal elevation. Shoulder shrug normal. Tongue midline. +hypomimia. MOTOR: Normal bulk and tone. No pronator drift. BUE strength 5/5 at deltoids, biceps, triceps, wrist flexors and extensors, and hand grasp bilaterally. BLE strength 5-/5 at iliopsoas, hamstrings, quadriceps, tibialis anterior, and gastrocnemius bilaterally. Mild bradykinesia present. No resting tremor noted. REFLEXES: 1+ at biceps, triceps, brachioradialis, 1+ patella and absent Achilles bilaterally. Flexor plantar responses bilaterally. SENSORY: Intact to LT without extinction to double simultaneous stimuli. Vibration intact throughout (diminished mildly in BLEs up to the knees). COORDINATION: No dysmetria or ataxia on [id number] bilaterally. Normal Andrew bilaterally. GAIT: deferred given physical status/recurrent falls PG Care Time/CCT Total # of Minutes Spent Total Time Spent with Patient: Total time spent is greater than 50% in coordination of care (as documented) at patient's floor/unit and/or counseling patient: Coding Level of Care Code 92764 Subseq Hosp Care Lvl 3 Diagnoses Parkinson's disease G20 Visual hallucination R44.1 Pseudobulbar affect F48.2 Sialorrhea K11.7 Near syncope R55 Cellulitis L03.90
[2020-03-07] MEDS: cefTRIAXone SODIUM 2,000 MG in DEXTROSE 5% 50 ML IV SCH (16:35)
[2020-03-07] MEDS: RIVAROXABAN 20 MG TAB PO SCH (16:37)
[2020-03-07] MEDS: PRAMIPEXOLE DIHYDROCHLO 0.5 MG TAB PO SCH (21:18)
[2020-03-08] MEDS: LEVOTHYROXINE SODIUM 25 MCG TABLET PO SCH (06:40)
[2020-03-08] MEDS: ENTACAPONE 200 MG TAB PO SCH ×2 (06:40→15:00)
[2020-03-08] MEDS: SODIUM CHLORIDE 0.9% 1000ML 1,000 ML IV SCH (06:41)
[2020-03-08] MEDS ORDERED: VANCOMYCIN TROUGH ONE (07:30)
[2020-03-08] MEDS: AMIODARONE 200 MG TAB PO SCH (08:35)
[2020-03-08] MEDS: CHOLECALCIFEROL 1,000 UNITS 25 MCG TAB PO SCH (08:35)
[2020-03-08] MEDS: [UNRECOGNIZED DRUG - REMARK] SCH (08:35)
[2020-03-08] MEDS: CARBIDOPA/LEVODOPA 25-250 1 EA TAB PO SCH ×2 (08:35→15:00)
[2020-03-08] MEDS ORDERED: cefTRIAXone SODIUM 2,000 MG in DEXTROSE 5% 50 ML IV STA (08:47)
--- NOTE | 2020-03-08 10:13 | Discharge Summary ---
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 They include syncope, dizziness, weakness, confusion, increased sleep, fatigue and loss of appetite, and night sweats. He had gone to [facility] in [facility] Wednesday for fainting 2X. Mr. Perea was concerned that he may have Serotonin syndrome. Interrogation of his Medtronic LINQ 02/15 shows: -- A-Fib. -- Brief episodes of RVR at times with rates up to > 200 bpm. -- 396 episodes of tachycardia (HR >155 bpm) -- One cardiac pause lasting 3 seconds -- asymptomatic. -- Symptom of Lightheadedness on the one described occasion correlated with atrial fibrillation at a rate of 188 bpm. -- He has multiple episodes of RVR at similar rates that are completely asymptomatic. His Digoxin level was drawn 02/15/2020 and was subtherapeutic at 0.3 ng/ml -- he had only been taking 62.5 mcg. Patient was advised to increase Digoxin to 125 mcg daily which will hopefully improve his rate control. Neurology last saw him on 02/12 "Patient feels his balance has been getting a little bit worse over the last 6 months. He tries to be very cautious it is not falling. He denies any headaches or pain. His is present for this to way video visit and she helps add to the history. He will take naps during the day most days. He has occasional tremor in his left lower extremity. He has some lightheadedness with standing and walking but he is not fainting. His memory is slowly getting a little bit worse particularly with short-term memory. His long-term memory is more stable. He has hallucinations seeing small people, from time to time during the day. These do not bother him that much. He tried Nuplazid but this made the hallucinations worse. He then stop that 2 weeks ago and is back to his regular baseline. He also has a significant paranoia about things going on in the neighborhood particularly against him. He can't seem to shake this and the medication did not help this either." Principal Diagnosis Cellulitis Discharge Exam Constitutional WD/WN, vitals as above Eyes PERRL, conjunctivae normal, anicteric sclerae ENMT external ear and nose normal, oropharynx normal Respiratory normal respiratory effort, lungs clear to auscultation Cardiovascular Rate/Rhythm: regular rate and + irregularly irregular Heart Sounds: no gallop, no murmur and no cardiac rub Extremities: no pedal edema Gastrointestinal (Abdomen) normal bowel sounds, soft, nontender, no hepatosplenomegaly Musculoskeletal no cyanosis or clubbing, extremities motor strength 5/5 Skin + induration and + erythema (most significant over anterior chambers) Neurologic patellar DTR's 2+ bilat, sensation intact Psychiatric A+Ox3, euthymic affect Lymphatic no lymphadenopathy Discharge Data Allergies Allergy/AdvReac Type Severity Reaction Status Date / Time No Known Allergies Allergy Verified 03/06/20 00:17 Consultations 03/06/20 01:29 ED Decision to Admit Stat 03/06/20 06:35 Consult Cardiology Routine Consult Neurology Routine Ordered Studies 03/05/20 22:55 CT head/brain wo con Urgent 03/06/20 08:30 US venous doppler LE BI Stat 03/08/20 10:04 US carotid doppler BI Routine Hospital Course (1) Cellulitis: Efrem Perea is a 79y/o M w/ PMH significant for Parkinson's, Ray nauds, HTN, BPH, A. fib Cellulitis vs Lymphadenitis: - tracking erythema from LLE to inner thigh, no evidence of abscess; demarcated on admission - discontinued Vancomycin and Zosyn; started Ceftriaxone 2g daily - likely exacerbated known syncopal episodes with h/o of Parkinson's - continue Keflex 500mg QID for three additional days following discharge A. fib: - permanent A. fib, was previously instructed to take a higher level of Digoxin given previously low Dig level, but stopped taking the higher dose after one dose - Cardiology consulted: stop digoxin and Atenolol; - continue Amiodarone 400mg BID for ten days, before reduction to 200mg daily - follow-up with Cardiology on 04/03 Parkinson's Disease: - follow-up with Neurology on 03/28 - considering start of Northera (droxidopa) for concern of autonomic disfunction Total Time Total Time Spent Total Time Spent (In Minutes): <30 Discharge Plan Discharge Items Patient Disposition: Home - Self-Care Reason For Visit: WEAKNESS Discharge Diagnosis: Cellulitis Activity: Per Instructions section Non-emergency contact: Primary Care Provider Call non-emergency contact if: you have any medication questions, your symptoms worsen and your wound has increased redness Follow-up/Referrals: Jeffery Daniel MD [Primary Care Provider] - 03/14/20 11:00 am (Please, follow up at Dr. Daniel's office with his associate, Roxanne Wills PA-C, on March 14 at 11:00 am. *If you need to change this appointment, call their office at [phone].) Michael Rae PA-C [Physician International Coordinator] - 04/03/20 2:30 pm (Please, follow up at [facility] Cardiology Office with Michael Rae PA-C on WednesdayApril 03 at 2:30 pm. *The office is located in [address] of [facility], next to [facility]. If you need to change this appointment, call the office at [phone].) Randolph Correia MD [Physician] - 03/28/20 1:00 pm (Please, follow up at [facility] Neurology Office with Dr. Correia's associate, Maria Esther Neri PA-C, on March 28 at 1:00 pm. *If you need to change this appointment, call their office at [phone].) Diet: Regular Addtl Attending Provider Instructions: You were seen and admitted following continued episodes of weakness and falls; during this admission it was noted that you had a skin infection on your left leg, that likely increased the weakness and increased concern for falls. For this you were started on antibiotics, that improved the infection; now that you are being discharged you should continue the Keflex four times a day for the next three days. Additionally, we made changes to your medications for your Atrial fibrillation; we have stopped your Atenolol and your Digoxin, and have in place started you on Amiodarone that you will take 400mg twice a day for the next 10 days before taking 200mg once a day afterwards. In the next two weeks you should have follow-up with the Cardiology group, and you will have an appointment with Maria Esther Neri of the Neurology group on 03/28 for follow-up. Pending Studies at Discharge: No Stand-Alone Forms: My [facility], Smoking Cessation Medications and DC Order Prescriptions: New amiodarone 200 mg Tablet 400 mg PO BIDM 12 Days Qty: 48 RF: 0 cephalexin [Keflex] 500 mg capsule 500 mg PO Q6H 3 Days Qty: 12 RF: 0 Continued pramipexole 3 mg tablet extended release 24 hr 3 mg PO HS Qty: 90 RF: 3 rasagiline 1 mg tablet 1 mg PO DAILY Qty: 90 RF: 3 Xarelto 20 mg tablet 20 mg PO HS Qty: 90 RF: 3 entacapone 200 mg tablet 200 mg PO Q8H Qty: 270 RF: 0 levothyroxine 25 mcg tablet 25 mcg PO QAM Qty: 90 RF: 3 cholecalciferol (vitamin D3) [Vitamin D3] 50 mcg (2,000 unit) Capsule 50 mcg PO DAILY RF: 0 carbidopa-levodopa 25-250 mg tablet 1 tab PO QID RF: 0 Discontinued digoxin 125 mcg (0.125 mg) tablet 125 mcg PO DAILY Qty: 90 RF: 3 sertraline 50 mg tablet 50 mg PO DAILY Qty: 30 RF: 1 atenolol 50 mg tablet 25 mg PO HS RF: 0 Discharge Orders: Discharge Order (Routine); Ordered 03/08/20 Ordered By: Bradley Michel Admission Data Admit Date/Time: 03/07/20 16:10 Attending Provider: Preston Cortés Admit Provider: Dudley Peters Primary Care Provider: Jeffery Daniel Other Providers: Lucian Salas ; Nikos Garsia ; Randolph Correia Other Interventions: Discharge Summary Assessment (RN) Last Done: 03/08/20 14:49 DC Date/Time DO NOT enter until pt leaves facility: 03/08/20 16:20 Supervising Physician Co-Signing Physician Notes I personally examined the patient and verified all monsivais points of history and exam, discussed case, and agree with decision making with Dr Michel. feeling better. leg doing better, feels up to going home vitals noted nad heent nc at mmm breathing unlabored no accessory muscles good effort skin no rashes no pallor or icterus neuro less shaky and voice more smooth and even. LLE distal venous stasis changes, but area of erythema and tenderness has essentially resolved. cellulitis/lymphangitis - improved quickly - and continues to do well on rocephin - stable for home on cefdinir syncope - likely was parkinsons mediated (autonomic insufficiency most likely) but really worsened/exacerbated by above -- hopefully treating above will help; outpt f/u on parkinsons -- outpt meds as per neurology / neuro follow up scheduled. afib -cardiology input appreciated, rate better controlled. now stable for discharge with this as well otherwise as above Resident Activity Tracking Resident Involvement: Resident Care Provided Care Provided: Adult Hospital Medicine
--- NOTE | 2020-03-08 10:43 | Cardiology Progress Note ---
Date of Service March 08, 2020 Assessment & Plan (1) Atrial fibrillation: He has permanent atrial fibrillation. His overall heart rates yesterday well controlled. This is more likely reflection of the improvement in his infection and overall clinical condition rather than the amiodarone. However, amiodarone still seems to be an attractive agent for long-term rate control given the concerns over orthostasis and autonomic dysfunction. I will continue on 400 milligrams twice daily for another week and then reduce the dose to 200 milligrams daily. He should follow up in our clinic around that time for re- evaluation of his heart rates. He should continue his anticoagulation. (2) Near syncope: No symptoms today. Unclear how this relates to his atrial fibrillation. All of his symptoms appear to have improved with treatment of his infection. (3) Moderate mitral regurgitation: Admission and Anticipated Discharge Date Admission Date: March 07, 2020 Subjective This morning patient claims he feeling well. He states that his strength is improved and he perform some ambulation yesterday without symptoms of dizziness or lightheadedness. He is anxious to perform more ambulation today. Review of Systems Review of Systems: Mild pain at the site of infection on the left leg. Physical Exam Physical Exam: The patient is alert and oriented. Mood and affect appeared normal. He answered all questions appropriately. In wheelchair. HEENT: Pupils are equal and reactive to light and accommodation. Extraocular movements are intact. The sclerae are anicteric. Neuro: Cranial nerves intact Lungs: Clear to auscultation bilaterally. He has good air movement without use of accessory muscles. No rales wheezes or rhonchi. Cardiac: Heart demonstrates an irregular rate and rhythm. Normal S1 and S2. No murmurs on examination. Pulses: The patient has palpable radial pulses bilaterally that are equal in intensity Skin: Some mild edema and erythema in the left pretibial area. Results & Data ([facility]) Vital Signs (Past 12 Hours) Vital Signs Temp Pulse Pulse Resp BP BP Pulse Ox 03/08/20 07:24 36.8 C 75 22 171/107 H 92 03/08/20 04:10 36.5 C 71 18 125/78 92 03/08/20 01:37 72 03/07/20 22:59 36.7 C 89 18 146/79 H 93 ECG Additional Comments: I reviewed the results of his telemetry monitoring. Atrial fibrillation with controlled ventricular rates. PG Care Time/CCT Total # of Minutes Spent Total Time Spent with Patient: Total time spent is greater than 50% in coordination of care (as documented) at patient's floor/unit and/or counseling patient: Coding Level of Care Code 20123 Subseq Hosp Care Lvl 2 Diagnoses Atrial fibrillation I48.2 Atrial fibrillation type: permanent Near syncope R55 Moderate mitral regurgitation I34.0 (1) Atrial fibrillation Atrial fibrillation type: permanent Qualified Code(s): I48.2 - Chronic atrial fibrillation
--- NOTE | 2020-03-08 11:43 | Ultrasound Report ---
US carotid doppler BI HISTORY: Trauma falls COMPARISON: None. TECHNIQUE: Real-time, grayscale, and color Doppler sonography of the carotid arteries was performed. Imaging reviewed in the transverse and longitudinal planes. All measurements were calculated based on NASCET criteria. FINDINGS: Antegrade flow is seen in the bilateral vertebral arteries. The brachial pressures are hemodynamically similar. The peak systolic velocity within the right ICA is 70. The right systolic ratio is 1.3. The peak systolic velocity within the left ICA is 51. The left systolic ratio is 0.7. IMPRESSION: No hemodynamically significant stenosis seen within the carotid arteries. ACT 112: Negative or not required by law. The above report was generated using voice recognition software. It may contain grammatical, syntax or spelling errors. Electronically signed by: Jose Juan Lemus M.D. 03/08/2020 11:42 AM
[2020-03-08] MEDS: cefTRIAXone SODIUM 2,000 MG in DEXTROSE 5% 50 ML IV SCH (12:41)
--- NOTE | 2020-03-08 19:04 | Billing Data ---
Date of Service March 08, 2020 Coding Level of Care Code D/C Day Management <30 mins
== END 2020-03-08 16:20 | disposition home or self-care (01) | DRG 92 ==
LOC: ED 20:39 → 2W 20:39 → SUATTDRO 03-06 03:30 → 2W 03-06 05:38

== ENCOUNTER 2021-03-27 20:40 | Observation (INO) ==
[2021-03-27] MEDS ORDERED: SODIUM CHLORIDE 0.9% 1000ML 1,000 ML IV SCH (21:30)
[2021-03-27 22:06] LABS: Basophils # (auto) 0.01 K/uL (0-0.2); Basophils % (auto) 0.1 %; Eosinophils # (auto) 0.01 K/uL (0-0.5); Eosinophils % (auto) 0.1 %; Hematocrit (blood only) 41.3 % (42-52); Hemoglobin 13.1 g/dL (14.0-18.0); Immature Granulocytes # (auto) 0.02 K/uL (0.00-0.02); Immature Granulocytes % (auto) 0.2 %; Lymphocytes # (auto) 0.24 K/uL (1.2-3.4); Lymphocytes % (auto) 2.2 %; Mean Corpuscular Hemoglobin 30.2 pg (25-34); Mean Corpuscular Hgb Conc 31.7 g/dL (32-36); Mean Corpuscular Volume 95.2 fL (80-100); Mean Platelet Volume 10.1 fL (7.4-10.4); Monocytes # (auto) 0.48 K/uL (0.11-0.59); Monocytes % (auto) 4.3 %; Neutrophils # (auto) 10.39 K/uL (1.4-6.5); Neutrophils % (auto) 93.1 %; Platelet Count 145 K/uL (130-400); RDW Coefficient of Variation 14.9 % (11.5-14.5); RDW Standard Deviation 52.3 fL (36.4-46.3); Red Blood Count 4.34 M/uL (4.7-6.1); White Blood Count 11.15 K/uL (4.8-10.8)
--- NOTE | 2021-03-27 22:16 | Emergency Department Note ---
Impression & Plan Weakness ED Provider Note INFORMANT: Patient ED PROVIDER(S): Lewis Greco MD CHIEF COMPLAINT: Weakness PLAN: Disposition: Admitted Condition: Good Outpatient prescription management: none Referral: None MEDICAL DECISION MAKING: Patient presented to the emergency department because of progressive weakness. He has a nonfocal examination. He was afebrile. He was found to have a mild leukocytosis. ECG showed A. fib which is chronic for the patient. Monitoring revealed A. fib but rate was relatively controlled. The patient was hydrated but then stopped. His BNP is significantly elevated which is new for the patient. This does raise some concerns for CHF. The patient does note that he has gone through his personal training a few days ago and had no significant shortness of breath or difficulty. The patient's troponin was negative. Urinalysis was obtained did not reveal any obvious signs of infection. Chest x- ray did not reveal any focal infiltrate and he has no complaint of cough or congestion. The patient underwent head CT and this was negative. Given his p rogressive weakness and history further management in the hospital was felt to be appropriate. The patient and did not feel that he was well enough to go home. Consultation was made with Dr. Lucian Salas of the [facility] service. Patient was evaluated in the ER for further management. Triage Nursing notes reviewed and agree them. Vital Signs: reviewed and remarkable for no significant abnormalities Differential diagnosis: Infection, dehydration, metabolic abnormality, hypo/hyperglycemia, electrolyte disturbance, anemia, hypoxia, cardiac sources, intracerebral event, toxicologic, neurologic, as well as other pathologies. Diagnostics interpreted by me: ECG: Twelve-lead ECG reveals atrial fibrillation at 99 bpm. Left axis deviation. Septal Q waves present. No ST elevation. Cardiac Monitoring: Cardiac monitoring ordered by me: The patient was placed on continuous cardiac monitoring and observed. It revealed atrial fibrillation at 105 bpm. Imaging studies: Chest x-ray. Findings: A chest x-ray was performed and revealed no pneumothorax, effusion, infiltrate, pulmonary edema, free air under the diaphragm, or wide mediastinum. Impression: No acute disease. Head CT: A noncontrast CT scan of the head was performed and was negative for tumor, fracture, intracranial hemorrhage, or other acute pathology. HPI: The patient is a 80 year old male who presents to the Emergency Room with complaints of increased weakness. This started 5 days ago and is worsening. The patient also notes the following associated symptoms, global weakness, confusion, SOB. The patient has found no relieving factors. Current pain is rated as 0/10. Pt denies LOC, headache, fevers, chills, diaphoresis, visual changes, neck pain, chest pain, nausea, vomiting, abdominal pain, back pain, melena, hematochezia, urinary symptoms, numbness, lymphadenopathy, rash, or other complaints. ROS: See above HPI for pertinent positives & negatives. A total of 10 systems reviewed and were otherwise negative. PAST MEDICAL HISTORY:See Below , Parkinson, AFIB PAST SURGICAL HISTORY:See Below, FAMILY HISTORY:See Below SOCIAL HISTORY:See Below, HOME MEDICATIONS:See Below ALLERGIES:See Below VITALS:See Below PHYSICAL EXAMINATION: GENERAL: Awake, alert, tired-appearing, in no distress HENT: Normocephalic, atraumatic. Oropharynx unremarkable. EYES: Normal conjunctiva. Sclera non-icteric. NECK: Inspection normal. Non-tender. Supple. No nuchal rigidity. FROM. No masses. RESPIRATORY: Clear to auscultation. No wheezes. No rales. Normal respiratory effort. CARDIAC: Normal rate. Normal rhythm. No murmurs. No rubs. Extremities warm and well perfused. Pulses equal. No JVD. GI: Soft, non-distended. No tenderness to palpation. No rebound or guarding. No masses. RECTAL: Deferred. MUSCULOSKELETAL: Atraumatic. Chest examination reveals no tenderness. The back is symmetrical on inspection without obvious abnormality. There is no CVA tenderness to palpation. No joint edema. LOWER EXTREMITIES: Calves are equal size bilaterally and non-tender. No edema. No discoloration. NEURO: Normal sensorium. Globally weak, no focal sensory or motor deficits noted. Masked facies. SKIN: No rash or jaundice noted. Lewis Greco MD Past Med/Surg History Medical History (Updated 03/28/21 @ 01:21 by Gena Dominique DO) Atrial fibrillation dx 20 years - follows w/ Dr. Dutton -- on xarelto BPH (benign prostatic hyperplasia) Constipation Dysphagia History of anesthesia reaction urinary retention History of cardioversion Hypertension Hypothyroidism Idiopathic polyneuropathy Moderate mitral regurgitation Moderate tricuspid regurgitation Parkinson's disease Pseudobulbar affect Raynaud's disease Status post placement of implantable loop recorder Venous insufficiency (chronic) (peripheral) Vitamin D deficiency Surgical History H/O inguinal hernia repair History of colonoscopy History of surgical removal of skin lesion 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 S/P tonsillectomy and adenoidectomy Family History Unknown Myocardial infarction Father Cardiac disorder Mother Colon cancer Other No family history of adverse response to anesthesia Denies family history of Ovarian cancer Prostate cancer Breast cancer Social History Smoking Status: Former smoker Tobacco Type: Cigarettes Second Hand Exposure: No; Hx Alcohol Use: Yes Alcohol type: beer Hx Substance Use: No Preferred Language: Stateless Communication Ability: Effective Visual Impairment: Partially Limited Hearing Ability: Hard of Hearing Lacrosse Coach Required: No Beliefs That Will Affect Care: None marital status: Current Living Situation: Spouse current occupational status: retired Feels Safe at Home: Yes Childhood Exposure to Second-Hand Smoke: Yes caffeine: Yes Dental Care, Regularly: Yes Physical Activity Frequency: 1-2 Times per Week Seatbelt Use: always Sunscreen Use: No Assistive Devices: Glasses Allergies Allergies Allergy/AdvReac Type Severity Reaction Status Date / Time No Known Allergies Allergy Verified 03/27/21 21:22 Home Meds Home Medications Medication Instructions Recorded Confirmed carbidopa 25 mg-levodopa 250 mg See Rx Instructions .ROUTE .COMPLEX 03/27/21 03/27/21 tablet cholecalciferol (vitamin D3) 50 50 mcg PO QAM 03/27/21 03/27/21 mcg (2,000 unit) capsule (Vitamin D3) finasteride 5 mg tablet 5 mg PO HS 03/27/21 03/27/21 rivaroxaban 10 mg tablet (Xarelto) 5 mg PO QPM 03/27/21 03/27/21 Previous Rx's Medication Instructions Recorded levothyroxine 25 mcg tablet 25 mcg PO QAM #90 tab 11/12/20 entacapone 200 mg tablet 200 mg PO QID 90 Days #360 tab 01/27/21 Results & Data (ED) Vital Signs Vital Signs - 24 hr 03/27/21 20:44 03/27/21 21:27 03/27/21 21:58 Temperature 36.9 C Temperature Source Temporal Artery Scan Pulse Rate 82 100 H Pulse Rate from SpO2 Sensor 101 H Respiratory Rate 22 30 H Respiratory Effort / Characteristics Respiratory Depth Blood Pressure 110/64 Blood Pressure Mean 79 Pulse Oximetry 98 95 Oxygen Delivery Method Room Air Room Air Sepsis Recent Fever Within 48 Hours No Sepsis New/Unexplained Change in Mental Status No Sepsis Action Taken by Nursing No Action Required 03/27/21 22:00 03/27/21 22:42 03/27/21 23:15 Temperature Temperature Source Pulse Rate 99 H 89 Pulse Rate from SpO2 Sensor 101 H 86 Respiratory Rate 23 24 Respiratory Effort / Characteristics Non-Labored Spontaneous Respiratory Depth Normal Blood Pressure 123/70 Blood Pressure Mean 87 Pulse Oximetry 94 98 98 Oxygen Delivery Method Room Air Room Air Sepsis Recent Fever Within 48 Hours Sepsis New/Unexplained Change in Mental Status Sepsis Action Taken by Nursing 03/28/21 00:00 Temperature Temperature Source Pulse Rate 98 H Pulse Rate from SpO2 Sensor Respiratory Rate 21 Respiratory Effort / Characteristics Respiratory Depth Blood Pressure 126/74 Blood Pressure Mean 91 Pulse Oximetry Oxygen Delivery Method Sepsis Recent Fever Within 48 Hours Sepsis New/Unexplained Change in Mental Status Sepsis Action Taken by Nursing Laboratory Data Result diagrams: 03/27/21 21:55 03/27/21 21:55 Lab Results 03/27/21 03/27/21 03/27/21 Range/Units 21:55 21:55 22:38 WBC 11.15 H (4.8-10.8) K/uL RBC 4.34 L (4.7-6.1) M/uL Hgb 13.1 L (14.0-18.0) g/dL Hct 41.3 L (42-52) % MCV 95.2 (80-100) fL MCH 30.2 (25-34) pg MCHC 31.7 L (32-36) g/dL RDW Std Deviation 52.3 H (36.4-46.3) fL RDW Coeff of Marcia 14.9 H (11.5-14.5) % Plt Count 145 (130-400) K/uL MPV 10.1 (7.4-10.4) fL Immature Gran % (Auto) 0.2 % Neut % (Auto) 93.1 % Lymph % (Auto) 2.2 % Faulk % (Auto) 4.3 % Eos % (Auto) 0.1 % Baso % (Auto) 0.1 % Neut # (Auto) 10.39 H (1.4-6.5) K/uL Lymph # (Auto) 0.24 L (1.2-3.4) K/uL Faulk # (Auto) 0.48 (0.11-0.59) K/uL Eos # (Auto) 0.01 (0-0.5) K/uL Baso # (Auto) 0.01 (0-0.2) K/uL Immature Gran # (Auto) 0.02 (0.00-0.02) K/uL Sodium 140 (136-145) mmol/L Potassium 4.3 (3.5-5.1) mmol/L Chloride 106 (98-107) mmol/L Carbon Dioxide 28 (21-32) mmol/L Anion Gap 5.0 (3-11) BUN 34 H (7-18) mg/dl Creatinine 1.43 H (0.6-1.4) mg/dl Est Cr Clr Drug Dosing 44.0 ml/min Est GFR ( Amer) 54.0 ml/min Est GFR (Non-Af Amer) 46.6 ml/min BUN/Creatinine Ratio 23.4 H (10-20) Glucose 102 H (70-99) mg/dl Calcium 8.3 L (8.5-10.1) mg/dl Magnesium 2.0 (1.8-2.4) mg/dl Total Bilirubin 1.6 H (0.2-1) mg/dl AST 16 (15-37) U/L ALT 10 L (12-78) U/L Alkaline Phosphatase 67 (45-117) U/L Troponin I < 0.015 (0-0.045) ng/ml NT-Pro-B Natriuret Pep 3309 H (0-1800) pg/ml Total Protein 6.3 L (6.4-8.2) gm/dl Albumin 3.3 L (3.4-5.0) gm/dl Globulin 3.0 (2.5-4.0) gm/dl Albumin/Globulin Ratio 1.1 (0.9-2) TSH 1.240 (0.300-4.500) uIu/ml Urine Color Dark Yellow Urine Appearance Clear (Clear) Urine pH 5.0 (4.5-7.5) Ur Specific Petal 1.025 (1.000-1.030) Urine Protein 1+ H (Negative) Urine Glucose (UA) Negative (Negative) Urine Ketones 1+ H (Negative) Urine Blood Negative (Negative) Urine Nitrite Negative (Negative) Urine Bilirubin 1+ H (Negative) Urine Urobilinogen Negative (Negative) Ur Leukocyte Esterase Trace H (Negative) Urine WBC (Auto) 1-5 (0-5) /hpf Urine RBC (Auto) 0-4 (0-4) /hpf U Hyaline Cast (Auto) 1-5 (0-5) /lpf U Epithel Cells (Auto) 5-10 H (0-5) /lpf Urine Bacteria (Auto) Negative (Negative) Other Casts Mixed Cell Cast A (0) /lpf COVID-19 Eval Order SARS-CoV-2 (PCR) (Negative) 03/28/21 03/28/21 Range/Units 00:25 00:25 WBC (4.8-10.8) K/uL RBC (4.7-6.1) M/uL Hgb (14.0-18.0) g/dL Hct (42-52) % MCV (80-100) fL MCH (25-34) pg MCHC (32-36) g/dL RDW Std Deviation (36.4-46.3) fL RDW Coeff of Marcia (11.5-14.5) % Plt Count (130-400) K/uL MPV (7.4-10.4) fL Immature Gran % (Auto) % Neut % (Auto) % Lymph % (Auto) % Faulk % (Auto) % Eos % (Auto) % Baso % (Auto) % Neut # (Auto) (1.4-6.5) K/uL Lymph # (Auto) (1.2-3.4) K/uL Faulk # (Auto) (0.11-0.59) K/uL Eos # (Auto) (0-0.5) K/uL Baso # (Auto) (0-0.2) K/uL Immature Gran # (Auto) (0.00-0.02) K/uL Sodium (136-145) mmol/L Potassium (3.5-5.1) mmol/L Chloride (98-107) mmol/L Carbon Dioxide (21-32) mmol/L Anion Gap (3-11) BUN (7-18) mg/dl Creatinine (0.6-1.4) mg/dl Est Cr Clr Drug Dosing ml/min Est GFR ( Amer) ml/min Est GFR (Non-Af Amer) ml/min BUN/Creatinine Ratio (10-20) Glucose (70-99) mg/dl Calcium (8.5-10.1) mg/dl Magnesium (1.8-2.4) mg/dl Total Bilirubin (0.2-1) mg/dl AST (15-37) U/L ALT (12-78) U/L Alkaline Phosphatase (45-117) U/L Troponin I (0-0.045) ng/ml NT-Pro-B Natriuret Pep (0-1800) pg/ml Total Protein (6.4-8.2) gm/dl Albumin (3.4-5.0) gm/dl Globulin (2.5-4.0) gm/dl Albumin/Globulin Ratio (0.9-2) TSH (0.300-4.500) uIu/ml Urine Color Urine Appearance (Clear) Urine pH (4.5-7.5) Ur Specific Petal (1.000-1.030) Urine Protein (Negative) Urine Glucose (UA) (Negative) Urine Ketones (Negative) Urine Blood (Negative) Urine Nitrite (Negative) Urine Bilirubin (Negative) Urine Urobilinogen (Negative) Ur Leukocyte Esterase (Negative) Urine WBC (Auto) (0-5) /hpf Urine RBC (Auto) (0-4) /hpf U Hyaline Cast (Auto) (0-5) /lpf U Epithel Cells (Auto) (0-5) /lpf Urine Bacteria (Auto) (Negative) Other Casts (0) /lpf COVID-19 Eval Order Covid19 at [facility] SARS-CoV-2 (PCR) NEGATIVE (Negative) Administered Medications Discontinued Medications Sodium Chloride (Nss 1000ml) 1,000 mls @ 125 mls/hr IV .Q8H MASHA Stop: 03/28/21 05:29 Last Infusion: 03/28/21 02:59 Dose: 0 mls/hr Documented by: [id number] Admin: 03/27/21 22:02 Dose: 125 mls/hr Documented by: [id number] Discharge Plan Visit Data Chief Complaint: Leg Weakness, Bilateral Stated Complaint: Trouble with balance, walking, dizziness, confused ED Provider: Lewis Greco Discharge Problem: Weakness Discharge Instructions Interventions: ED Discharge Assessment Last Done: 03/28/21 02:33
[2021-03-27 22:25] LABS: Alanine Aminotransferase 10 U/L (12-78); Albumin Level 3.3 gm/dl (3.4-5.0); Aspartate Aminotransferase 16 U/L (15-37); BUN Creatinine Ratio 23.4 (10-20); Blood Urea Nitrogen 34 mg/dl (7-18); Calcium 8.3 mg/dl (8.5-10.1); Carbon Dioxide 28 mmol/L (21-32); Chloride 106 mmol/L (98-107); Est GFR (Non-African American) 46.6 ml/min; Glucose 102 mg/dl (70-99); Potassium 4.3 mmol/L (3.5-5.1); Sodium 140 mmol/L (136-145)
[2021-03-27 22:35] LABS: Albumin Globulin Ratio 1.1 (0.9-2); Alkaline Phosphatase 67 U/L (45-117); Bilirubin,Total 1.6 mg/dl (0.2-1); Total Protein 6.3 gm/dl (6.4-8.2); Troponin I < 0.015 ng/ml (0-0.045)
[2021-03-27 22:52] LABS: NT Pro B Type Natriuretic Pept 3309 pg/ml (0-1800)
[2021-03-27 22:56] LABS: Appearance Urine Clear (Clear); Bacteria Urine Automated Negative (Negative); Blood Urine Negative (Negative); Color Urine Dark Yellow; Glucose Urine UA Negative (Negative); Ketones Urine 1+ (Negative); Leukocyte Esterase Urine Trace (Negative); Nitrite Urine Negative (Negative); Protein Urine 1+ (Negative); RBC Urine Automated 0-4 /hpf (0-4); Specific Gravity Urine 1.025 (1.000-1.030); Urobilinogen Urine Negative (Negative)
[2021-03-27 22:58] LABS: Bilirubin Urine 1+ (Negative)
[2021-03-28] MEDS ORDERED: ENTACAPONE 200 MG TAB PO SCH
--- NOTE | 2021-03-28 00:47 | History & Physical Report ---
Date of Service March 28, 2021 Assessment & Plan (1) Weakness: (2) MEGAN (acute kidney injury): Plan: 80-year-old male past medical history Parkinson's disease, hypothyroidism, hypertension, A. fib admitted for generalized weakness and MEGAN. Weakness, history of Parkinson's disease: History of Parkinson's disease; follows with Dr. Durham with neurology. Takes daily carbidopa/levodopa and entacapone. At baseline patient has weakness and difficulty with ambulation, sitting up, getting out of bed due to his late stage Parkinson's disease. Several days of increased weakness as compared to baseline. Over the weekend reports he "overexerted himself" when visiting family. Does not endorse any decreased appetite. Lab work notable for MEGAN, otherwise normal. CT head stat read without acute pathology. Suspect multifactorial with age-related debility, Parkinson's disease, dehydration/MEGAN. PT and OT evaluations ordered. A. fib: History of on amiodarone and Xarelto. No tachycardia in the ER. Continue meds as above, IV fluids for dehydration. MEGAN: Creatinine 1.43 in ER; baseline 1.1. Prerenal etiology, dehydration secondary to poor intake over the last several days and increase in activity. NSS@100 mL/hr with repeat BMP in the morning. Hypothyroidism: Continue home levothyroxine. CODE STATUS: DNR/DNI FEN: Regular diet DVT prophylaxis: Xarelto Dispo: MedSurg History of Present Illness Chief Complaint: Generalized weakness Primary Care Provider: Jeffery Daniel MD 80-year-old male past medical history Parkinson's disease, hypothyroidism, hypertension, A. fib presented to the ER for worsening weakness and general malaise over the last several days. Patient reports that he performed a lot more activities such as going out on the boat and spending time with family this weekend. Starting Wednesday he reports feeling more worn out and generally weak from his baseline. Has a history of Parkinson's and follows with neurology for this; has baseline difficulty with getting up out of bed, walking. Does not report any decreased appetite or decreased p.o. intake of fluids. Reports no fevers or chills, nausea or vomiting, abdominal pain, chest pain, shortness of breath. Patient noted to have a mildly elevated white count to 11.15, as well as an MEGAN with a creatinine of 1.43 with an elevated BUN to creatinine ratio. UA and chest x-ray not suggestive of infection, COVID-[address] without acute pathology. Allergies Allergy/AdvReac Type Severity Reaction Status Date / Time No Known Allergies Allergy Verified 03/27/21 21:22 Home Medications Medication Instructions Recorded Confirmed Type levothyroxine 25 mcg tablet 25 mcg PO QAM #90 tab 11/12/20 03/27/21 Rx entacapone 200 mg tablet 200 mg PO QID 90 Days #360 tab 01/27/21 03/27/21 Rx carbidopa 25 mg-levodopa 250 mg See Rx Instructions .ROUTE .COMPLEX 03/27/21 03/27/21 History tablet cholecalciferol (vitamin D3) 50 50 mcg PO QAM 03/27/21 03/27/21 History mcg (2,000 unit) capsule (Vitamin D3) finasteride 5 mg tablet 5 mg PO HS 03/27/21 03/27/21 History rivaroxaban 15 mg tablet (Xarelto) 15 mg PO QPM #30 tab 03/28/21 Rx Past Med/Surg History Medical History (Updated 03/29/21 @ 00:08 [facility]) Atrial fibrillation dx 20 years - follows w/ Dr. Dutton -- on xarelto BPH (benign prostatic hyperplasia) Constipation Dysphagia History of anesthesia reaction urinary retention History of cardioversion Hypertension Hypothyroidism Idiopathic polyneuropathy Moderate mitral regurgitation Moderate tricuspid regurgitation Parkinson's disease Pseudobulbar affect Raynaud's disease Status post placement of implantable loop recorder Venous insufficiency (chronic) (peripheral) Vitamin D deficiency Surgical History H/O inguinal hernia repair History of colonoscopy History of surgical removal of skin lesion 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 S/P tonsillectomy and adenoidectomy Family History Unknown Myocardial infarction Father Cardiac disorder Mother Colon cancer Other No family history of adverse response to anesthesia Denies family history of Ovarian cancer Prostate cancer Breast cancer Social History Smoking Status: Former smoker Tobacco Type: Cigarettes Second Hand Exposure: No; Hx Alcohol Use: No Hx Substance Use: No Preferred Language: Emirati Communication Ability: Effective Visual Impairment: Partially Limited Hearing Ability: Hard of Hearing Correspondence Representative Required: No Beliefs That Will Affect Care: None marital status: Current Living Situation: Spouse current occupational status: retired Feels Safe at Home: Yes Childhood Exposure to Second-Hand Smoke: Yes caffeine: Yes Dental Care, Regularly: Yes Physical Activity Frequency: 1-2 Times per Week Seatbelt Use: always Sunscreen Use: No Assistive Devices: Cane Review of Systems Review of Systems: All systems reviewed & are unremarkable except as noted in HPI & below Constitutional: + malaise; no fever and no chills Respiratory: no cough and no dyspnea Cardiovascular: no chest pain, no palpitations and no edema Gastrointestinal: no abdominal pain, no constipation and no diarrhea/loose stools Neurologic: + generalized weakness Physical Exam Constitutional: WD/WN, vitals as above Eyes: PERRL, conjunctivae normal, anicteric sclerae ENMT: external ear and nose normal, oropharynx normal Neck: normal visual inspection Respiratory: normal respiratory effort, lungs clear to auscultation Cardiovascular: Rate/Rhythm: + irregularly irregular Heart Sounds: no murmur Extremities: + edema (1+ bilateral pitting) Gastrointestinal (Abdomen): normal bowel sounds, soft, nontender, no hepatosplenomegaly Musculoskeletal: no cyanosis or clubbing, extremities motor strength 5/5 Skin: no rashes, warm and dry Neurologic: Masked facies. Resting tremor. Limb rigidity. No motor or sensory asymmetry. Psychiatric: A+Ox3, euthymic affect Results & Data Results & Data ([facility]) Vital Signs (Past 12 Hours) Vital Signs Temp Pulse Resp BP Pulse Ox 03/27/21 23:15 89 24 123/70 98 03/27/21 22:42 98 03/27/21 22:00 99 H 23 94 03/27/21 21:58 100 H 30 H 95 03/27/21 21:27 98 03/27/21 20:44 36.9 C 82 22 110/64 Supervising Physician Co-Signing Physician Notes Attending addendum: I have physically seen this patient, have supervised the medical residents activities, and agree with the H&P unless as otherwise noted. Assessment and Plan: Generalized weakness/progressive Parkinson's disease- Continue carbidopa/levodopa and entacapone Feels he may have overexerted himself over the previous week Consult PT/OT Atrial fibrillation- Continue amiodarone and Xarelto Remaining orders and notations as noted Resident Activity Tracking Resident Involvement: Resident Care Provided Care Provided: Adult Hospital Medicine
[2021-03-28] MEDS ORDERED: ACETAMINOPHEN 325 MG TAB PO PRN (02:57)
[2021-03-28] MEDS ORDERED: ONDANSETRON INJ 2 MG/ML 2 ML VIAL IV PRN (02:57)
[2021-03-28] MEDS: SODIUM CHLORIDE 0.9% 1000ML 1,000 ML IV SCH ×2 (03:13→13:26)
[2021-03-28] MEDS: ENTACAPONE 200 MG TAB PO SCH ×3 (06:27→18:17)
[2021-03-28] MEDS: CARBIDOPA/LEVODOPA 25-250 1 EA TAB PO SCH ×2 (06:27→14:14)
[2021-03-28] MEDS ORDERED: LEVOTHYROXINE SODIUM 25 MCG TABLET PO SCH (06:30)
--- NOTE | 2021-03-28 06:49 | CT Scan Report ---
CT head/brain wo con CLINICAL HISTORY: confusion, parkinson's, on anticoagulation COMPARISON STUDY: 03/05/2020 TECHNIQUE: Axial CT of the brain is performed from the vertex to the skull base. IV contrast was not administered for this examination. A dose lowering technique was utilized adhering to the principles of ALARA. CT DOSE: 614.27 mGy.cm FINDINGS: No intra or extra-axial mass lesions are visualized. There is no CT evidence of acute cortical infarc tion. There is no evidence of midline shift. There is no acute hemorrhage. No calvarial fractures ar e visualized. There are mild white matter hypodensities likely on a small vessel basis. There is no evidence of pathologic ventricular dilatation. There is minor maxillary sinus mucosal thickening. There is a small right maxillary sinus polyp/reten tion cyst. IMPRESSION: No acute intracranial findings ACT 112: Negative or not required by law. Electronically signed by: Mustapha Blanc M.D. 03/28/2021 6:48 AM
--- NOTE | 2021-03-28 09:03 | XRay Report ---
XR chest 1V portable HISTORY: 80 years-old Male weakness acute weakness COMPARISON: Chest radiograph 03/05/2020 TECHNIQUE: Portable AP view of the chest FINDINGS: Cardiac silhouette is enlarged. Mild pulmonary vascular congestion with chronic interstitial coarseni ng. Unchanged mild right hemidiaphragm elevation. No pneumothorax, pleural effusion or lobar airspace consolidation. Mild bibasilar densities suggest atelectasis. There are degenerative changes of the s houlders and spine. IMPRESSION: Cardiomegaly with pulmonary vascular congestion. ACT 112: Negative or not required by law. The above report was generated using voice recognition software. It may contain grammatical, syntax o r spelling errors. Electronically signed by: Mayur Gutiérrez M.D. 03/28/2021 9:02 AM
--- NOTE | 2021-03-28 09:09 | Hospitalist Progress Note ---
Date of Service March 28, 2021 Assessment & Plan Admission and Anticipated Discharge Date Admission Date: March 28, 2021 Results & Data Results & Data ([facility]) Vital Signs (Past 12 Hours) Vital Signs Temp Pulse Pulse Resp BP BP Pulse Ox 03/28/21 07:51 36.7 C 81 16 111/74 93 03/28/21 03:00 37.7 C H 87 18 128/83 96 03/28/21 02:00 99 H 27 H 112/72 03/28/21 00:00 98 H 21 126/74 03/27/21 23:15 89 24 123/70 98 03/27/21 22:42 98 03/27/21 22:00 99 H 23 94 03/27/21 21:58 100 H 30 H 95 03/27/21 21:27 98 Laboratory Results 03/28/21 03/28/21 03/27/21 Range/Units 00:25 00:25 22:38 WBC (4.8-10.8) K/uL RBC (4.7-6.1) M/uL Hgb (14.0-18.0) g/dL Hct (42-52) % MCV (80-100) fL MCH (25-34) pg MCHC (32-36) g/dL RDW Std Deviation (36.4-46.3) fL RDW Coeff of Marcia (11.5-14.5) % Plt Count (130-400) K/uL MPV (7.4-10.4) fL Immature Gran % (Auto) % Neut % (Auto) % Lymph % (Auto) % [place] % (Auto) % Eos % (Auto) % Baso % (Auto) % Neut # (Auto) (1.4-6.5) K/uL Lymph # (Auto) (1.2-3.4) K/uL [place] # (Auto) (0.11-0.59) K/uL Eos # (Auto) (0-0.5) K/uL Baso # (Auto) (0-0.2) K/uL Immature Gran # (Auto) (0.00-0.02) K/uL Sodium (136-145) mmol/L Potassium (3.5-5.1) mmol/L Chloride (98-107) mmol/L Carbon Dioxide (21-32) mmol/L Anion Gap (3-11) BUN (7-18) mg/dl Creatinine (0.6-1.4) mg/dl Est Cr Clr Drug Dosing ml/min Est GFR ( Amer) ml/min Est GFR (Non-Af Amer) ml/min BUN/Creatinine Ratio (10-20) Glucose (70-99) mg/dl Calcium (8.5-10.1) mg/dl Magnesium (1.8-2.4) mg/dl Total Bilirubin (0.2-1) mg/dl AST (15-37) U/L ALT (12-78) U/L Alkaline Phosphatase (45-117) U/L Troponin I (0-0.045) ng/ml NT-Pro-B Natriuret Pep (0-1800) pg/ml Total Protein (6.4-8.2) gm/dl Albumin (3.4-5.0) gm/dl Globulin (2.5-4.0) gm/dl Albumin/Globulin Ratio (0.9-2) TSH (0.300-4.500) uIu/ml Urine Color Dark Yellow Urine Appearance Clear (Clear) Urine pH 5.0 (4.5-7.5) Ur Specific Hosmer 1.025 (1.000-1.030) Urine Protein 1+ H (Negative) Urine Glucose (UA) Negative (Negative) Urine Ketones 1+ H (Negative) Urine Blood Negative (Negative) Urine Nitrite Negative (Negative) Urine Bilirubin 1+ H (Negative) Urine Urobilinogen Negative (Negative) Ur Leukocyte Esterase Trace H (Negative) Urine WBC (Auto) 1-5 (0-5) /hpf Urine RBC (Auto) 0-4 (0-4) /hpf U Hyaline Cast (Auto) 1-5 (0-5) /lpf U Epithel Cells (Auto) 5-10 H (0-5) /lpf Urine Bacteria (Auto) Negative (Negative) Other Casts Mixed Cell Cast A (0) /lpf COVID-19 Eval Order Covid19 at [facility] SARS-CoV-2 (PCR) NEGATIVE (Negative) 03/27/21 03/27/21 Range/Units 21:55 21:55 WBC 11.15 H (4.8-10.8) K/uL RBC 4.34 L (4.7-6.1) M/uL Hgb 13.1 L (14.0-18.0) g/dL Hct 41.3 L (42-52) % MCV 95.2 (80-100) fL MCH 30.2 (25-34) pg MCHC 31.7 L (32-36) g/dL RDW Std Deviation 52.3 H (36.4-46.3) fL RDW Coeff of Marcia 14.9 H (11.5-14.5) % Plt Count 145 (130-400) K/uL MPV 10.1 (7.4-10.4) fL Immature Gran % (Auto) 0.2 % Neut % (Auto) 93.1 % Lymph % (Auto) 2.2 % [place] % (Auto) 4.3 % Eos % (Auto) 0.1 % Baso % (Auto) 0.1 % Neut # (Auto) 10.39 H (1.4-6.5) K/uL Lymph # (Auto) 0.24 L (1.2-3.4) K/uL [place] # (Auto) 0.48 (0.11-0.59) K/uL Eos # (Auto) 0.01 (0-0.5) K/uL Baso # (Auto) 0.01 (0-0.2) K/uL Immature Gran # (Auto) 0.02 (0.00-0.02) K/uL Sodium 140 (136-145) mmol/L Potassium 4.3 (3.5-5.1) mmol/L Chloride 106 (98-107) mmol/L Carbon Dioxide 28 (21-32) mmol/L Anion Gap 5.0 (3-11) BUN 34 H (7-18) mg/dl Creatinine 1.43 H (0.6-1.4) mg/dl Est Cr Clr Drug Dosing 44.0 ml/min Est GFR ( Amer) 54.0 ml/min Est GFR (Non-Af Amer) 46.6 ml/min BUN/Creatinine Ratio 23.4 H (10-20) Glucose 102 H (70-99) mg/dl Calcium 8.3 L (8.5-10.1) mg/dl Magnesium 2.0 (1.8-2.4) mg/dl Total Bilirubin 1.6 H (0.2-1) mg/dl AST 16 (15-37) U/L ALT 10 L (12-78) U/L Alkaline Phosphatase 67 (45-117) U/L Troponin I < 0.015 (0-0.045) ng/ml NT-Pro-B Natriuret Pep 3309 H (0-1800) pg/ml Total Protein 6.3 L (6.4-8.2) gm/dl Albumin 3.3 L (3.4-5.0) gm/dl Globulin 3.0 (2.5-4.0) gm/dl Albumin/Globulin Ratio 1.1 (0.9-2) TSH 1.240 (0.300-4.500) uIu/ml Urine Color Urine Appearance (Clear) Urine pH (4.5-7.5) Ur Specific Hosmer (1.000-1.030) Urine Protein (Negative) Urine Glucose (UA) (Negative) Urine Ketones (Negative) Urine Blood (Negative) Urine Nitrite (Negative) Urine Bilirubin (Negative) Urine Urobilinogen (Negative) Ur Leukocyte Esterase (Negative) Urine WBC (Auto) (0-5) /hpf Urine RBC (Auto) (0-4) /hpf U Hyaline Cast (Auto) (0-5) /lpf U Epithel Cells (Auto) (0-5) /lpf Urine Bacteria (Auto) (Negative) Other Casts (0) /lpf COVID-19 Eval Order SARS-CoV-2 (PCR) (Negative) PG Care Time/CCT Total # of Minutes Spent Total Time Spent with Patient: Total time spent is greater than 50% in coordination of care (as documented) at patient's floor/unit and/or counseling patient: Coding
[2021-03-28 09:38] LABS: Hematocrit (blood only) 41.2 % (42-52); Hemoglobin 12.9 g/dL (14.0-18.0); Mean Corpuscular Hemoglobin 30.1 pg (25-34); Mean Corpuscular Hgb Conc 31.3 g/dL (32-36); Mean Platelet Volume 10.7 fL (7.4-10.4); Platelet Count 121 K/uL (130-400); RDW Coefficient of Variation 15.1 % (11.5-14.5); RDW Standard Deviation 53.3 fL (36.4-46.3); Red Blood Count 4.29 M/uL (4.7-6.1); White Blood Count 6.85 K/uL (4.8-10.8)
[2021-03-28 10:09] LABS: Alanine Aminotransferase < 6 U/L (12-78); Albumin Level 2.9 gm/dl (3.4-5.0); Aspartate Aminotransferase 14 U/L (15-37); BUN Creatinine Ratio 26.7 (10-20); Bilirubin Direct 0.3 mg/dl (0-0.2); Blood Urea Nitrogen 30 mg/dl (7-18); Carbon Dioxide 30 mmol/L (21-32); Chloride 108 mmol/L (98-107); Creatinine Clr Calc Pharmacy 56.6 ml/min; Est GFR (African American) 73.3 ml/min; Est GFR (Non-African American) 63.3 ml/min; Glucose 89 mg/dl (70-99); Potassium 4.3 mmol/L (3.5-5.1); Sodium 139 mmol/L (136-145)
[2021-03-28 10:12] LABS: Alkaline Phosphatase 61 U/L (45-117); Bilirubin,Total 1.2 mg/dl (0.2-1); Creatine Kinase 44 U/L (39-308); Total Protein 5.8 gm/dl (6.4-8.2)
--- NOTE | 2021-03-28 10:13 | Ultrasound Report ---
BILATERAL LOWER EXTREMITY VENOUS DOPPLER HISTORY: Lower extremity weakness. r/o DVT, weakness COMPARISON STUDY: None. FINDINGS: There is normal compressibility, flow, and augmentation within the bilateral lower extremit y deep venous systems. IMPRESSION: No DVT within the right or left lower extremity. ACT 112: Negative or not required by law. Electronically signed by: Stephan Peace M.D. 03/28/2021 10:12 AM
--- NOTE | 2021-03-28 13:01 | XRay Report ---
XR chest 1V portable HISTORY: 80 years-old Male aspiration, choking acute shortness of breath COMPARISON: Chest radiograph 03/27/2021 TECHNIQUE: Portable AP view of the chest FINDINGS: Unchanged cardiomegaly. Loop recorder device. Mild right hemidiaphragmatic elevation. Mild chronic in terstitial coarsening. No pneumothorax, pleural effusion, airspace consolidation or overt pulmonary e melia. Degenerative changes of the shoulders and spine. Loose bodies project over the proximal left hu merus. IMPRESSION: Cardiomegaly without acute process. ACT 112: Negative or not required by law. The above report was generated using voice recognition software. It may contain grammatical, syntax o r spelling errors. Electronically signed by: Mayur Gutiérrez M.D. 03/28/2021 12:59 PM
--- NOTE | 2021-03-28 13:13 | Electrocardiogram Report ---
Test Reason : Blood Pressure : / mmHG Vent. Rate : 099 BPM Atrial Rate : 120 BPM P-R Int : 000 ms QRS Dur : 086 ms QT Int : 332 ms P-R-T Axes : 000 -86 027 degrees QTc Int : 426 ms Poor data quality, interpretation may be adversely affected Atrial fibrillation Left axis deviation Nonspecific ST abnormality Abnormal ECG Confirmed by Jesse Dutton ([id number]) on 03/28/2021 1:12:48 PM Referred By: Jeffery Daniel Confirmed By:Cb Dutton
--- NOTE | 2021-03-28 14:25 | Fluoroscopy Report ---
FL video swallow CLINICAL HISTORY: 80 years-old Male with r/o aspiration; PD. Dysphagia. TECHNIQUE: Video fluoroscopic evaluation of swallowing was performed in the AP and lateral projection s by the speech pathology staff. The patient is fed nectar-thick and thin liquid barium, and barium p udding. FLUOROSCOPY TIME: 1.7 minutes. COMPARISON STUDY: None. FINDINGS: Penetration without aspiration is noted within liquid, nectar thick and honey thick consist encies. Vallecular retention is noted throughout the study. No aspiration. Esophageal dysmotility wit h nectar thick and pudding consistencies. Loop recorder device is noted. IMPRESSION: 1. Penetration without aspiration. 2. Please see the speech pathologist report for detailed findings and recommendations. ACT 112: Negative or not required by law. Electronically signed by: Mayur Gutiérrez M.D. 03/28/2021 2:23 PM
--- NOTE | 2021-03-28 14:57 | XCELERA ---
[id number]
--- NOTE | 2021-03-28 15:41 | Discharge Summary ---
Date of Service March 28, 2021 Admission HPI Per Admitting Provider 80-year-old male past medical history Parkinson's disease, hypothyroidism, hypertension, A. fib presented to the ER for worsening weakness and general malaise over the last several days. Patient reports that he performed a lot more activities such as going out on the boat and spending time with family this weekend. Starting Wednesday he reports feeling more worn out and generally weak from his baseline. Has a history of Parkinson's and follows with neurology for this; has baseline difficulty with getting up out of bed, walking. Does not report any decreased appetite or decreased p.o. intake of fluids. Reports no fevers or chills, nausea or vomiting, abdominal pain, chest pain, shortness of breath. Patient noted to have a mildly elevated white count to 11.15, as well as an MEGAN with a creatinine of 1.43 with an elevated BUN to creatinine ratio. UA and chest x-ray not suggestive of infection, COVID-[address] without acute pathology. Admission Exam Per Admitting Provider Constitutional: WD/WN, vitals as above Eyes: PERRL, conjunctivae normal, anicteric sclerae ENMT: external ear and nose normal, oropharynx normal Neck: normal visual inspection Respiratory: normal respiratory effort, lungs clear to auscultation Cardiovascular: Rate/Rhythm: + irregularly irregular Heart Sounds: no murmur Extremities: + edema (1+ bilateral pitting) Gastrointestinal (Abdomen): normal bowel sounds, soft, nontender, no hepatosplenomegaly Musculoskeletal: no cyanosis or clubbing, extremities motor strength 5/5 Skin: no rashes, warm and dry Neurologic: Masked facies. Resting tremor. Limb rigidity. No motor or sensory asymmetry. Psychiatric: A+Ox3, euthymic affect Principal Diagnosis MEGAN, Weakness Discharge Exam Constitutional WD/WN, vitals as above Eyes PERRL, conjunctivae normal, anicteric sclerae ENMT external ear and nose normal, oropharynx normal Neck normal visual inspection Respiratory normal respiratory effort, lungs clear to auscultation Cardiovascular Rate/Rhythm: + irregularly irregular Heart Sounds: no murmur Extremities: + edema (1+ bilateral pitting) Gastrointestinal (Abdomen) normal bowel sounds, soft, nontender, no hepatosplenomegaly Musculoskeletal no cyanosis or clubbing, extremities motor strength 5/5 Skin no rashes, warm and dry Neurologic patellar DTR's 2+ bilat, sensation intact Psychiatric A+Ox3, euthymic affect (flat affect, slowed responses, parkinsonism faces) Genitourinary no zaragoza Lymphatic no cervical or axillary lymphadenopathy Discharge Data Allergies Allergy/AdvReac Type Severity Reaction Status Date / Time No Known Allergies Allergy Verified 03/27/21 21:22 Consultations 03/28/21 00:18 ED Decision to Admit Stat Ordered Studies Chest X-Ray 03/27/21 21:27 XR chest 1V portable HISTORY: 80 years-old Male weakness acute weakness COMPARISON: Chest radiograph 03/05/2020 TECHNIQUE: Portable AP view of the chest FINDINGS: Cardiac silhouette is enlarged. Mild pulmonary vascular congestion with chronic interstitial coarsening. Unchanged mild right hemidiaphragm elevation. No pneumothorax, pleural effusion or lobar airspace consolidation. Mild bibasilar densities suggest atelectasis. There are degenerative changes of the shoulders and spine. IMPRESSION: Cardiomegaly with pulmonary vascular congestion. ACT 112: Negative or not required by law. The above report was generated using voice recognition software. It may contain grammatical, syntax or spelling errors. Electronically signed by: Mayur Gutiérrez M.D. 03/28/2021 9:[address] 03/27/21 22:22 CT head/brain wo con CLINICAL HISTORY: confusion, parkinson's, on anticoagulation COMPARISON STUDY: 03/05/2020 TECHNIQUE: Axial CT of the brain is performed from the vertex to the skull base. IV contrast was not administered for this examination. A dose lowering technique was utilized adhering to the principles of ALARA. CT DOSE: 614.27 mGy.cm FINDINGS: No intra or extra-axial mass lesions are visualized. There is no CT evidence of acute cortical infarction. There is no evidence of midline shift. There is no acute hemorrhage. No calvarial fractures are visualized. There are mild white matter hypodensities likely on a small vessel basis. There is no evidence of pathologic ventricular dilatation. There is minor maxillary sinus mucosal thickening. There is a small right maxillary sinus polyp/retention cyst. IMPRESSION: No acute intracranial findings ACT 112: Negative or not required by law. Electronically signed by: Mustapha Blanc M.D. 03/28/2021 6:48 AM Venous Doppler Study 03/28/21 09:30 BILATERAL LOWER EXTREMITY VENOUS DOPPLER HISTORY: Lower extremity weakness. r/o DVT, weakness COMPARISON STUDY: None. FINDINGS: There is normal compressibility, flow, and augmentation within the bilateral lower extremity deep venous systems. IMPRESSION: No DVT within the right or left lower extremity. ACT 112: Negative or not required by law. Electronically signed by: Stephan Peace M.D. 03/28/2021 10:12 AM Chest X-Ray 03/28/21 11:57 XR chest 1V portable HISTORY: 80 years-old Male aspiration, choking acute shortness of breath COMPARISON: Chest radiograph 03/27/2021 TECHNIQUE: Portable AP view of the chest FINDINGS: Unchanged cardiomegaly. Loop recorder device. Mild right hemidiaphragmatic elevation. Mild chronic interstitial coarsening. No pneumothorax, pleural effusion, airspace consolidation or overt pulmonary edema. Degenerative changes of the shoulders and spine. Loose bodies project over the proximal left humerus. IMPRESSION: Cardiomegaly without acute process. ACT 112: Negative or not required by law. The above report was generated using voice recognition software. It may contain grammatical, syntax or spelling errors. Electronically signed by: Mayur Gutiérrez M.D. 03/28/2021 12:59 PM Videofluoroscopic Swallow 03/28/21 13:45 FL video swallow CLINICAL HISTORY: 80 years-old Male with r/o aspiration; PD. Dysphagia. TECHNIQUE: Video fluoroscopic evaluation of swallowing was performed in the AP and lateral projections by the speech pathology staff. The patient is fed nectar-thick and thin liquid barium, and barium pudding. FLUOROSCOPY TIME: 1.7 minutes. COMPARISON STUDY: None. FINDINGS: Penetration without aspiration is noted within liquid, nectar thick and honey thick consistencies. Vallecular retention is noted throughout the study. No aspiration. Esophageal dysmotility with nectar thick and pudding consistencies. Loop recorder device is noted. IMPRESSION: 1. Penetration without aspiration. 2. Please see the speech pathologist report for detailed findings and recommendations. ACT 112: Negative or not required by law. Electronically signed by: Mayur Gutiérrez M.D. 03/28/2021 2:23 PM Hospital Course (1) Weakness: (2) MEGAN (acute kidney injury): 80-year-old male past medical history Parkinson's disease, hypothyroidism, hypertension, A. fib, admitted for generalized weakness and MEGAN after having poor PO intake/dehydration. Visiting from [facility] on vacation (lives locally though) CT Head without acute process CXR with cardiomegaly without acute process ECHO LV systolic function normal, mild concentric LVH, mild MR, RVSP elevated at 30-40mmhg, severe biatrial enlargement (likely from his afib but not tachycardic on admission) Trop <0.015 TSH 1.240 -- continued home levothyroxine 50mcg Cr elevated to 1.43 on admission with baseline ~1 IVF provided, Cr returned to normal Patient stated strength back to baseline PT/OT evals for OPPT -- given Rx to patient/ as they will plan on therapy in [place] Patient did have episode of choking while inpatient --> consulted speech Video swallow without overt aspiration but we did make dietary recommendations on what to avoid. 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 At baseline patient has weakness and difficulty with ambulation, sitting up, getting out of bed due to his late stage Parkinson's disease. --> can follow up routine Dr Durham. Continued his carbidopa/levodopa and entacapone while inpatient Also given home pack as patient traveling without his medications Increased Xarelto to 15mg daily -- was on reduced dose and hx nose bleeds -- if recurs, consider alternative agent. Rx sent. Total Time Total Time Spent Total Time Spent (In Minutes): 70 Discharge Plan Discharge Items Patient Disposition: Home - Self-Care Reason For Visit: WEAKNESS, MEGAN Discharge Diagnosis: Weakness, Acute Kidney Injury Goals: You have been hospitalized for an acute medical problem. During your stay at [facility], we have made an effort to correct the problem that brought you to the hospital while keeping you as comfortable as possible. Medications were used to bring your condition under control and your discharge instructions will include directions for any medications you should take after leaving the hospital. Please make sure you see your Primary Care Provider as part of your follow up plan. Activity: Resume your previous activity Activity Comment: outpatient physical therapy Non-emergency contact: Primary Care Provider Call non-emergency contact if: you have any medication questions, your symptoms worsen and your pain is unusual for you Follow-up/Referrals: Jeffery Daniel MD [Primary Care Provider] - 04/01/21 3:45 pm Diet: Heart Healthy [facility] Attending Provider Instructions: You have been hospitalized for weakness. CT of the head was negative. CXR without pneumonia. Venouse Dopplers of your legs were NEGATIVE for blood clots. You were found to have dehydration and elevated creatinine (kidney test) and were provided IV fluids for hydration. For your choking, it is felt related to your Parkinson's and a chest xray was obtained to make sure no aspiration. Speech therapy saw you and did a swallow study which was normal, but they felt it would be best to AVOID dry foods and foods that break into tiny pieces like flaky fish, dry rice, crumbly eggs, etc. You should have outpatient speech therapy to help with articulation/swallowing, and speech therapy has also recommended follow up with telehealth provider named Gena Bustos and their website is [employer] where you can find more information. Ultrasound was done of your heart as congestive heart failure can contribute to weakness as well, and this was without significant change compared to prior study. You have been given slips for therapy and speech therapy as an outpatient as paper prescriptions as you will be traveling to [facility]. You have also been provided a copy of your chart while in the hospital. Your xarelto should be 15mg by mouth at night, and this was increased. If you have repeat nose bleeding, you may want to consider switching to Eliquis or another agent to see if you have less bleeding, as it is important to be on appropriate doses to prevent consequences of atrial fibrillation. You should follow up with your primary care provider at discharge to monitor your progress. Please return to the emergency department with any increased weakness, fatigue, shortness of breath, chest pain, or for any other symptoms that are concerning for you. It has been a pleasure being a part of the medical team providing for you while you have been in the hospital. Take care! Pending Studies at Discharge: No Stand-Alone Forms: My [facility] Medications and DC Order Prescriptions: New Xarelto 15 mg Tablet 15 mg PO QPM Qty: 30 RF: 0 Continued levothyroxine 25 mcg tablet 25 mcg PO QAM Qty: 90 RF: 3 entacapone 200 mg tablet 200 mg PO QID 90 Days Qty: 360 RF: 1 finasteride 5 mg tablet 5 mg PO HS RF: 0 cholecalciferol (vitamin D3) [Vitamin D3] 50 mcg (2,000 unit) capsule 50 mcg PO QAM RF: 0 carbidopa-levodopa 25-250 mg tablet See Rx Instructions .ROUTE .COMPLEX RF: 0 Discontinued Xarelto 10 mg tablet 5 mg PO QPM RF: 0 Discharge Orders: Discharge Order (Routine); Ordered 03/28/21 Ordered By: Maryann Snell Admission Data Admit Date/Time: 03/28/21 01:02 Attending Provider: Foster Falcon Admit Provider: Gena Dominique Primary Care Provider: Jeffery Daniel Other Providers: Lucian Salas Coding Level of Care Code 95283 OBS Care - Discharge Diagnoses Weakness R53.1 MEGAN (acute kidney injury) N17.9
[2021-03-28] MEDS ORDERED: CARBIDOPA/LEVODOPA 25-250 1 EA TAB PO SCH ×3 (18:00)
[2021-03-28] MEDS ORDERED: FINASTERIDE 5 MG TAB PO SCH (21:00)
[2021-03-28] MEDS ORDERED: RIVAROXABAN 15 MG TAB PO SCH ×2 (21:00)
--- NOTE | 2021-03-29 06:03 | Billing Data ---
Date of Service March 29, 2021 Coding Level of Care Code INT OBSERVATION CARE 70M LVL 3
== END 2021-03-28 19:26 | disposition home or self-care (01) ==
LOC: ED 20:40 → 3W 20:40 → SUATTDRO 03-28 01:02 → 3W 03-28 02:33

== ENCOUNTER 2023-01-04 09:06 | Inpatient (IN) ==
--- NOTE | 2023-01-04 10:00 | History & Physical Bridge Note ---
Date of Service January 04, 2023 History & Physical Bridge Note I have examined the patient, reviewed the History & Physical and in the interval since the performance of the History & Physical I have noted the following changes of clinical significance: no changes noted
--- NOTE | 2023-01-04 10:01 | Pre Anesthesia Assessment ---
Date of Service January 04, 2023 Pre Sedation Assessment Vital Signs Temp Pulse Resp BP Pulse Ox O2 Del Method 01/04/23 09:27 36.5 C 110 H 18 144/78 H 95 Room Air Cardiovascular + tachycardic and + irregularly irregular Respiratory + respiratory effort normal Pre-Sedation Airway Assessment Smoking Status: Former smoker Hx Sleep Apnea: No Hx Difficult Intubation: No Short, Thick Neck: No Thyromental Distance: > or= 3.5 Finger Breadths Oral Cavity: + WNL Mallampati Class: III ASA: ASA3 NPO Status Date of Last Intake of Fluids: 01/04/23 Time of Last Intake of Fluids: 06:00 Date of Last Intake of Solid Food: 01/03/23 Time of Last Intake of Solid Foods: 18:00 Procedure Planning Contraindications for Sedation: none Current Medications Reviewed: Yes Notes The planned sedation has been discussed with the patient. Informed Consent was obtained. I have identified the patient, determined the appropriateness of sedation and have assessed the patient immediately prior to the procedure. All medicine(s) and interventions are by my order.
[2023-01-04] MEDS ORDERED: BUPIVACAINE 0.25% PF 30 ML VIAL ONE (10:13)
[2023-01-04] MEDS ORDERED: VANCOMYCIN HCL 1000MG/20ML VIAL ONE ×2 (10:13→13:20)
[2023-01-04] MEDS ORDERED: WATER, STERILE FOR INJ 10 ML VIAL ONE ×2 (10:13→13:20)
[2023-01-04] MEDS ORDERED: LIDOCAINE 1% LOCAL 20 ML VIAL ONE (10:13)
[2023-01-04] MEDS ORDERED: fentaNYL citrate PF 100 MCG/2 ML VIAL ONE (10:18)
[2023-01-04] MEDS ORDERED: MIDAZOLAM HCL 5 MG/ML 1 ML VIAL ONE (10:18)
[2023-01-04] MEDS ORDERED: HEPARIN (PORCINE) 1000 UNIT/ML 10 ML (CATH LAB USE ONLY) ONE (10:44)
[2023-01-04] MEDS ORDERED: ceFAZolin 330 MG/ML 1 GM VIAL ONE (10:53)
[2023-01-04] MEDS ORDERED: ISOPROTERENOL HCL 0.2 MG/ML 5 ML AMP IV ONE (11:36)
[2023-01-04] MEDS ORDERED: ACETAMINOPHEN 325 MG TAB PO PRN (13:28)
--- NOTE | 2023-01-04 13:28 | Electrophysiology Report ---
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 Underwent pacemaker implantation today and the loop recorder was no longer necessary procedure detail: The patient has been informed of the risks benefits and alternatives to the intended procedure. He understood which proceed. Was taken to the electrophysiology suite. The patient had been sedated. A local anesthetic was infiltrated in the subcutaneous tissues above the previously implanted device. Small incision was made and the device was freed from the surrounding scar tissue. He was subsequently removed with a hemostatic. The resulting incision was closed with a single 4 0 Vicryl suture followed by a Steri-Strips and a sterile dressing. The patient tolerated procedure well. There were no immediate complications. 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
--- NOTE | 2023-01-04 13:28 | Post Anesthesia Assessment ---
Date of Service January 04, 2023 Post Sedation Assessment Vital Signs Temp Pulse Resp BP Pulse Ox O2 Del Method 01/04/23 09:27 36.5 C 110 H 18 144/78 H 95 Room Air Recovery Score Activity: Moves 4 extremities Respiration: Deep Breath/Cough Circulation: +/-20% PreAnes Value Consciousness: Arouseable (by name) Oxygen Saturation: > 92% On Room Air Discharge Sedation Level of Care: Fast Track Phase II Post Sedation Plan On clinical assessment, the patient appears to have tolerated the sedation without complications. Patient is recovering as anticipated. Patient will continue to be monitored by nursing and may be discharged when sedation discharge criteria are met per below protocol. Upon Completions of procedure up to 15 minutes continue every 5 minute vital signs and the P.A.R. score; then discharge to a Phase I or Fast Track to Phase II per the following guidelines: * Discharge Patient to appropriate Phase II area if PAR is 8 or greater or return to pre- procedure baseline. The post - procedure orders will be as directed. * If PAR score is less than 8 or not return to pre-procedure baseline then patient will follow Phase I monitoring till PAR is reached for Phase II. The Phase I may be done in procedure room or may call to secure a Phase I area. * If naloxone or flumazenil are used for reversal, hold in Phase I for continued monitoring from when last reversal dose was given for a minimum of 60 minutes or longer pending the nurse and/or physician discretion of patient condition before discharge to Phase II. Please call the Sedation Physician to re-evaluate and complete post-note for discharge to Phase II area. Do NOT discharge from procedure sedation or Phase 1 until post- sedation evaluation note is complete by procedure /sedation MD Sedation Discharge Instructions to be given to the patient at discharge to home.
--- NOTE | 2023-01-04 13:28 | Electrophysiology Report ---
Date of Service January 04, 2023 Electrophysiology Procedure Electrophysiology Procedure Report procedure performed: Ablation of AV node staff business process manager: Jesse Dutton MD indication: The patient is an 82-year-old gentleman with a history of permanent atrial fibrillation and high ventricular rates. There has been difficulty controlling his rates due to a history of orthostatic hypotension with rate control medications. He has an element of reduced LV systolic function. He is advised to undergo AV node ablation with placement of a permanent pacemaker for improved rate control and improvement of LV function. Procedure detail: The patient was informed the risks benefits and alternatives to the intended procedure. He understood which proceed. He is taken to the electrophysiology suite in a fasting state. Conscious sedation was administered per protocol the patient was monitored electrocardiographically throughout today's procedure. The right femoral area was prepped and draped in usual sterile fashion. This area was anesthetized using subcutaneous Administration of a lidocaine and Marcaine solution. Right femoral vein was accessed twice using modified Seldinger technique. Sheaths were placed over guidewires at this site used facilitate passage of the EP catheters to the respective chambers under fluoroscopic guidance. This included right ventricular apical catheter and right atrial ablation catheter. Ablation of the AV node was subsequently performed. three-dimensional electro anatomical mapping was also employed for localization and ablation. Complete heart block was confirmed and isoproterenol employed for this purpose. I think inclusion of the procedure in after placement of a permanent pacemaker the catheters and sheaths were removed. Hemostasis was achieved at the access site using manual pressure. The patient tolerated procedure well. There were no immediate complications. Ablation: Ablation was carried out using an 8 Welsh 3.5 millimeter irrigated contact for sensing radiofrequency ablation catheter. Ablation was carried out any power limited mode. Lesions were placed around the AV node until complete heart block was achieved. Isoproterenol infusion was employed without evidence of AV node conduction impression: Successful ablation of the AV node with development of complete heart block [facility] Electrophysiology codes EP Procedure 1: Electrophysiology: 75845 Ablation AV Node w/wo pace
--- NOTE | 2023-01-04 13:28 | Electrophysiology Report ---
Date of Service January 04, 2023 Electrophysiology Procedure Electrophysiology Procedure Report procedure performed: Implantation of biventricular pacemaker staff processor grain: Jesse Dutton MD indication: The patient is an 82-year-old gentleman who has a history of permanent atrial fibrillation and associated high ventricular rates. Immediately prior to this procedure the patient underwent an AV node ablation. He has an element of reduced LV systolic function and will require 100 percent ventricular pacing. As such she was felt to be a good candidate for a permanent pacemaker due to symptomatic nonreversible AV node dysfunction. a coronary sinus lead was added due to his LV dysfunction and need for 100 percent ventricular pacing. Procedure detail: The patient was informed the risks benefits and alternatives to the intended procedure. He understood which proceed. He was taken to the electrophysiology suite in a fasting state. Conscious sedation was administered per protocol the patient was monitored electrocardiographically throughout today's procedure. A preoperative antibiotic was administered. The left upper pectoral area was prepped and draped in usual sterile fashion. This area was anesthetized using subcutaneous menstruation of lidocaine and Marcaine solution. Incision was made at the site and carried down to the prepectoralis fascia using sharp dissection. Electrocautery was also employed for dissection as well as for hemostasis. Device pocket was fashioned in the tissues above the pectoralis muscle. Subsequent to this maneuver the left axillary vein was accessed twice using modified Seldinger technique. A sheath was placed over 1 of the guidewires at this site used facilitate passage of the guiding catheter for engagement of the coronary sinus. Once engaged limited coronary sinus venography was performed in order to identify suitable target vessel. Once identified standard guidewire and catheter techniques were employed in order to deliver the pacing lead to the target vessel. Adequate sensing, threshold and absence of diaphragmatic stimulation were confirmed prior to removal of the guiding catheters. The proximal portion of lead was then sutured to the prepectoralis fascia using nonabsorbable suture. A sheath was placed over the remaining guidewire and used facilitate passage of a pacing lead to the right ventricular apex under fluoroscopic guidance. Adequate sensing threshold parameters were obtained prior to active fixation of this lead to the endocardial surface. The proximal portion of lead was then sutured to prepectoralis fascia using nonabsorbable suture. The device pocket was irrigated with antibiotic solution. The leads were attached to the device and leads and device were then enclosed an antibiotic impregnated M below. The leads and device were placed in the pocket the pocket was subsequently closed in 3 layers of absorbable suture. Steri- Strips and sterile dressing were applied. The device was tested noninvasively prior conclusion the procedure. The patient tolerated procedure well. There were no immediate complications. Equipment used: Pulse generator: [employer] MedGMG33 model number W4TR02 serial number [id number] Right atrial lead port was capped. balloon seller Medtronic model number 6725 lot [id number] Right ventricular lead: [employer]. model 5076 serial number [id number] coronary sinus lead: [employer] Med[employer]onic model 4298 serial number [id number] V measured data right ventricular lead: No intrinsic R-waves. Pacing threshold was 1 volt at 0.5 milliseconds with a pacing impedance of 676 Ohms coronary sinus lead: No intrinsic R-waves were measured pacing threshold was 1 volt at 0.4 milliseconds with a pacing impedance of 304 Ohms in the LV 2 to can configuration impression: Successful implantation biventricular pacemaker [facility] Electrophysiology codes Pacing Procedure 1: Pacin Insert/Replace Pacer V Procedure 2: Pacin BiV electrode w/Pacer / ICD implant, add on code PG Moderate Sedation Codes Moderate Sedation Codes Procedure 1: Sedation/Anesthesia: 60393 Mod Sedation by the same physician;Init15 Min Child Age 5 & Up Procedure 2: Sedation/Anesthesia: 27523 Mod Sedation by the same physician; Ea [id number] Minutes
[2023-01-04] MEDS: ENTACAPONE 200 MG TAB PO SCH ×2 (16:37→20:47)
[2023-01-04] MEDS: CARBIDOPA/LEVODOPA 25-250 1 EA TAB PO SCH ×2 (16:37→20:48)
[2023-01-04] MEDS ORDERED: ceFAZolin 1000MG 1,000 MG/7.5 ML SYR IV ONE (20:00)
[2023-01-04] MEDS ORDERED: FINASTERIDE 5 MG TAB PO SCH (21:00)
[2023-01-05] MEDS ORDERED: LEVOTHYROXINE SODIUM 25 MCG TABLET PO SCH (06:30)
--- NOTE | 2023-01-05 08:17 | XRay Report ---
XR chest 2V PA/lateral CLINICAL HISTORY: EXACT TIME ORDERED Evaluate for pneumothorax and l TECHNIQUE: 2 views of the chest were obtained. Comparison: Comparison is made to chest radiograph 07/11/2021 FINDINGS: Interval placement of a dual lead pacemaker, the leads terminate in the ventricles. There is interval removal of previously noted leadless pacemaker. Cardiomegaly is noted. Reticular interstitial opacit ies are seen. There is blunting of the costophrenic angle bilaterally. No pneumothorax. IMPRESSION: Interval placement of a dual lead pacemaker with the leads projecting over the ventricles. Blunting o f the bilateral costophrenic angles may represent trace effusions. Cardiomegaly and interstitial lung disease are seen. No pneumothorax. ACT 112: Negative or not required by law. Electronically signed by: Kevin Chou M.D. 01/05/2023 8:15 AM
[2023-01-05] MEDS: CARBIDOPA/LEVODOPA 25-250 1 EA TAB PO SCH (08:35)
[2023-01-05] MEDS: ENTACAPONE 200 MG TAB PO SCH (08:36)
[2023-01-05] MEDS ORDERED: DONEPEZIL HCL 10 MG TAB PO SCH (09:00)
[2023-01-05] MEDS ORDERED: RASAGILINE MESYLATE 1 MG TAB PO SCH (09:00)
[2023-01-05] MEDS ORDERED: TAMSULOSIN HCL 0.4 MG CAP PO SCH (09:00)
[2023-01-05] MEDS ORDERED: FUROSEMIDE 40 MG TAB PO SCH (09:00)
[2023-01-05] MEDS ORDERED: [UNRECOGNIZED DRUG - OTHER] PO SCH (09:00)
--- NOTE | 2023-01-05 09:29 | Discharge Summary ---
Date of Service January 05, 2023 Discharge Data Allergies Allergy/AdvReac Type Severity Reaction Status Date / Time No Known Allergies Allergy Verified 12/15/22 15:43 Procedures Performed Operation Date: 01/04/23 10:00 Actual Procedures s AV Node Ablation - Jesse Dutton MD s Loop Explant - Jesse Dutton MD s Lead LV (No Priopr Implant) - Jesse Dutton MD p Pacer with Ventricular Lead - Jesse Dutton MD Ordered Studies 01/04/23 07:15 EP Lab Images for PACS ONCE Discharge Plan Discharge Items Patient Disposition: Home - Self-Care Reason For Visit: Atrial Fibrillation Discharge Diagnosis: Atrial fibrillation Condition on Discharge: Good Activity: Resume your previous activity Lifting: No more than 10 pounds Lifting Comment: No lifting left arm above shoulder or behind neck for 6 weeks Bathing: Keep incision dry Bathing Comment: Keep wound dry and steri-strips intact until f/u next week Exercise/Sports: Gradually increase as tolerated Driving/Machine Use: Resume 1 day after discharge Non-emergency contact: Private [employer]igator [employer] Call non-emergency contact if: you have any medication questions, you have a fever, your wound has increased redness, your wound has increased drainage and your wound pain has increased Follow-up/Referrals: Jeffery Daniel MD [Primary Care Provider] - Diet: Heart Healthy Addtl Attending Provider Instructions: May remove outer dresing in AM Do not resume ELiquis until WednesdayJanuary 08 Pending Studies at Discharge: No Stand-Alone Forms: [facility], Smoking Cessation Medications and DC Order Prescriptions: Continued donepezil 5 mg tablet 10 mg PO DAILY furosemide 40 mg tablet 40 mg PO DAILY Qty: 90 3RF rasagiline 1 mg tablet 1 mg PO DAILY Qty: 30 2RF cyanocobalamin (vitamin B-12) 2,000 mcg tablet 2,000 mcg PO DAILY levothyroxine 25 mcg tablet 25 mcg PO QAM Qty: 90 3RF entacapone 200 mg tablet 200 mg PO QID 90 Days Qty: 360 1RF Rx Instructions: Take with Sinemet 6am,12am,6pm,12pm carbidopa-levodopa 25-250 mg tablet 2 tab PO QID 90 Days Qty: 720 1RF finasteride 5 mg tablet 5 mg PO HS Qty: 90 0RF tamsulosin 0.4 mg capsule 0.4 mg PO DAILY Qty: 90 3RF Eliquis 5 mg tablet 2.5 mg PO BID Citracal-D3 Maximum Plus 325 mg-12.5 mcg -2.75 mg tablet 1 tab PO DAILY Patient Comments: 650 mg daily cholecalciferol (vitamin D3) [Vitamin D3] 50 mcg (2,000 unit) capsule 50 mcg PO QAM Discharge Orders: Discharge Order (Routine); Ordered 01/05/23 Ordered By: Jesse Dutton Admission Data Admit Date/Time: 01/04/23 13:28 Attending Provider: Jesse Dutton Admit Provider: Jesse Dutton Primary Care Provider: Jeffery Daniel Coding Diagnoses
--- NOTE | 2023-01-05 13:27 | Electrocardiogram Report ---
Test Reason : Blood Pressure : / mmHG Vent. Rate : 084 BPM Atrial Rate : 214 BPM P-R Int : 000 ms QRS Dur : 158 ms QT Int : 442 ms P-R-T Axes : 000 -50 080 degrees QTc Int : 522 ms Ventricular-paced rhythm Abnormal ECG When compared with ECG of 11-JUL-2021 16:41, Electronic ventricular pacemaker has replaced Atrial fibrillation Confirmed by Humberto Mead ([id number]) on 01/05/2023 1:26:58 PM Referred By: Cb Dutton Confirmed By:Humberto Mead
== END 2023-01-05 12:39 | disposition home or self-care (01) | DRG 229 ==
LOC: EP 09:06 → 2E 13:28